=== PATIENT | female | born 1980 | race African-American/Black ===

== ENCOUNTER 2016-12-29 07:23 | Emergency (ER) | payer MEDICAID ==
[~2016-12-29] VITALS: Ht 170.2 cm; Wt 54.4 kg
[~2016-12-29 07:23] MED LIST: AMOXICILLIN500 MG ORAL; AUGMENTIN 875-1 EAC1 ORAL; CLINDAMYCIN HC300 MG ORAL; IBUPROFEN600 MG ORAL; NKM; ROBITUSSIN DM5 ML GT; VITAFOL-OB+DHA1 EACH PO; ZOFRAN ODT4 MG ORAL
[2016-12-29] MEDS ORDERED: CORTISPORIN EAR10 ML OTIC (07:51)
[2016-12-29] MEDS ORDERED: IBUPROFEN600 MG ORAL (07:51)
[2016-12-29] MEDS ORDERED: CIPROFLOXACIN500 M2 ORAL (07:51)
--- NOTE | 2016-12-29 08:26 | Emergency Room Report ---
History of Present Illness General Chief Complaint: Earache Source: Patient Present Illness HPI 36YO F with 2 days left ear pain, decreased hearing, drainage from ear. Denies fever/chills or frequent ear infections. Denies HTN, DM. Allergies: Coded Allergies: No Known Allergies (Unverified , 08/20/14) Patient History Past Medical History: none Past Surgical History: none Pertinent Family History: none Social History: Denies: alcohol use, drug use, smoking Last Menstrual Period: 11/2016 Now: No Immunizations: UTD Reviewed Nursing Documentation: PMH: Agreed, PSxH: Agreed Nursing Documentation-PMH Past Medical History: No Stated History Review of Systems All Other Systems: negative except mentioned in HPI Physical Exam Vital Signs Date Time Temp Pulse Resp B/P Pulse Ox O2 Delivery O2 Flow Rate FiO2 12/29/16 07:27 98.2 70 14 126/87 98 Room Air Sp02 EP Interpretation: reviewed, normal General Appearance: normal inspection, well appearing, no apparent distress, alert, GCS 15, non-toxic Head: normocephalic, atraumatic Eyes: bilateral eye EOMI, bilateral eye PERRL ENT: normal ENT inspection, hearing grossly normal, normal pharynx, no angioedema, normal voice, uvula midline, moist mucus membranes, other - Left outter ear swollen, purulent drainage. No pinna ttp. No ttp overlying mastoid. Neck: normal inspection, full range of motion, supple, no bony tend Respiratory: normal inspection, lungs clear, normal breath sounds, no respiratory distress, no retraction, no wheezing Cardiovascular #1: regular rate, rhythm, no edema Gastrointestinal: normal inspection, normal bowel sounds, non tender, soft, no guarding, no hernia Genitourinary: no CVA tenderness Musculoskeletal: normal inspection, back normal, normal range of motion, Gee' s Sign negative Neurologic: normal inspection, alert, oriented x3, responsive, printing roller polisher III-XII nml as tested, motor strength/tone normal, speech normal Psychiatric: normal inspection, judgement/insight normal, mood/affect normal Skin: normal inspection, normal color, no rash Lymphatic: normal inspection Medical Decision Making Diagnostic Impression: Primary Impression: Earache, left ER Course 36YOF with left earache. VSS. Afebrile. Concern for left otitis externa NOT malignant as no pinna or mastoid ttp and no DM comorbidity Ear wick placed in left ear and I placed initial otic drops Rx otic drops, PO Abx, Analgesia Advised return in 3 days to replace wick Last Vital Signs Date Time Temp Pulse Resp B/P Pulse Ox O2 Delivery O2 Flow Rate FiO2 12/29/16 07:27 98.2 70 14 126/87 98 Room Air Status: improved Disposition: HOME, SELF-CARE Condition: Improved Scripts Ibuprofen* (MOTRIN*) 600 Mg Tablet 600 MG ORAL THREE TIMES A DAY, #30 TAB 0 Refills Prov: TONIA RAMESH M.D. 12/29/16 Ciprofloxacin Hcl* (CIPROFLOXACIN HCL*) 500 Mg Tablet 500 MG ORAL Q12H for 7 Days, #14 TAB 0 Refills Prov: TONIA RAMESH M.D. 12/29/16 Neomycin/Polymyxin B Sulf/Hc* (CORTISPORIN EAR SOLUTION*) 10 Ml Solution 4 DROP OTIC TID for 10 Days, #1 EA Instill in affected ear as directed for 7 days Prov: TONIA RAMESH M.D. 12/29/16 Referrals: NON PHYSICIAN (PCP) Patient Instructions: Otitis Externa, [id number] Additional Instructions: - Use ear drops in left ear as prescribed - Take ALL the oral antibiotic as prescribed - Ibuprofen every 8 hours with food for pain - Return to ER in 1 week for wick removal - Follow up with primary care doctor TONIA RAMESH M.D. Dec 29, 2016 08:26
[2016-12-29 08:40] VITALS: BP 126/87
[2016-12-29 08:41] VITALS: BP 126/87
== END 2016-12-29 08:41 | disposition home or self-care (01) ==
LOC: EMR 07:44
DX: H92.02 Otalgia, left ear (principal)
CPT/HCPCS: 99284

== ENCOUNTER 2017-03-31 23:12 | Emergency (ER) | payer MEDICAID ==
[~2017-03-31] VITALS: Ht 167.6 cm; Wt 49.9 kg
[~2017-03-31 23:12] MED LIST changes: +CIPROFLOXACIN500 M2 ORAL; +CORTISPORIN EAR10 ML OTIC
[2017-03-31 23:25] VITALS: BP 110/70
[2017-03-31] MEDS ORDERED: TYLENOL EXTRA500 MG ORAL (23:39)
[2017-03-31] MEDS ORDERED: Acetaminophen 500mg (ES) tab ORAL ONE (23:45)
[2017-03-31 23:54] VITALS: BP 110/70
--- NOTE | 2017-04-01 01:10 | Emergency Room Report ---
History of Present Illness General Chief Complaint: Head Injury Source: Patient Present Illness HPI 36-year-old female presents ED complaining of headache x3 days. States that 3 days ago she had a slip and fall in the bathroom she hit her head against a towel rack. Denies LOC. Notes persistent pain to left side of her head since. Pain is sharp, 7/10, nonradiating. Denies any nausea or vomiting. Denies any photophobia or blurry vision. Denies any amnesia regarding the events. Patient does not take any blood thinners. No other aggravating or relieving factors. Denies any other associated symptoms Allergies: Coded Allergies: No Known Allergies (Unverified , 08/20/14) Patient History Past Medical History: none Past Surgical History: none Pertinent Family History: none Social History: Denies: alcohol use, drug use, smoking Now: No - 03/17/17 Immunizations: UTD Reviewed Nursing Documentation: PMH: Agreed, PSxH: Agreed Nursing Documentation-PMH Past Medical History: No Stated History Hx Cardiac Problems: No Hx Hypertension: No Hx Pacemaker: No Hx Asthma: No Hx COPD: No Hx Diabetes: No Hx Cancer: No Hx Gastrointestinal Problems: No Hx Dialysis: No History Of Psychiatric Problem: No Hx Neurological Problems: No Hx Cerebrovascular Accident: No Hx Seizures: No Review of Systems All Other Systems: negative except mentioned in HPI Physical Exam Vital Signs Date Time Temp Pulse Resp B/P Pulse Ox O2 Delivery O2 Flow Rate FiO2 03/31/17 23:18 98.4 78 16 110/70 98 Room Air Sp02 EP Interpretation: reviewed, normal General Appearance: no apparent distress, alert, GCS 15, non-toxic Head: normocephalic, other - TTP L parietal scalp Eyes: bilateral eye PERRL, bilateral eye normal inspection ENT: hearing grossly normal, normal pharynx, no angioedema, normal voice Neck: full range of motion, no bony tend, supple/symm/no masses Respiratory: normal inspection Cardiovascular #1: normal inspection Gastrointestinal: normal inspection Rectal: deferred Genitourinary: no CVA tenderness Musculoskeletal: normal inspection Neurologic: alert, oriented x3, responsive, motor strength/tone normal, sensory intact, speech normal Psychiatric: normal inspection Skin: normal inspection Lymphatic: normal inspection Medical Decision Making Diagnostic Impression: Primary Impression: Acute head injury Qualified Codes: S09.90XA - Unspecified injury of head, initial encounter ER Course Hospital Course 36-year-old female presents ED complaining of headache s/p hitting head on towel rack. x 3 days Differential diagnoses include: scalp laceration, scalp contusion, concussion, intracranial injry Clinical course Patient placed on stretcher. After initial history, my physical exam reveals a young female in no acute distress. Her is point tenderness to the left parietal scalp at the site of injury. However no laceration noted. Small nodular swelling noted at site No thomason sign. No hemotympanum. remainder of physical exam unremarkable. per gabonese head CT rules, she is at low risk for intracranial injury. CT not warranted at this time. Patient agrees. given tylenol in ED Diagnosis - acute head injury Stable and discharged to home with Rx Tylenol. Followup with PMD. Return to ED if symptoms recur or worsen Last Vital Signs Date Time Temp Pulse Resp B/P Pulse Ox O2 Delivery O2 Flow Rate FiO2 03/31/17 23:18 98.4 78 16 110/70 98 Room Air Status: improved Disposition: HOME, SELF-CARE Condition: Stable Scripts Acetaminophen* (TYLENOL EXTRA STRENGTH*) 500 Mg Tablet 500 MG ORAL Q8H Y for Prn Headache/Temp > 101, #30 TAB 0 Refills Prov: JESSE YEN M.D. 03/31/17 Referrals: [facility],REFERR[facility] (PCP) Patient Instructions: Post-Concussion Syndrome, [id number] JESSE YEN M.D. Apr 01, 2017 01:10
== END 2017-03-31 23:54 | disposition home or self-care (01) ==
LOC: EMR 23:34
DX: S09.90XA Unspecified injury of head, initial encounter (principal); W01.198A Fall on same level from slipping, tripping and stumbling with subsequent striking against other object, initial encounter; Y92.002 Bathroom of unspecified non-institutional (private) residence as the place of occurrence of the external cause
CPT/HCPCS: 99284

== ENCOUNTER 2017-04-13 06:39 | Emergency (ER) | payer MEDICAID ==
[~2017-04-13] VITALS: Ht 170.2 cm; Wt 59.0 kg
[~2017-04-13 06:39] MED LIST changes: +TYLENOL EXTRA500 MG ORAL
[2017-04-13 08:13] LABS: BASOPHILS % (AUTO) 1.2 % (0.0-2.0); LYMPHOCYTES % (AUTO) 51.7 % (20.0-45.0); MEAN CORPUSCULAR HEMOGLOBIN 29.9 PG (27.0-31.0); MEAN CORPUSCULAR HGB CONC 32.5 G/DL (32.0-36.0); MEAN CORPUSCULAR VOLUME 92 FL (80-99); MEAN PLATELET VOLUME 8.3 FL (6.5-10.1); MONOCYTES % (AUTO) 8.8 % (1.0-10.0); NEUTROPHILS % (AUTO) 35.3 % (45.0-75.0); PLATELET COUNT 163 K/UL (150-450); RED BLOOD COUNT 4.45 M/UL (4.20-5.40); RED CELL DISTRIBUTION WIDTH 12.1 % (11.6-14.8); WHITE BLOOD COUNT 3.7 K/UL (4.8-10.8)
[2017-04-13 08:22] VITALS: BP 135/67
[2017-04-13 08:32] LABS: ALANINE AMINOTRANSFERASE 10 U/L (3-33); ALBUMIN/GLOBULIN RATIO 1.6 (1.0-2.7); ANION GAP 10 (5-15); ASPARTATE AMINO TRANSFERASE 14 U/L (5-40); CALCIUM 10.2 mg/dL (8.6-10.2); CARBON DIOXIDE 26 mEQ/L (20-30); CHLORIDE 103 mEQ/L (98-107); CREATININE 0.7 mg/dL (0.5-0.9); GLOMERULAR FILTRATION RATE > 60 mL/min (>60); HEMOLYSIS 3; POTASSIUM 4.3 mEQ/L (3.4-4.9); SODIUM 139 mEQ/L (135-145); TOTAL PROTEIN 6.9 g/dL (6.6-8.7)
--- NOTE | 2017-04-13 08:37 | Emergency Room Report ---
History of Present Illness General Chief Complaint: Pain Source: Patient Present Illness HPI 36-year-old female presents to ED complaining of pain to her right thigh. States that she had an "infection" of her skin; was seen in urgent care approximately 2 weeks ago and was prescribed antibiotics. Patient states she's been compliant with the clindamycin but states the pain persists. Pain is a 8/ 10, throbbing, localized to the posterior proximal right thigh, nonradiating. Denies fevers or chills. Denies any discharge. Patient states able to walk without difficulty. Denies any discharge. No other aggravating or relieving factors. Denies any other associated symptoms Allergies: Coded Allergies: No Known Allergies (Unverified , 08/20/14) Patient History Past Medical History: none Past Surgical History: none Pertinent Family History: none Social History: Denies: alcohol use, drug use, smoking Last Menstrual Period: now Now: No Immunizations: UTD Reviewed Nursing Documentation: PMH: Agreed, PSxH: Agreed Nursing Documentation-PMH Past Medical History: No Stated History Hx Cardiac Problems: No Hx Hypertension: No Hx Pacemaker: No Hx Asthma: No Hx COPD: No Hx Diabetes: No Hx Cancer: No Hx Gastrointestinal Problems: No Hx Dialysis: No Hx Neurological Problems: No Hx Cerebrovascular Accident: No Hx Seizures: No Review of Systems All Other Systems: negative except mentioned in HPI Physical Exam Vital Signs Date Time Temp Pulse Resp B/P Pulse Ox O2 Delivery O2 Flow Rate FiO2 04/13/17 07:05 97.9 56 18 135/67 98 Room Air Sp02 EP Interpretation: reviewed, normal General Appearance: no apparent distress, alert, GCS 15, non-toxic Head: normocephalic Eyes: bilateral eye PERRL, bilateral eye normal inspection ENT: normal ENT inspection Neck: normal inspection Respiratory: normal inspection Cardiovascular #1: normal inspection Gastrointestinal: normal bowel sounds, non tender, soft, non-distended, no guarding, no rebound Rectal: deferred Genitourinary: no CVA tenderness Musculoskeletal: back normal, gait/station normal, normal range of motion, tender - TTP proximal R posterior thigh Neurologic: alert, oriented x3, responsive, motor strength/tone normal, sensory intact, speech normal Psychiatric: judgement/insight normal, memory normal, mood/affect normal, no suicidal/homicidal ideation Skin: normal inspection Lymphatic: normal inspection Procedures Additional Procedure Procedure Narrative Bedside ultrasound Patient placed in left lateral decubitus position. Ultrasound probe was applied using sterile technique. Evidence of cobblestoning noted underneath the subcutaneous tissue. No induration. No fluctuance. No signs of abscess. She tolerated procedure without difficulty Medical Decision Making Diagnostic Impression: Primary Impression: Cellulitis of right thigh ER Course 36-year-old female presents to ED complaining of pain to the right thigh. Was initially treated for cellulitis at an urgent care Differential-abscess, cellulitis, dermatitis She placed on stretcher after initial history physical exam reveals a female in no acute distress. There is some palpable tenderness to the right posterior thigh but there is no signs of induration or erythema. No fluctuance. Patient initially very upset, give limited information to the triage nurse. Explained to patient that we can check some blood work to insure no signs of systemic infection and consider noninvasive imaging of the leg Given the patient is young and there is no signs of systemic toxicity we both agree that CT imaging is not warranted at this time I performed bedside ultrasound on the affected leg I ordered the site of tenderness there is some evidence of cobblestoning consistent with cellulitis. There is no evidence of a deep abscess Labs were performed and were unremarkable. No leukocytosis, hemoglobin within normal limits, glucose okay Discussed findings with the patient. Patient is now more comfortable and amicable. Continue antibiotics for the patient, prescribe stronger pain medication. I did discuss the option for the patient to return to ED for CT imaging if symptoms do not improve. She states she is not happy with her PMD. I did provide her referral information for PMD here Diagnosed as cellulitis of right thigh Stable and discharged to home with prescription for Bactrim,, #3. Warm compresses. Followup with PMD. Return to ED if symptoms recur or worsen Labs Test 04/13/17 07:45 White Blood Count 3.7 K/UL (4.8-10.8) Red Blood Count 4.45 M/UL (4.20-5.40) Hemoglobin 13.3 G/DL (12.0-16.0) Hematocrit 41.0 % (37.0-47.0) Mean Corpuscular Volume 92 FL (80-99) Mean Corpuscular Hemoglobin 29.9 PG (27.0-31.0) Mean Corpuscular Hemoglobin Concent 32.5 G/DL (32.0-36.0) Red Cell Distribution Width 12.1 % (11.6-14.8) Platelet Count 163 K/UL (150-450) Mean Platelet Volume 8.3 FL (6.5-10.1) Neutrophils (%) (Auto) 35.3 % (45.0-75.0) Lymphocytes (%) (Auto) 51.7 % (20.0-45.0) Monocytes (%) (Auto) 8.8 % (1.0-10.0) Eosinophils (%) (Auto) 3.0 % (0.0-3.0) Basophils (%) (Auto) 1.2 % (0.0-2.0) Sodium Level 139 mEQ/L (135-145) Potassium Level 4.3 mEQ/L (3.4-4.9) Chloride Level 103 mEQ/L (98-107) Carbon Dioxide Level 26 mEQ/L (20-30) Anion Gap 10 (5-15) Blood Urea Nitrogen 14 mg/dL (7-23) Creatinine 0.7 mg/dL (0.5-0.9) Estimat Glomerular Filtration Rate > 60 mL/min (>60) Glucose Level 104 mg/dL (74-106) Calcium Level 10.2 mg/dL (8.6-10.2) Total Bilirubin 0.3 mg/dL (0.0-1.2) Aspartate Amino Transf (AST/SGOT) 14 U/L (5-40) Alanine Aminotransferase (ALT/SGPT) 10 U/L (3-33) Alkaline Phosphatase 55 U/L (35-104) Total Protein 6.9 g/dL (6.6-8.7) Albumin 4.3 g/dL (3.5-5.2) Globulin 2.6 g/dL Albumin/Globulin Ratio 1.6 (1.0-2.7) Last Vital Signs Date Time Temp Pulse Resp B/P Pulse Ox O2 Delivery O2 Flow Rate FiO2 04/13/17 08:22 97.9 18 135/67 98 Room Air 04/13/17 07:05 56 Status: improved Disposition: HOME, SELF-CARE Condition: Stable Scripts Trimethoprim/Sulfamethoxazole 160/800* (BACTRIM DS TABLET*) 1 Each Tablet 1 TAB ORAL Q12H, #14 TAB 0 Refills Prov: JESSE YEN M.D. 04/13/17 Acetaminophen With Codeine (T#3) (TYLENOL #3 TAB*) Y Tab 1 TAB ORAL Q8H Y for For Pain, #20 TAB Prov: JESSE YEN M.D. 04/13/17 Referrals: [facility]ERR[facility] (PCP) JESSE YEN M.D. Apr 13, 2017 08:37
[2017-04-13] MEDS ORDERED: BACTRIM DS TAB1 EAC1 ORAL (08:40)
[2017-04-13] MEDS ORDERED: ACETAMINOPHEN-1 EAC1 ORAL (08:40)
[2017-04-13 08:42] VITALS: BP 135/67
== END 2017-04-13 08:42 | disposition home or self-care (01) ==
LOC: EMR 07:23
DX: L03.115 Cellulitis of right lower limb (principal)
CPT/HCPCS: 36415; 80053; 85025; 99284

== ENCOUNTER 2017-06-01 15:11 | Emergency (ER) | payer MEDICAID ==
[~2017-06-01] VITALS: Ht 170.2 cm; Wt 58.1 kg
[~2017-06-01 15:11] MED LIST changes: +ACETAMINOPHEN-1 EAC1 ORAL; +BACTRIM DS TAB1 EAC1 ORAL
--- NOTE | 2017-06-01 15:35 | Emergency Room Report ---
History of Present Illness General Chief Complaint: Sore Throat Source: Patient Present Illness HPI 36 YO female presents to the ED c/o : sore throat x 2 days, no fevers, chills, nasal congestion, body aches, neck stiffness or GODINEZ. reports ill contact who is being treated for pharyngis, pt. states she shared smoking equipment with friend who is now sick. She denies rashes, abdominal pain, cough, she of immunocompromise, wheezing, history of asthma or COPD. Denies CP, Palpitations, LOC, AMS, dizziness, Changes in Vision, Sensation, paresthesias, or a sudden severe headache. Allergies: Coded Allergies: No Known Allergies (Unverified , 08/20/14) Patient History Past Medical History: see triage record Past Surgical History: none Pertinent Family History: none Last Menstrual Period: on period Now: No Immunizations: UTD Reviewed Nursing Documentation: PMH: Agreed, PSxH: Agreed Nursing Documentation-PMH Past Medical History: No Stated History Hx Cardiac Problems: No Hx Hypertension: No Hx Pacemaker: No Hx Asthma: No Hx COPD: No Hx Diabetes: No Hx Cancer: No Hx Gastrointestinal Problems: No Hx Dialysis: No History Of Psychiatric Problem: No Hx Neurological Problems: No Hx Cerebrovascular Accident: No Hx Seizures: No Review of Systems All Other Systems: negative except mentioned in HPI Physical Exam Vital Signs Date Time Temp Pulse Resp B/P (MAP) Pulse Ox O2 Delivery O2 Flow Rate FiO2 06/01/17 15:20 98.1 60 16 117/80 98 Room Air Sp02 EP Interpretation: reviewed, normal General Appearance: no apparent distress, alert, GCS 15, non-toxic Head: normocephalic, atraumatic Eyes: bilateral eye normal inspection, bilateral eye PERRL ENT: hearing grossly normal, normal pharynx, no angioedema, normal voice, TMs + canals normal, uvula midline, pharyngeal erythema - very mild erythema, no exudates, no tonsillar swelling, no LAD Neck: full range of motion, no meningismus, no bony tend, supple/symm/no masses Respiratory: chest non-tender, lungs clear, normal breath sounds, no respiratory distress, no wheezing, speaking full sentences Cardiovascular #1: regular rate, rhythm Gastrointestinal: normal bowel sounds, non tender, soft, no guarding, no rebound Rectal: deferred Genitourinary: normal inspection, no CVA tenderness Musculoskeletal: back normal, gait/station normal, normal range of motion, non- tender Neurologic: alert, oriented x3, responsive, motor strength/tone normal, sensory intact, speech normal Psychiatric: judgement/insight normal, memory normal, mood/affect normal Skin: normal color, no rash, warm/dry, well hydrated Lymphatic: no adenopathy Medical Decision Making PA Attestation Dr. conte is my supervising Physician whom patient management has been discussed with. Diagnostic Impression: Primary Impression: Pharyngitis, acute Qualified Codes: J02.9 - Acute pharyngitis, unspecified ER Course 36 YO female presents to the ED c/o : sore throat x 2 days, no fevers, chills, nasal congestion, body aches, neck stiffness or GODINEZ. reports ill contact who is being treated for pharyngis, pt. states she shared smoking equipment with friend who is now sick. She denies rashes, abdominal pain, cough, she of immunocompromise, wheezing, history of asthma or COPD. Denies CP, Palpitations, LOC, AMS, dizziness, Changes in Vision, Sensation, paresthesias, or a sudden severe headache. Ddx considered but are not limited to: pharyngitis, strep, COLLAR STARCHER, ludwigs angina, URI Vital signs: are WNL, pt. is afebrile H&PE are most consistent with: pharyngitis presumed irritant , viral less likely due to absence of additional symptoms. ORDERS: None required at this time as the diagnosis is clinical ED INTERVENTIONS: none required at this time. - pt given reassurance. - D/w pt. conservative treatment with PMD follow up . Pt given ED return precautions. DISCHARGE: At this time pt. is stable for d/c to home. Will provide printed patient care instructions, and any necessary prescriptions. Care plan and follow up instructions have been discussed with the patient prior to discharge. Last Vital Signs Date Time Temp Pulse Resp B/P (MAP) Pulse Ox O2 Delivery O2 Flow Rate FiO2 06/01/17 15:20 98.1 60 16 117/80 98 Room Air Disposition: HOME, SELF-CARE Condition: Stable Scripts Lidocaine HCl 2% Viscous (Lidocaine HCl 2% Viscous) 100 Ml Solution 15 ML ORAL QID, #160 ML Prov: Ligia Junior P.A. 9/16/17 Ibuprofen* (MOTRIN*) 600 Mg Tablet 600 MG ORAL THREE TIMES A DAY, #30 TAB 0 Refills Prov: Ligia Junior 06/01/17 Departure Forms: Return to Work Return to Work Date: Jun 04, 2017 Work Restrictions: None Return to Full Activity: Jun 04, 2017 Patient Instructions: Pharyngitis, Sore Throat Additional Instructions: Take medications as directed. Follow up with a Primary Care Provider in 3-5 days, even if your symptoms have resolved. --Please review list of primary care clinics, if you do not already have a primary care provider Return sooner to ED if new symptoms occur, or current symptoms become worse. - Please note that this Emergency Department Report was dictated using [employer] network engineer technology software, occasionally this can lead to erroneous entry secondary to interpretation by the dictation equipment. Ligia Junior Jun 01, 2017 15:35
[2017-06-01] MEDS ORDERED: IBUPROFEN600 MG ORAL (15:36)
[2017-06-01] MEDS ORDERED: LIDOCAINE VISC100 ML ORAL (15:36)
[2017-06-01 15:41] VITALS: BP 117/80
== END 2017-06-01 16:37 | disposition home or self-care (01) ==
LOC: EMR 16:01
DX: J02.9 Acute pharyngitis, unspecified (principal)
CPT/HCPCS: 99284

== ENCOUNTER 2017-07-30 21:19 | Emergency (ER) | payer MEDICAID ==
[~2017-07-30] VITALS: Ht 170.2 cm; Wt 56.7 kg
[~2017-07-30 21:19] MED LIST changes: +LIDOCAINE VISC100 ML ORAL
[2017-07-30 21:46] VITALS: BP 122/77
[2017-07-30 22:29] LABS: ANION GAP 6 mmol/L (5-15); BASOPHILS % (AUTO) 1.5 % (0.0-2.0); CALCIUM 9.9 MG/DL (8.5-10.1); CARBON DIOXIDE 29 MMOL/L (21-32); CHLORIDE 104 MMOL/L (98-107); CREATININE 0.8 MG/DL (0.55-1.30); EOSINOPHILS % (AUTO) 2.2 % (0.0-3.0); GLOMERULAR FILTRATION RATE > 60 mL/min (>60); LYMPHOCYTES % (AUTO) 49.4 % (20.0-45.0); MEAN CORPUSCULAR HEMOGLOBIN 28.9 PG (27.0-31.0); MEAN CORPUSCULAR HGB CONC 31.2 G/DL (32.0-36.0); MEAN CORPUSCULAR VOLUME 93 FL (80-99); MEAN PLATELET VOLUME 7.6 FL (6.5-10.1); MONOCYTES % (AUTO) 5.6 % (1.0-10.0); NEUTROPHILS % (AUTO) 41.4 % (45.0-75.0); PLATELET COUNT 169 K/UL (150-450); POTASSIUM 3.9 MMOL/L (3.5-5.1); RED BLOOD COUNT 4.45 M/UL (4.20-5.40); RED CELL DISTRIBUTION WIDTH 11.4 % (11.6-14.8); SODIUM 139 MMOL/L (136-145)
[2017-07-30 22:43] LABS: ALANINE AMINOTRANSFERASE 17 U/L (12-78); ALBUMIN/GLOBULIN RATIO 1.2 (1.0-2.7); ASPARTATE AMINO TRANSFERASE 14 U/L (15-37); MAGNESIUM 1.8 MG/DL (1.8-2.4); THYROID STIMULATING HORMONE 1.659 uiU/mL (0.360-3.740); TOTAL PROTEIN 7.6 G/DL (6.4-8.2)
[2017-07-30 23:35] LABS: ERYTHROCYTE SEDIMENTATION RATE 1 MM/HR (0-20)
[2017-07-30 23:55] VITALS: BP 122/77
--- NOTE | 2017-07-31 04:31 | Emergency Room Report ---
History of Present Illness General Chief Complaint: Neck Pain Source: Patient Present Illness HPI Patient is a 36-year-old female who presented after increased neck pain and right-sided arm numbness. Patient gradual onset of symptoms. She reports having discomfort to the entire right hand. She reports having this having some numbness sensation. The patient denies recent trauma. She reports no alcohol use. She states that intermittently her hands will changed colors to a purplish especially with cold. She denies any fever. She denied having any chest pain the patient reports having some pain to the right side of her neck. Allergies: Coded Allergies: No Known Allergies (Unverified , 08/20/14) Patient History Past Medical History: see triage record Last Menstrual Period: Jul Reviewed Nursing Documentation: PMH: Agreed, PSxH: Agreed Nursing Documentation-PMH Hx Cardiac Problems: No Hx Hypertension: No Hx Pacemaker: No Hx Asthma: No Hx COPD: No Hx Diabetes: No Hx Cancer: No Hx Gastrointestinal Problems: No Hx Dialysis: No Hx Neurological Problems: No Hx Cerebrovascular Accident: No Hx Seizures: No Review of Systems All Other Systems: negative except mentioned in HPI Physical Exam Vital Signs Date Time Temp Pulse Resp B/P (MAP) Pulse Ox O2 Delivery O2 Flow Rate FiO2 07/30/17 21:30 97.9 88 16 99 Room Air 07/30/17 21:46 122/77 Sp02 EP Interpretation: reviewed, normal General Appearance: normal inspection, well appearing, no apparent distress, alert, GCS 15, non-toxic Head: atraumatic ENT: normal ENT inspection, hearing grossly normal, normal voice Neck: normal inspection, full range of motion, supple, no bony tend Respiratory: normal inspection, lungs clear, normal breath sounds, no respiratory distress, no retraction, no wheezing Cardiovascular #1: regular rate, rhythm, no edema Gastrointestinal: normal inspection, normal bowel sounds, non tender, soft, no guarding, no hernia Genitourinary: no CVA tenderness Musculoskeletal: normal inspection, back normal, normal range of motion Neurologic: normal inspection, alert, oriented x3, responsive, county judge III-XII nml as tested, speech normal Psychiatric: normal inspection, judgement/insight normal, mood/affect normal Skin: normal inspection, normal color, no rash Medical Decision Making Diagnostic Impression: Primary Impression: Paresthesias ER Course Patient presented for upper extremity pain. Differential diagnosis included but was not limited to fracture, contusion, multiple sclerosis, aortic dissection vascular insufficiency, cellulitis. Because of complexity of patient's case laboratory testing and imaging studies were ordered. Laboratory testing was unremarkable. Patient was noted to have some evidence of hyperreflexia. TSH was normal patient's a sedimentation rate was also normal. Patient was advised that she should followup with her primary care physician for further evaluation and possible MRI. The patient is advised to follow up with primary care doctor in 1-2 days. Patient is advised to return if any worsening condition or if any changes in status that are concerning. Labs Test 07/30/17 22:00 07/30/17 22:15 White Blood Count 6.0 K/UL (4.8-10.8) Red Blood Count 4.45 M/UL (4.20-5.40) Hemoglobin 12.9 G/DL (12.0-16.0) Hematocrit 41.2 % (37.0-47.0) Mean Corpuscular Volume 93 FL (80-99) Mean Corpuscular Hemoglobin 28.9 PG (27.0-31.0) Mean Corpuscular Hemoglobin Concent 31.2 G/DL (32.0-36.0) Red Cell Distribution Width 11.4 % (11.6-14.8) Platelet Count 169 K/UL (150-450) Mean Platelet Volume 7.6 FL (6.5-10.1) Neutrophils (%) (Auto) 41.4 % (45.0-75.0) Lymphocytes (%) (Auto) 49.4 % (20.0-45.0) Monocytes (%) (Auto) 5.6 % (1.0-10.0) Eosinophils (%) (Auto) 2.2 % (0.0-3.0) Basophils (%) (Auto) 1.5 % (0.0-2.0) Erythrocyte Sedimentation Rate 1 MM/HR (0-20) Sodium Level 139 MMOL/L (136-145) Potassium Level 3.9 MMOL/L (3.5-5.1) Chloride Level 104 MMOL/L (98-107) Carbon Dioxide Level 29 MMOL/L (21-32) Anion Gap 6 mmol/L (5-15) Blood Urea Nitrogen 7 mg/dL (7-18) Creatinine 0.8 MG/DL (0.55-1.30) Estimat Glomerular Filtration Rate > 60 mL/min (>60) Glucose Level 88 MG/DL (74-106) Calcium Level 9.9 MG/DL (8.5-10.1) Magnesium Level 1.8 MG/DL (1.8-2.4) Total Bilirubin 0.8 MG/DL (0.2-1.0) Aspartate Amino Transf (AST/SGOT) 14 U/L (15-37) Alanine Aminotransferase (ALT/SGPT) 17 U/L (12-78) Alkaline Phosphatase 53 U/L (46-116) Total Protein 7.6 G/DL (6.4-8.2) Albumin 4.1 G/DL (3.4-5.0) Globulin 3.5 g/dL Albumin/Globulin Ratio 1.2 (1.0-2.7) Thyroid Stimulating Hormone (TSH) 1.659 uiU/mL (0.360-3.740) Urine HCG, Qualitative Negative Urine Opiates Screen Negative (NEGATIVE) Urine Barbiturates Screen Negative (NEGATIVE) Phencyclidine (PCP) Screen Negative (NEGATIVE) Urine Amphetamines Screen Negative (NEGATIVE) Urine Benzodiazepines Screen Negative (NEGATIVE) Urine Cocaine Screen Negative (NEGATIVE) Urine Marijuana (THC) Screen Positive (NEGATIVE) EKG Diagnostic Results Rate: normal Rhythm: NSR ST Segments: no acute changes Last Vital Signs Date Time Temp Pulse Resp B/P (MAP) Pulse Ox O2 Delivery O2 Flow Rate FiO2 07/30/17 23:55 97.9 78 17 122/77 100 Room Air Status: improved Disposition: HOME, SELF-CARE Condition: Stable Patient Instructions: Pardella, [id number] Alex Jeff Jul 31, 2017 04:31
--- NOTE | 2017-07-31 09:41 | Diagnostic Imaging Report ---
Indication: PAIN right-sided tingling and numbness Technique: Continuous helical CT scanning of the head was performed without intravenous contrast material. Axial and coronal 5 mm sections were generated. Radiation dose was minimized using automated exposure control Dose: Total Dose Length Product - DLP [address] Dose Index - CTDIvol(s) 70.38 mGy. Comparison: None Findings: The ventricular system is normal in size and configuration. There is no shift of midline structures. No abnormal extra-axial fluid collections are noted. There is no evidence of intracerebral bleeding. No other abnormal high or low density areas are noted within the brain. Intact calvarium. Visualized orbits and sinuses are unremarkable. Impression: Normal CT scan of the head without contrast material. This agrees with the preliminary interpretation provided overnight by [facility] teleradiology service. The CT scanner at [facility] is accredited by the [employer] and the scans are performed using protocols designed to limit radiation exposure to as low as reasonably achievable to attain images of sufficient resolution adequate for diagnostic evaluation.
--- NOTE | 2017-07-31 16:24 | Cardiology Report ---
APPROVED REPORT EKG Measurement Heart [id number] Sinus bradycardia with sinus arrhythmia Septal infarct, age undetermined Abnormal ECG
== END 2017-07-31 00:01 | disposition home or self-care (01) ==
LOC: EMR 22:00
DX: R20.2 Paresthesia of skin (principal); M54.2 Cervicalgia
CPT/HCPCS: 36415; 70450; 80053; 80307; 81025; 83735; 84443; 85025; 85651; 93005; 99284

== ENCOUNTER 2017-09-21 12:43 | Emergency (ER) | payer MEDICAID ==
[~2017-09-21] VITALS: Ht 170.2 cm; Wt 57.2 kg
[2017-09-21] MEDS ORDERED: Lidocaine 1% MPF 10mg/ml 5ml INJ ONE (13:45)
[2017-09-21] MEDS ORDERED: CEPHALEXIN500 MG ORAL (14:10)
[2017-09-21 14:20] VITALS: BP 107/60
--- NOTE | 2017-09-22 12:22 | Emergency Room Report ---
History of Present Illness General Chief Complaint: Pain Source: Patient Present Illness HPI The patient is a 36-year-old female presenting for possible skin infection. She was seen in this emergency department recently and diagnosed with right leg cellulitis. She was given prescription for antibiotics and states that she occasionally took them but not as prescribed. She states that symptoms began to improve but are now returning. She has a 5/10 dull ache to the right thigh and is worse with touch. Does not radiate. She denies any other symptoms including fever, chills, vaginal DC, dysuria Allergies: Coded Allergies: No Known Allergies (Unverified , 08/20/14) Patient History Past Medical History: see triage record Pertinent Family History: none Last Menstrual Period: 09/10/17. Now: No Reviewed Nursing Documentation: PMH: Agreed, PSxH: Agreed Nursing Documentation-PMH Hx Cardiac Problems: No Hx Hypertension: No Hx Pacemaker: No Hx Asthma: No Hx COPD: No Hx Diabetes: No Hx Cancer: No Hx Gastrointestinal Problems: No Hx Dialysis: No History Of Psychiatric Problem: No Hx Neurological Problems: No Hx Cerebrovascular Accident: No Hx Seizures: No Review of Systems All Other Systems: negative except mentioned in HPI Physical Exam Vital Signs Date Time Temp Pulse Resp B/P (MAP) Pulse Ox O2 Delivery O2 Flow Rate FiO2 09/21/17 13:11 97.5 71 17 109/72 98 Room Air Sp02 EP Interpretation: reviewed, normal General Appearance: no apparent distress, alert, GCS 15, non-toxic Head: normocephalic, atraumatic Eyes: bilateral eye normal inspection, bilateral eye PERRL Respiratory: chest non-tender, lungs clear, normal breath sounds, speaking full sentences Musculoskeletal: back normal, gait/station normal, normal range of motion, tender - TTP over the R posterior thigh Neurologic: alert, oriented x3, responsive, motor strength/tone normal, sensory intact, normal gait, speech normal Psychiatric: judgement/insight normal, memory normal, mood/affect normal, no suicidal/homicidal ideation Skin: warm/dry, other - mild erythema to R posterior thigh Medical Decision Making PA Attestation Dr. Harden is my supervising physician. Patient management was discussed with my supervising physician Diagnostic Impression: Primary Impression: Cellulitis of right thigh ER Course The patient is a 36-year-old female presenting for possible skin infection. Differential diagnoses considered but not limited to: abscess, cellulitis, dermatitis, among others PE: Afebrile. NAD Right posterior thigh has an approximately 5 cm erythematous lesion. Mild tenderness to palpation. Skin is warm and dry. No induration External vaginal exam unremarkable. No DC. The patient is given 1 dose of antibiotics in the emergency department and will be discharged with prescription. She was told that she needs to take these as directed in totality in order for the infection to resolve. She understands. ER precautions are given Last Vital Signs Date Time Temp Pulse Resp B/P (MAP) Pulse Ox O2 Delivery O2 Flow Rate FiO2 09/21/17 14:20 68 18 107/60 99 Room Air 09/21/17 14:20 97.5 Status: improved Disposition: HOME, SELF-CARE Condition: Improved Scripts Cephalexin* (KEFLEX*) 500 Mg Capsule 500 MG ORAL EVERY 12 HOURS, #14 CAP 0 Refills Prov: GONZALO RICHMOND 09/21/17 Referrals: [facility],REFERRING (PCP) Patient Instructions: Cellulitis Additional Instructions: I discussed my findings with the patient. All questions and concerns have been answered. Treatment and medication compliance have been addressed. I advised the patient that they need to follow up with PMD in 3-5 days. Return to ED if symptoms worsen, new symptoms arise, or if needed for any reason. Patient verbalized understanding of discharge instructions. GONZALO RICHMOND Sep 22, 2017 12:22
== END 2017-09-21 14:20 | disposition home or self-care (01) ==
LOC: EMR 14:20
DX: L03.115 Cellulitis of right lower limb (principal)
CPT/HCPCS: 96372; 99283; J0696

== ENCOUNTER 2017-12-23 07:13 | Emergency (ER) | payer MEDICAID ==
[~2017-12-23] VITALS: Ht 170.2 cm; Wt 59.0 kg
[~2017-12-23 07:13] MED LIST changes: +CEPHALEXIN500 MG ORAL
[2017-12-23 07:17] VITALS: BP 104/57
[2017-12-23] MEDS ORDERED: CLARITIN-D 121 EAC1 ORAL (07:40)
[2017-12-23] MEDS ORDERED: ADULT WAL-100 MG/5 M ORAL (07:40)
[2017-12-23 07:44] VITALS: BP 104/57
--- NOTE | 2017-12-23 08:52 | Emergency Room Report ---
History of Present Illness General Chief Complaint: Flu Like Symptoms Present Illness HPI Patient is a 37-year-old female presented after increased cough and nasal congestion. Patient gradual onset of symptoms. She reports having increased sore throat. She stated that she had some bilateral eye crusting in the morning. She denies any vomiting.She denies any neck stiffness. She states that she had been having symptoms for the past 3-4 days. She reports some sick contacts at work. Allergies: Coded Allergies: No Known Allergies (Unverified , 08/20/14) Patient History Past Medical History: see triage record Now: No Reviewed Nursing Documentation: PMH: Agreed; PSxH: Agreed Nursing Documentation-PMH Hx Cardiac Problems: No Hx Hypertension: No Hx Pacemaker: No Hx Asthma: No Hx COPD: No Hx Diabetes: No Hx Cancer: No Hx Gastrointestinal Problems: No Hx Dialysis: No Hx Neurological Problems: No Hx Cerebrovascular Accident: No Hx Seizures: No Review of Systems All Other Systems: negative except mentioned in HPI Physical Exam Vital Signs Date Time Temp Pulse Resp B/P (MAP) Pulse Ox O2 Delivery O2 Flow Rate FiO2 12/23/17 07:17 97.8 71 20 104/57 99 Room Air 97.9 General Appearance: well appearing, no apparent distress, alert, GCS 15 Head: normocephalic, atraumatic ENT: hearing grossly normal, normal voice Neck: full range of motion, supple Respiratory: lungs clear, no respiratory distress, speaking full sentences Cardiovascular #1: normal peripheral pulses, regular rate, rhythm, no edema Gastrointestinal: normal inspection, normal bowel sounds, non tender, soft Musculoskeletal: no calf tenderness Neurologic: normal inspection, alert, oriented x3, normal gait Psychiatric: mood/affect normal Skin: no rash Medical Decision Making Diagnostic Impression: Primary Impression: Upper respiratory infection ER Course Patient presented for cough. Differential diagnosis included but was not limited to bronchitis, pneumonia, pulmonary embolism, pericarditis, asthma, foreign body. Patient has a benign exam and does not appear to require any further imaging or laboratory testing at this time. The patient denies being . The patient appears to have an upper respiratory infection which appears to be viral. She does not appear to require antibiotics at this time. Patient was advised to be rechecked by her primary care physician in one to 2 days. Last Vital Signs Date Time Temp Pulse Resp B/P (MAP) Pulse Ox O2 Delivery O2 Flow Rate FiO2 12/23/17 07:44 97.8 20 104/57 99 Room Air 97.9 12/23/17 07:26 71 Status: improved Disposition: HOME, SELF-CARE Condition: Stable Scripts Guaifenesin* (ADULT WAL-TUSSIN*) 100 Mg/5 Ml Liquid 10 ML ORAL Q4H, #120 ML Prov: Alex Jeff 12/23/17 Loratadine/Pseudoephedrine (CLARITIN-D 12 HOUR TABLET) 1 Each Tab.er.12h 1 TAB ORAL EVERY 12 HOURS, #20 TAB Prov: Alex Jeff 12/23/17 Referrals: [facility]ERR[facility] (PCP) Departure Forms: Return to Work Return to Work in (Days): 3 Patient Instructions: Upper Respiratory Infection, Adult, [id number] Alex Jeff Dec 23, 2017 08:52
== END 2017-12-23 07:45 | disposition home or self-care (01) ==
LOC: EMR 07:43
DX: J06.9 Acute upper respiratory infection, unspecified (principal)
CPT/HCPCS: 99284

== ENCOUNTER 2018-03-02 02:47 | Emergency (ER) | payer MEDICAID ==
[~2018-03-02] VITALS: Ht 170.2 cm; Wt 59.9 kg
[~2018-03-02 02:47] MED LIST changes: +ADULT WAL-100 MG/5 M ORAL; +CLARITIN-D 121 EAC1 ORAL
[2018-03-02 03:04] VITALS: BP 101/50
[2018-03-02] MEDS ORDERED: CEPHALEXIN500 MG ORAL (03:11)
[2018-03-02] MEDS ORDERED: PREDNISONE20 MG ORAL (03:11)
[2018-03-02] MEDS ORDERED: DIPHENHYDRAMINE25 M1 ORAL (03:11)
[2018-03-02 03:22] VITALS: BP 101/50
--- NOTE | 2018-03-02 05:43 | Emergency Room Report ---
History of Present Illness General Chief Complaint: General Complaint Source: Patient Present Illness HPI 37-year-old female presents ED complaining of lower lip swelling. Started a few days ago. States that she ate shrimp shortly prior to onset of symptoms. Denies any known food or drug allergies. Denies any tongue swelling or throat swelling. Denies any rash. States pain is dull, 7 out of 10, nonradiating. No other aggravating relieving factors. Denies any other associated symptoms Allergies: Coded Allergies: No Known Allergies (Unverified , 08/20/14) Patient History Past Medical History: none Past Surgical History: none Pertinent Family History: none Social History: Denies: smoking, alcohol use, drug use Last Menstrual Period: 02/16/18 Now: No Immunizations: UTD Reviewed Nursing Documentation: PMH: Agreed; PSxH: Agreed Nursing Documentation-PMH Past Medical History: No Stated History Hx Cardiac Problems: No Hx Hypertension: No Hx Pacemaker: No Hx Asthma: No Hx COPD: No Hx Diabetes: No Hx Cancer: No Hx Gastrointestinal Problems: No Hx Dialysis: No Hx Neurological Problems: No Hx Cerebrovascular Accident: No Hx Seizures: No Review of Systems All Other Systems: negative except mentioned in HPI Physical Exam Vital Signs Date Time Temp Pulse Resp B/P (MAP) Pulse Ox O2 Delivery O2 Flow Rate FiO2 03/02/18 02:52 97.8 70 16 101/50 99 Room Air 97.9 Sp02 EP Interpretation: reviewed, normal General Appearance: no apparent distress, alert, GCS 15, non-toxic Head: normocephalic Eyes: bilateral eye normal inspection, bilateral eye PERRL ENT: hearing grossly normal, normal pharynx, no angioedema, normal voice, other - lower lip swelling Neck: full range of motion, supple/symm/no masses Respiratory: chest non-tender, lungs clear, normal breath sounds, speaking full sentences Cardiovascular #1: normal inspection Gastrointestinal: normal inspection Rectal: deferred Genitourinary: no CVA tenderness Musculoskeletal: normal inspection Neurologic: alert, oriented x3, responsive, motor strength/tone normal, sensory intact, speech normal Psychiatric: normal inspection Skin: no rash Lymphatic: normal inspection Medical Decision Making Diagnostic Impression: Primary Impression: Lip swelling ER Course Hospital Course 37-year-old female presents ED complaining of swelling to the lower lip Differential diagnoses include: Cellulitis, allergic reaction, insect bite, abscess Clinical course Patient placed on stretcher. After initial history, physical exam reveals a female in no acute distress. On exam there is noticeable swelling to the lower lip. No fluctuance or discharge. No erythema or induration. No evidence of urticaria. No stridor or tongue swelling. Etiology to be infectious versus allergic. We will treat both ways Discussed findings with patient. We'll prescribe prednisone, Benadryl, Keflex. Recommend close follow-up with PMD with possible allergy testing Diagnosis - lip swelling stable and discharged to home with prescription for prednisone, Benadryl, Keflex. Instructed to followup with PMD. Instructed return to ED if symptoms recur or worsen Last Vital Signs Date Time Temp Pulse Resp B/P (MAP) Pulse Ox O2 Delivery O2 Flow Rate FiO2 03/02/18 03:22 70 16 101/50 99 Room Air 03/02/18 03:04 97.9 97.9 Status: improved Disposition: HOME, SELF-CARE Condition: Stable Scripts Cephalexin* (KEFLEX*) 500 Mg Capsule 500 MG ORAL EVERY 6 HOURS, #28 CAP Prov: Jose Luis Hough MD 03/02/18 Prednisone* (PREDNISONE*) 20 Mg Tablet 40 MG ORAL DAILY, #10 TAB Prov: Jose Luis Hough MD 03/02/18 Diphenhydramine Hcl* (DIPHENHYDRAMINE HCL*) 25 Mg Capsule 25 MG ORAL Q6H PRN for Itching, #30 CAP 0 Refills Prov: Jose Luis Hough MD 03/02/18 Referrals: NON PHYSICIAN (PCP) Patient Instructions: Food Allergy, [id number] Jose Luis Hough MD Mar 02, 2018 05:43
== END 2018-03-02 03:22 | disposition home or self-care (01) ==
LOC: EMR 03:20
DX: R22.0 Localized swelling, mass and lump, head (principal)
CPT/HCPCS: 99284

== ENCOUNTER 2018-04-08 21:59 | Emergency (ER) | payer MEDICAID ==
[~2018-04-08] VITALS: Ht 170.2 cm; Wt 59.4 kg
[~2018-04-08 21:59] MED LIST changes: +DIPHENHYDRAMINE25 M1 ORAL; +HYDROCODON-ACE1 EA15 ORAL; +MUPIROCIN22 GM TOPIC; +PREDNISONE20 MG ORAL
[2018-04-08 22:18] VITALS: BP 97/62
[2018-04-08] MEDS ORDERED: Sodium Chloride 500ML 500 ML IV ONE (22:36)
[2018-04-08 23:12] LABS: HEMATOCRIT 43.6 % (37.0-47.0); HEMOGLOBIN 14.3 G/DL (12.0-16.0); MEAN CORPUSCULAR VOLUME 88 FL (80-99); PLATELET COUNT 177 K/UL (150-450); RED BLOOD COUNT 4.93 M/UL (4.20-5.40); RED CELL DISTRIBUTION WIDTH 11.3 % (11.6-14.8); WHITE BLOOD COUNT 4.3 K/UL (4.8-10.8)
[2018-04-08 23:13] LABS: APPEARANCE,URINE CLEAR; BILIRUBIN, URINE NEGATIVE (NEGATIVE); COLOR,URINE PALE YELLOW; GLUCOSE, URINE (UA) NEGATIVE (NEGATIVE); KETONES,URINE NEGATIVE (NEGATIVE); LEUKOCYTE ESTERASE ,URINE NEGATIVE (NEGATIVE); NITRITE,URINE NEGATIVE (NEGATIVE); PH,URINE 7 (4.5-8.0); PROTEIN,URINE NEGATIVE (NEGATIVE); UROBILINOGEN,URINE 1 MG/DL (0.0-1.0)
[2018-04-08 23:18] LABS: ANION GAP 6 mmol/L (5-15); BLOOD UREA NITROGEN 17 mg/dL (7-18); CALCIUM 9.7 MG/DL (8.5-10.1); CARBON DIOXIDE 29 MMOL/L (21-32); CHLORIDE 103 MMOL/L (98-107); CREATININE 1.1 MG/DL (0.55-1.30); POTASSIUM 4.4 MMOL/L (3.5-5.1); SODIUM 138 MMOL/L (136-145)
[2018-04-08 23:22] LABS: ALANINE AMINOTRANSFERASE 23 U/L (12-78); ALBUMIN 4.2 G/DL (3.4-5.0); ALKALINE PHOSPHATASE 68 U/L (46-116); ASPARTATE AMINO TRANSFERASE 17 U/L (15-37); BILIRUBIN,TOTAL 0.7 MG/DL (0.2-1.0)
[2018-04-08 23:51] VITALS: BP 0/0
--- NOTE | 2018-04-09 01:36 | Emergency Room Report ---
History of Present Illness General Chief Complaint: Nausea Source: Patient Present Illness HPI 37-year-old female presents ED for evaluation. States that on 04/05 she was here and had I and D of abscess behind her ear. Was discharged on Bactrim. States that she felt "not right" after taking the Bactrim and called ER. Prescription was changed to a different antibiotic. Patient states that she did not start the new antibiotic yet. States that she did stop the Bactrim but still does not feel well. Feels weak. Notes nausea, denies vomiting. Denies diarrhea. Denies any fevers or chills. No other aggravating or relieving factors. Denies any other associated symptoms Allergies: Coded Allergies: No Known Allergies (Unverified , 08/20/14) Patient History Past Medical History: none Past Surgical History: none Pertinent Family History: none Social History: Denies: smoking, alcohol use, drug use Last Menstrual Period: 04/02/18 Now: No Immunizations: UTD Reviewed Nursing Documentation: PMH: Agreed; PSxH: Agreed Nursing Documentation-PMH Past Medical History: No Stated History Hx Cardiac Problems: No Hx Hypertension: No Hx Pacemaker: No Hx Asthma: No Hx COPD: No Hx Diabetes: No Hx Cancer: No Hx Gastrointestinal Problems: No Hx Dialysis: No Hx Neurological Problems: No Hx Cerebrovascular Accident: No Hx Seizures: No Review of Systems All Other Systems: negative except mentioned in HPI Physical Exam Vital Signs Date Time Temp Pulse Resp B/P (MAP) Pulse Ox O2 Delivery O2 Flow Rate FiO2 04/08/18 22:07 98.2 61 18 97/62 96 Room Air 98.2 Sp02 EP Interpretation: reviewed, normal General Appearance: no apparent distress, alert, GCS 15, non-toxic Head: normocephalic, atraumatic Eyes: bilateral eye normal inspection, bilateral eye PERRL ENT: hearing grossly normal, normal pharynx, no angioedema, normal voice Neck: full range of motion, supple/symm/no masses Respiratory: chest non-tender, lungs clear, normal breath sounds, speaking full sentences Cardiovascular #1: regular rate, rhythm, no edema Cardiovascular #2: 2+ carotid (R), 2+ carotid (L), 2+ radial (R), 2+ radial (L) , 2+ dorsalis pedis (R), 2+ dorsalis pedis (L) Gastrointestinal: normal bowel sounds, non tender, soft, non-distended, no guarding, no rebound Rectal: deferred Genitourinary: normal inspection, no CVA tenderness Musculoskeletal: back normal, gait/station normal, normal range of motion, non- tender Neurologic: alert, oriented x3, responsive, motor strength/tone normal, sensory intact, speech normal Psychiatric: judgement/insight normal, memory normal, mood/affect normal, no suicidal/homicidal ideation Reflexes: 3+ bicep (R), 3+ bicep (L), 3+ tricep (R), 3+ tricep (L), 3+ knee (R) , 3+ knee (L) Skin: normal color, no rash, warm/dry, well hydrated Lymphatic: no adenopathy Medical Decision Making Diagnostic Impression: Primary Impression: Generalized weakness ER Course Hospital Course 37-year-old female presents ED complaining of weakness, nausea after taking Bactrim differential diagnosis: gastritis, gastroenteritis, dehdration, UTI Clinical course Patient placed on stretcher. On cardiac rn. After initial history and physical I ordered labs, IV fluids, Zofran Labs - no leukocytosis, electrolytes ok, UA unremarkable On reassessment patient states she feels better. Patient safe for discharge pending close outpatient follow-up. I encouraged patient to start the new abx Rx I feel this is a highly complex case requiring extensive working including EKG/ Rhythm strip, Xray/CT/US, Blood/urine lab work, repeat exams while in ED, and administration of strong opiates/narcotics for pain control, admission to hospital or close patient follow up. Diagnosis - generalized weakness Stable and discharged to home. Followup with PMD. Return to ED if symptoms recur or worsen Labs Test 04/08/18 22:45 04/08/18 22:50 Urine Color Pale yellow Urine Appearance Clear Urine pH 7 (4.5-8.0) Urine Specific [place] 1.015 (1.005-1.035) Urine Protein Negative (NEGATIVE) Urine Glucose (UA) Negative (NEGATIVE) Urine Ketones Negative (NEGATIVE) Urine Occult Blood Negative (NEGATIVE) Urine Nitrite Negative (NEGATIVE) Urine Bilirubin Negative (NEGATIVE) Urine Urobilinogen 1 MG/DL (0.0-1.0) Urine Leukocyte Esterase Negative (NEGATIVE) Urine HCG, Qualitative Negative (NEGATIVE) White Blood Count 4.3 K/UL (4.8-10.8) Red Blood Count 4.93 M/UL (4.20-5.40) Hemoglobin 14.3 G/DL (12.0-16.0) Hematocrit 43.6 % (37.0-47.0) Mean Corpuscular Volume 88 FL (80-99) Mean Corpuscular Hemoglobin 29.0 PG (27.0-31.0) Mean Corpuscular Hemoglobin Concent 32.9 G/DL (32.0-36.0) Red Cell Distribution Width 11.3 % (11.6-14.8) Platelet Count 177 K/UL (150-450) Mean Platelet Volume 9.5 FL (6.5-10.1) Neutrophils (%) (Auto) % (45.0-75.0) Lymphocytes (%) (Auto) % (20.0-45.0) Monocytes (%) (Auto) % (1.0-10.0) Eosinophils (%) (Auto) % (0.0-3.0) Basophils (%) (Auto) % (0.0-2.0) Sodium Level 138 MMOL/L (136-145) Potassium Level 4.4 MMOL/L (3.5-5.1) Chloride Level 103 MMOL/L (98-107) Carbon Dioxide Level 29 MMOL/L (21-32) Anion Gap 6 mmol/L (5-15) Blood Urea Nitrogen 17 mg/dL (7-18) Creatinine 1.1 MG/DL (0.55-1.30) Estimat Glomerular Filtration Rate > 60 mL/min (>60) Glucose Level 90 MG/DL (74-106) Calcium Level 9.7 MG/DL (8.5-10.1) Total Bilirubin 0.7 MG/DL (0.2-1.0) Aspartate Amino Transf (AST/SGOT) 17 U/L (15-37) Alanine Aminotransferase (ALT/SGPT) 23 U/L (12-78) Alkaline Phosphatase 68 U/L (46-116) Total Protein 8.3 G/DL (6.4-8.2) Albumin 4.2 G/DL (3.4-5.0) Globulin 4.1 g/dL Albumin/Globulin Ratio 1.0 (1.0-2.7) Last Vital Signs Date Time Temp Pulse Resp B/P (MAP) Pulse Ox O2 Delivery O2 Flow Rate FiO2 04/08/18 23:51 0/0 04/08/18 22:18 98.2 61 18 96 Room Air 98.2 Status: improved Disposition: HOME, SELF-CARE Condition: Stable Referrals: NON PHYSICIAN (PCP) Patient Instructions: Dehydration, Adult Additional Instructions: continue antibiotics as prescribed. f/u PMD Jose Luis Hough MD Apr 09, 2018 01:35
== END 2018-04-08 23:51 | disposition home or self-care (01) ==
LOC: EMR 22:23
DX: R53.1 Weakness (principal); R11.0 Nausea
CPT/HCPCS: 36415; 80053; 81003; 81025; 85025; 96361; 96374; 99283; J2405; J7040

== ENCOUNTER 2018-06-01 07:05 | Emergency (ER) | payer MEDICAID ==
[~2018-06-01] VITALS: Ht 170.2 cm; Wt 59.0 kg
[2018-06-01 07:17] VITALS: BP 108/64
--- NOTE | 2018-06-01 07:40 | Emergency Room Report ---
History of Present Illness General Chief Complaint: Skin Rash/Abscess Source: Patient Present Illness HPI Patient presents with complaints of tingling and pain sensation to the right inner thigh area, patient feels that there is some association with the Labora major on that side, however cannot feel any palpable masses Denies any fevers or chills denies any chest pain or shortness of breath Denies any abdominal pain denies any problems with rectal bleeding or rectal pain Denies any vaginal discharge denies any foul smell Allergies: Coded Allergies: No Known Allergies (Unverified , 08/20/14) Patient History Past Medical History: see triage record Pertinent Family History: none Last Menstrual Period: 05/23/2018 Reviewed Nursing Documentation: PMH: Agreed; PSxH: Agreed Nursing Documentation-PMH Past Medical History: No Stated History Hx Cardiac Problems: No Hx Hypertension: No Hx Pacemaker: No Hx Asthma: No Hx COPD: No Hx Diabetes: No Hx Cancer: No Hx Gastrointestinal Problems: No Hx Dialysis: No Hx Neurological Problems: No Hx Cerebrovascular Accident: No Hx Seizures: No Review of Systems All Other Systems: negative except mentioned in HPI Physical Exam Vital Signs Date Time Temp Pulse Resp B/P (MAP) Pulse Ox O2 Delivery O2 Flow Rate FiO2 06/01/18 07:07 97.9 69 17 108/64 97 Room Air 97.9 Sp02 EP Interpretation: reviewed, normal General Appearance: well appearing, no apparent distress Head: normocephalic, atraumatic Eyes: bilateral eye PERRL, bilateral eye EOMI ENT: hearing grossly normal, normal pharynx Neck: supple Respiratory: lungs clear Cardiovascular #1: regular rate, rhythm Gastrointestinal: non tender, soft Genitourinary: other - Exam with female nurse in the room, does not reveal any obvious palpable masses, patient subjectively feels some discomfort in the lower aspect of the labora major was some tingling sensation to that side of the thigh but no obvious erythema Musculoskeletal: normal inspection Neurologic: alert, oriented x3, responsive, tunnel heading supervisor III-XII nml as tested Psychiatric: mood/affect normal Skin: normal color Lymphatic: no adenopathy Medical Decision Making Diagnostic Impression: Primary Impression: Bartholin cyst ER Course Given the patient's history exam and presentation Questionable early ductal blockage (Bartholin cyst) is considered patient is somewhat tender on palpation No obvious fluctuance is palpated However given the patient's initial discomfort she will be placed on initial antibiotics Warm soaking And conservative initial outpatient trial and close outpatient follow-up Last Vital Signs Date Time Temp Pulse Resp B/P (MAP) Pulse Ox O2 Delivery O2 Flow Rate FiO2 06/01/18 07:17 97.9 17 108/64 97 Room Air 97.9 06/01/18 07:07 69 Status: unchanged Disposition: HOME, SELF-CARE Condition: Stable Scripts Ibuprofen* (MOTRIN*) 600 Mg Tablet 600 MG ORAL Q8H PRN for For Pain, #20 TAB 0 Refills Prov: Nathaniel Lee DO 06/01/18 Trimethoprim/Sulfamethoxazole 160/800* (BACTRIM DS TABLET*) 1 Each Tablet 1 TAB ORAL Q12H, #10 TAB 0 Refills Prov: Nathaniel Lee DO 06/01/18 Referrals: [facility],REFERRING (PCP) Additional Instructions: Patient is provided with the discharge instructions notified to follow up with primary doctor in the next 2-3 days otherwise return to the er with any worsening symptoms. Please note that this report is being documented using [employer] technology. This can lead to erroneous entry secondary to incorrect interpretation by the dictating instrument. Nathaniel Lee DO Jun 01, 2018 07:40
[2018-06-01] MEDS ORDERED: BACTRIM DS TAB1 EAC1 ORAL (07:42)
[2018-06-01] MEDS ORDERED: IBUPROFEN600 MG ORAL (07:45)
[2018-06-01 07:50] VITALS: BP 108/64
[2018-06-01] MEDS ORDERED: METRONIDAZOLE500 MG ORAL (09:58)
== END 2018-06-01 07:50 | disposition home or self-care (01) ==
LOC: EMR 07:21
DX: N75.0 Cyst of Bartholin's gland (principal)
CPT/HCPCS: 99283

== ENCOUNTER 2018-06-16 12:22 | Emergency (ER) | payer MEDICAID ==
[~2018-06-16] VITALS: Ht 170.2 cm; Wt 59.0 kg
[~2018-06-16 12:22] MED LIST changes: +METRONIDAZOLE500 MG ORAL
[2018-06-16] MEDS ORDERED: Metoclopramide 10mg/2ml Inj IVP ONE (13:15)
[2018-06-16] MEDS ORDERED: Acetaminophen 500mg (ES) tab ORAL ONE (13:15)
[2018-06-16] MEDS ORDERED: DiphenhydrAMINE 25mg/10ml Elixir ORAL ONE (13:15)
[2018-06-16 13:25] VITALS: BP 115/59
[2018-06-16 14:52] LABS: HEMATOCRIT 38.1 % (37.0-47.0); HEMOGLOBIN 12.9 G/DL (12.0-16.0); MEAN CORPUSCULAR VOLUME 88 FL (80-99); PLATELET COUNT 153 K/UL (150-450); RED BLOOD COUNT 4.35 M/UL (4.20-5.40); RED CELL DISTRIBUTION WIDTH 11.4 % (11.6-14.8); WHITE BLOOD COUNT 3.8 K/UL (4.8-10.8)
[2018-06-16 14:55] LABS: APPEARANCE,URINE CLEAR; BILIRUBIN, URINE NEGATIVE (NEGATIVE); COLOR,URINE PALE YELLOW; GLUCOSE, URINE (UA) NEGATIVE (NEGATIVE); KETONES,URINE NEGATIVE (NEGATIVE); LEUKOCYTE ESTERASE ,URINE 1+ (NEGATIVE); NITRITE,URINE NEGATIVE (NEGATIVE); PH,URINE 6 (4.5-8.0); PROTEIN,URINE NEGATIVE (NEGATIVE); UROBILINOGEN,URINE NORMAL MG/DL (0.0-1.0)
[2018-06-16 15:11] LABS: INR 1.1 (0.9-1.1)
[2018-06-16 15:23] LABS: ANION GAP 5 mmol/L (5-15); BLOOD UREA NITROGEN 11 mg/dL (7-18); CALCIUM 10.2 MG/DL (8.5-10.1); CARBON DIOXIDE 29 MMOL/L (21-32); CHLORIDE 105 MMOL/L (98-107); CREATININE 0.7 MG/DL (0.55-1.30); SODIUM 139 MMOL/L (136-145)
[2018-06-16 15:31] LABS: ALANINE AMINOTRANSFERASE 19 U/L (12-78); ALBUMIN 3.7 G/DL (3.4-5.0); ALBUMIN/GLOBULIN RATIO 1.1 (1.0-2.7); ALKALINE PHOSPHATASE 57 U/L (46-116); ASPARTATE AMINO TRANSFERASE 12 U/L (15-37); BILIRUBIN,TOTAL 0.7 MG/DL (0.2-1.0)
[2018-06-16] MEDS ORDERED: REGLAN10 MG ORAL ×2 (16:19→16:42)
[2018-06-16] MEDS ORDERED: EXCEDRIN MIGRA1 EACH PO ×2 (16:19→16:42)
--- NOTE | 2018-06-16 16:29 | Emergency Room Report ---
History of Present Illness General Chief Complaint: General Complaint Source: Patient (Pj Meadows) Present Illness HPI 37-year-old female patient since ER complaining of right-sided headache for the past few days. Reports a history of migraine in the past. Reports headache has been present for the past several months. Reports extremely stressed out due to family problems regarding sediment of her grandmother's affairs. reports new onset numbness on the right side of her face for the past few days. Reports tooth pain during this time. Reports she thinks she is "grinding" her teeth. Denies history of stroke or GA. Denies chest pain, shortness of breath , fever. Also complaining of right shoulder pain during this time. Reports had imaging done in the past of her head, states was negative at that time. denies recent injury or trauma. (Pj Meadows) HPI 37-year-old female presents emergency department with complaint of paresthesias and headache with right-sided symptoms. This patient was initially evaluated by wes PA. Please see his note for physical exam as well as more detailed history of present illness and ROS. (Ligia Junior) Allergies: Coded Allergies: SULFA (SULFONAMIDE ANTIBIOTICS) (Verified Allergy, Severe, 06/16/18) n/v Patient History Past Medical History: see triage record Last Menstrual Period: now Now: No Reviewed Nursing Documentation: PMH: Agreed; PSxH: Agreed (Pj Meadows) Past Medical History: see triage record Past Surgical History: none Pertinent Family History: none Reviewed Nursing Documentation: PMH: Agreed; PSxH: Agreed (Ligia Junior) Nursing Documentation-PM Past Medical History: No Stated History Hx Cardiac Problems: No Hx Hypertension: No Hx Pacemaker: No Hx Asthma: No Hx COPD: No Hx Diabetes: No Hx Cancer: No Hx Gastrointestinal Problems: No Hx Dialysis: No Hx Neurological Problems: No Hx Cerebrovascular Accident: No Hx Seizures: No (Pj Meadows) Review of Systems All Other Systems: negative except mentioned in HPI (Pj Meadows) All Other Systems: negative except mentioned in HPI (Ligia Junior) Physical Exam Vital Signs Date Time Temp Pulse Resp B/P (MAP) Pulse Ox O2 Delivery O2 Flow Rate FiO2 10/1/18 12:51 98.2 64 18 115/59 98 Room Air 98.2 Sp02 EP Interpretation: reviewed, normal General Appearance: well appearing, no apparent distress, alert, GCS 15, non- toxic Head: normocephalic, atraumatic, other - no maxillary or frontal sinus tenderness to palpation bilaterally, no tenderness to palpation over temporal region Eyes: bilateral eye normal inspection, bilateral eye PERRL ENT: hearing grossly normal, normal pharynx, no angioedema, normal voice, TMs + canals normal, uvula midline, moist mucus membranes, other - no erythema or edema of bilateral of gums Neck: full range of motion Respiratory: lungs clear, normal breath sounds, no rhonchi, no respiratory distress, no accessory muscle use, no wheezing, speaking full sentences Cardiovascular #1: regular rate, rhythm, no edema Gastrointestinal: non tender, soft, no mass, non-distended, no guarding, no rebound Genitourinary: no CVA tenderness Musculoskeletal: back normal, digits/nails normal, gait/station normal, normal range of motion, non-tender, other - NVI Neurologic: alert, oriented x3, responsive, scoop driver III-XII nml as tested, motor strength/tone normal, sensory intact, cerebellar normal, normal gait, speech normal Psychiatric: mood/affect normal Skin: no rash Lymphatic: no adenopathy (Pj Meadows P.AJenn) Medical Decision Making PA Attestation Dr. Powell is my supervising Physician whom patient management has been discussed with. (Pj Meadows.AJenn) PA Attestation Dr. Powell is my supervising Physician whom patient management has been discussed with. (Ligia Junoir) Diagnostic Impression: Primary Impression: Paresthesias Additional Impression: Headache Qualified Codes: R51 - Headache ER Course Pt. presents to the ED c/o headache, right-sided facial numbness and right shoulder numbness and pain. Ddx considered but are not limited to migraine headache, tension headache, cluster headache, tooth infection, temporal arteritis, trigeminal neuralgia, otitis media, cerebrovascular event, stress. CT hadn't rule out underlying pathology. Vital signs: are WNL, pt. is afebrile ER COURSE: ordered labs and head CT. physical exam benign, cranial nerves intact recess, no focal neuro deficits. patient initially stated she did not want have labs or workup done, stated patient would need to sign out AMA, patient states she will stay and wait to have labs and imaging done. Provided patient with medication for migraine, Reglan, Benadryl, Tylenol. patient reports feeling better following administration of migraine medication. patient labs and imaging pending. Patient signed out to Ligia Junior PAC. - Please note that this Emergency Department Report was dictated using [employer] wiper technology software, occasionally this can lead to erroneous entry secondary to interpretation by the dictation equipment. Labs Test 06/16/18 14:38 White Blood Count 3.8 K/UL (4.8-10.8) Red Blood Count 4.35 M/UL (4.20-5.40) Hemoglobin 12.9 G/DL (12.0-16.0) Hematocrit 38.1 % (37.0-47.0) Mean Corpuscular Volume 88 FL (80-99) Mean Corpuscular Hemoglobin 29.5 PG (27.0-31.0) Mean Corpuscular Hemoglobin Concent 33.8 G/DL (32.0-36.0) Red Cell Distribution Width 11.4 % (11.6-14.8) Platelet Count 153 K/UL (150-450) Mean Platelet Volume 8.7 FL (6.5-10.1) Neutrophils (%) (Auto) % (45.0-75.0) Lymphocytes (%) (Auto) % (20.0-45.0) Monocytes (%) (Auto) % (1.0-10.0) Eosinophils (%) (Auto) % (0.0-3.0) Basophils (%) (Auto) % (0.0-2.0) Differential Total Cells Counted 100 Neutrophils % (Manual) 25 % (45-75) Lymphocytes % (Manual) 65 % (20-45) Monocytes % (Manual) 4 % (1-10) Eosinophils % (Manual) 5 % (0-3) Basophils % (Manual) 1 % (0-2) Band Neutrophils 0 % (0-8) Platelet Estimate Decreased Platelet Morphology Normal Polychromasia 1+ Anisocytosis 1+ Erythrocyte Sedimentation Rate 2 MM/HR (0-20) Prothrombin Time 11.5 SEC (9.30-11.50) Prothromb Time International Ratio 1.1 (0.9-1.1) Activated Partial Thromboplast Time 30 SEC (23-33) Urine Color Pale yellow Urine Appearance Clear Urine pH 6 (4.5-8.0) Urine Specific [place] 1.020 (1.005-1.035) Urine Protein Negative (NEGATIVE) Urine Glucose (UA) Negative (NEGATIVE) Urine Ketones Negative (NEGATIVE) Urine Blood 5+ (NEGATIVE) Urine Nitrite Negative (NEGATIVE) Urine Bilirubin Negative (NEGATIVE) Urine Urobilinogen Normal MG/DL (0.0-1.0) Urine Leukocyte Esterase 1+ (NEGATIVE) Urine RBC 40-60 /HPF (0 - 2) Urine WBC 2-4 /HPF (0 - 2) Urine Squamous Epithelial Cells Occasional /LPF Urine Bacteria Few /HPF (NONE) Urine HCG, Qualitative Negative (NEGATIVE) Sodium Level 139 MMOL/L (136-145) Potassium Level 4.0 MMOL/L (3.5-5.1) Chloride Level 105 MMOL/L (98-107) Carbon Dioxide Level 29 MMOL/L (21-32) Anion Gap 5 mmol/L (5-15) Blood Urea Nitrogen 11 mg/dL (7-18) Creatinine 0.7 MG/DL (0.55-1.30) Estimat Glomerular Filtration Rate > 60 mL/min (>60) Glucose Level 89 MG/DL (74-106) Calcium Level 10.2 MG/DL (8.5-10.1) Total Bilirubin 0.7 MG/DL (0.2-1.0) Aspartate Amino Transf (AST/SGOT) 12 U/L (15-37) Alanine Aminotransferase (ALT/SGPT) 19 U/L (12-78) Alkaline Phosphatase 57 U/L (46-116) Total Protein 7.2 G/DL (6.4-8.2) Albumin 3.7 G/DL (3.4-5.0) Globulin 3.5 g/dL Albumin/Globulin Ratio 1.1 (1.0-2.7) (Pj Meadows P.A.) ER Course This patient was signed out to me pending lab results as well as CT imaging. - EKG: is Bradycardic with normal sinus rhythm. - I reviewed old EKG which was similar/ bradycardic as well. Basic lab work was unremarkable. CT head no contrast was unremarkable as well per official radiology report please see report for further details. -D/w this pt. Neurological as well as cardiology follow up. - -I do not identify an emergent condition at this time. With current presentation, pt. is stable for close outpatient follow up and conservative treatment. D/w pt. to return promptly to ED with worsening or new symptoms.- Pt. verbalizes understanding and agreement with proposed treatment plan.proposed treatment plan. Labs Test 06/16/18 14:38 White Blood Count 3.8 K/UL (4.8-10.8) Red Blood Count 4.35 M/UL (4.20-5.40) Hemoglobin 12.9 G/DL (12.0-16.0) Hematocrit 38.1 % (37.0-47.0) Mean Corpuscular Volume 88 FL (80-99) Mean Corpuscular Hemoglobin 29.5 PG (27.0-31.0) Mean Corpuscular Hemoglobin Concent 33.8 G/DL (32.0-36.0) Red Cell Distribution Width 11.4 % (11.6-14.8) Platelet Count 153 K/UL (150-450) Mean Platelet Volume 8.7 FL (6.5-10.1) Neutrophils (%) (Auto) % (45.0-75.0) Lymphocytes (%) (Auto) % (20.0-45.0) Monocytes (%) (Auto) % (1.0-10.0) Eosinophils (%) (Auto) % (0.0-3.0) Basophils (%) (Auto) % (0.0-2.0) Differential Total Cells Counted 100 Neutrophils % (Manual) 25 % (45-75) Lymphocytes % (Manual) 65 % (20-45) Monocytes % (Manual) 4 % (1-10) Eosinophils % (Manual) 5 % (0-3) Basophils % (Manual) 1 % (0-2) Band Neutrophils 0 % (0-8) Platelet Estimate Decreased Platelet Morphology Normal Polychromasia 1+ Anisocytosis 1+ Erythrocyte Sedimentation Rate 2 MM/HR (0-20) Prothrombin Time 11.5 SEC (9.30-11.50) Prothromb Time International Ratio 1.1 (0.9-1.1) Activated Partial Thromboplast Time 30 SEC (23-33) Urine Color Pale yellow Urine Appearance Clear Urine pH 6 (4.5-8.0) Urine Specific [place] 1.020 (1.005-1.035) Urine Protein Negative (NEGATIVE) Urine Glucose (UA) Negative (NEGATIVE) Urine Ketones Negative (NEGATIVE) Urine Blood 5+ (NEGATIVE) Urine Nitrite Negative (NEGATIVE) Urine Bilirubin Negative (NEGATIVE) Urine Urobilinogen Normal MG/DL (0.0-1.0) Urine Leukocyte Esterase 1+ (NEGATIVE) Urine RBC 40-60 /HPF (0 - 2) Urine WBC 2-4 /HPF (0 - 2) Urine Squamous Epithelial Cells Occasional /LPF Urine Bacteria Few /HPF (NONE) Urine HCG, Qualitative Negative (NEGATIVE) Sodium Level 139 MMOL/L (136-145) Potassium Level 4.0 MMOL/L (3.5-5.1) Chloride Level 105 MMOL/L (98-107) Carbon Dioxide Level 29 MMOL/L (21-32) Anion Gap 5 mmol/L (5-15) Blood Urea Nitrogen 11 mg/dL (7-18) Creatinine 0.7 MG/DL (0.55-1.30) Estimat Glomerular Filtration Rate > 60 mL/min (>60) Glucose Level 89 MG/DL (74-106) Calcium Level 10.2 MG/DL (8.5-10.1) Total Bilirubin 0.7 MG/DL (0.2-1.0) Aspartate Amino Transf (AST/SGOT) 12 U/L (15-37) Alanine Aminotransferase (ALT/SGPT) 19 U/L (12-78) Alkaline Phosphatase 57 U/L (46-116) Total Protein 7.2 G/DL (6.4-8.2) Albumin 3.7 G/DL (3.4-5.0) Globulin 3.5 g/dL Albumin/Globulin Ratio 1.1 (1.0-2.7) (Ligia Junior) EKG Diagnostic Results Rate: bradycardiac Rhythm: NSR ST Segments: no acute changes ASA given to the pt in ED: No PA Scribe Text Russell Meadows PA-C (Pj Meadows PJennAJenn) EP Interpretation: Dr. Powell Rate: bradycardiac - 83 bpm Rhythm: NSR ST Segments: no acute changes ASA given to the pt in ED: No PA Scribe Text This Interpretation was scribed by LORENE Junior. (Ligia Junior) Rhythm Strip Diag. Results EP Interpretation: yes Rate: 53 Rhythm: NSR, no PVC's, no ectopy LORENE Scribe Text Russell Meadows PA-C (Pj Meadows) CT/MRI/US Diagnostic Results CT/MRI/US Diagnostic Results : Imaging Test Ordered: CT Head No-Contrast Impression "No evidence of acute fracture, hemorrhage, or intracranial process." Per official radiology report- Please see report for specific details. (Ligia Junior) Last Vital Signs Date Time Temp Pulse Resp B/P (MAP) Pulse Ox O2 Delivery O2 Flow Rate FiO2 06/16/18 15:04 98.2 06/16/18 13:25 18 115/59 98 Room Air 06/16/18 12:51 64 (Pj Meadows) Status: improved (Ligia Junior) Disposition: HOME, SELF-CARE Condition: Stable Scripts Aspirin/Acetaminophen/Caffeine (EXCEDRIN MIGRAINE GELTAB) 1 Each Tablet 1 EACH PO Q6HR, #20 TAB Prov: Ligia Junior 06/16/18 Metoclopramide Hcl* (REGLAN*) 10 Mg Tablet 10 MG ORAL THREE TIMES A DAY, #15 TAB Prov: Ligia Junior 06/16/18 Referrals: NOT CHOSEN IPA/MD,REFERRING (PCP) Patient Instructions: Bradycardia, Migraine Headache, [id number], Paresthesia , [id number] Additional Instructions: Take medications as directed. Follow up with a Primary Care Provider in 3-5 days For a referral to have NEUROLOGIST Evaluation, even if your symptoms have resolved. Also Recommend CARDIOLOGY. --Please review list of primary care clinics, if you do not already have a primary care provider Return sooner to ED if new symptoms occur, or current symptoms become worse. - Please note that this Emergency Department Report was dictated using [employer] w[employer] technology software, occasionally this can lead to erroneous entry secondary to interpretation by the dictation equipment. Pj Meadows Jun 16, 2018 16:29 Ligia Junior Jun 16, 2018 21:51
--- NOTE | 2018-06-16 16:40 | Diagnostic Imaging Report ---
Indication: Headache for a few days Technique: Continuous helical CT scanning of the head was performed without intravenous contrast material. Axial and coronal 5 mm sections were generated. Radiation dose was minimized using automated exposure control Dose: Total Dose Length Product - DLP 1404.[address] Dose Index - CTDIvol(s) 70.38 mGy. Comparison: 07/30/2017 Findings: The ventricular system is normal in size and configuration. There is no shift of midline structures. No abnormal extra-axial fluid collections are noted. There is no evidence of intracerebral bleeding. No other abnormal high or low density areas are noted within the brain. Normal tinoco-white differentiation. Impression: Normal CT scan of the head without contrast material. The CT scanner at [facility] is accredited by the [employer] and the scans are performed using protocols designed to limit radiation exposure to as low as reasonably achievable to attain images of sufficient resolution adequate for diagnostic evaluation.
[2018-06-16 17:45] VITALS: BP 115/59
--- NOTE | 2018-06-17 19:03 | Cardiology Report ---
APPROVED REPORT EKG Measurement Heart [id number] Sinus bradycardia Otherwise normal ECG
== END 2018-06-16 17:00 | disposition home or self-care (01) ==
LOC: EMR 13:50
DX: R20.2 Paresthesia of skin (principal); R51 Headache; M25.511 Pain in right shoulder; Z88.2 Allergy status to sulfonamides
CPT/HCPCS: 36415; 70450; 80053; 81003; 81025; 85007; 85025; 85610; 85651; 85730; 93005; 99284; J2765

== ENCOUNTER 2018-07-30 21:48 | Emergency (ER) | payer MEDICAID ==
[~2018-07-30] VITALS: Ht 170.2 cm; Wt 61.2 kg
[~2018-07-30 21:48] MED LIST changes: +EXCEDRIN MIGRA1 EACH PO; +REGLAN10 MG ORAL
[2018-07-30 21:50] VITALS: BP 111/60
[2018-07-30 22:40] VITALS: BP 110/58
[2018-07-30] MEDS ORDERED: IBUPROFEN600 MG ORAL (22:51)
--- NOTE | 2018-07-30 22:52 | Emergency Room Report ---
History of Present Illness General Chief Complaint: Chest Pain Source: Patient Present Illness HPI This a 37-year-old female with no past mental history. She presents with chief complaint of chest pain. Onset was almost 24 hours now. She was laying down when she stood up real quickly and she felt pain in her right chest area. Sharp in nature. No radiation. Worse with movement. Worse with palpation. No diaphoresis. No shortness of breath. Pain is 7 out of 10. Allergies: Coded Allergies: SULFA (SULFONAMIDE ANTIBIOTICS) (Verified Allergy, Severe, 06/16/18) n/v Patient History Past Medical History: see triage record, old chart reviewed Past Surgical History: none Pertinent Family History: none Social History: Denies: smoking Last Menstrual Period: 07/26/18 Now: No : 1 Para: 1 Immunizations: other Reviewed Nursing Documentation: PMH: Agreed; PSxH: Agreed Nursing Documentation-PMH Past Medical History: No Stated History Hx Cardiac Problems: No Hx Hypertension: No Hx Pacemaker: No Hx Asthma: No Hx COPD: No Hx Diabetes: No Hx Cancer: No Hx Gastrointestinal Problems: No Hx Dialysis: No Hx Neurological Problems: No Hx Cerebrovascular Accident: No Hx Seizures: No Review of Systems Eye: Denies: eye pain, blurred vision ENT: Denies: ear pain, nose congestion, throat swelling Respiratory: Denies: cough, shortness of breath Cardiovascular: Reports: chest pain; Denies: palpitations Gastrointestinal: Denies: abdominal pain, diarrhea, nausea, vomiting Musculoskeletal: Denies: back pain, joint pain Skin: Denies: rash Neurological: Denies: headache, numbness Endocrine: Denies: increased thirst, increased urine Hematologic/Lymphatic: Denies: easy bruising All Other Systems: negative except mentioned in HPI Physical Exam Vital Signs Date Time Temp Pulse Resp B/P (MAP) Pulse Ox O2 Delivery O2 Flow Rate FiO2 07/30/18 21:51 97.5 63 16 110/58 96 Room Air vitals normal Sp02 EP Interpretation: reviewed, normal General Appearance: well appearing, no apparent distress, alert Head: normocephalic, atraumatic Eyes: bilateral eye PERRL, bilateral eye EOMI ENT: hearing grossly normal, normal pharynx Neck: full range of motion, supple, no meningismus Respiratory: lungs clear, normal breath sounds, other - Reproducible chest pain with palpation Cardiovascular #1: regular rate, rhythm, no murmur Gastrointestinal: normal bowel sounds, non tender, no mass, no organomegaly, no bruit, non-distended Musculoskeletal: back normal, gait/station normal, normal range of motion Psychiatric: mood/affect normal Skin: warm/dry Medical Decision Making Diagnostic Impression: Primary Impression: Strain of chest wall Qualified Codes: S29.011A - Strain of muscle and tendon of front wall of thorax, initial encounter ER Course Patient with muscle strain. No evidence of any ACS, PE, dissection to name a few. EKG normal. We'll discharge home. EKG Diagnostic Results Rate: normal Rhythm: NSR ST Segments: no acute changes Rhythm Strip Diag. Results Rhythm Strip Time: 22:51 EP Interpretation: yes Rate: 66 Rhythm: NSR, no PVC's, no ectopy Last Vital Signs Date Time Temp Pulse Resp B/P (MAP) Pulse Ox O2 Delivery O2 Flow Rate FiO2 07/30/18 21:51 97.5 63 16 110/58 96 Room Air Status: improved Disposition: HOME, SELF-CARE Condition: Stable Scripts Ibuprofen* (MOTRIN*) 600 Mg Tablet 600 MG ORAL THREE TIMES A DAY, #30 TAB 0 Refills Prov: Derek Morgan MD 07/30/18 Additional Instructions: Follow-up with your doctor in 7 days. Return if worse. Derek Morgan MD Jul 30, 2018 22:52
[2018-07-30 22:58] VITALS: BP 111/73
== END 2018-07-30 22:58 | disposition home or self-care (01) ==
LOC: EMR 22:09
DX: S29.011A Strain of muscle and tendon of front wall of thorax, initial encounter (principal); X58.XXXA Exposure to other specified factors, initial encounter; Y92.9 Unspecified place or not applicable
CPT/HCPCS: 99283

== ENCOUNTER 2018-11-26 04:30 | Emergency (ER) | payer MEDICAID ==
[~2018-11-26] VITALS: Ht 170.2 cm; Wt 59.0 kg
[2018-11-26] MEDS ORDERED: NKM (04:38)
[2018-11-26 04:44] VITALS: BP 106/57
--- NOTE | 2018-11-26 04:44 | NUR ---
ED Nurse Note: "Pounding" headache since yesterday. Right thigh pain for one week. pt stating 7/10 pain. ermd on bedside.
[2018-11-26] MEDS ORDERED: IBUPROFEN600 MG ORAL (04:49)
[2018-11-26] MEDS ORDERED: CLARITIN10 M2 ORAL (04:49)
[2018-11-26] MEDS: Dexamethasone 4mg/ml vial IM ONE ×2 (05:15→05:25)
[2018-11-26] MEDS: Ketorolac 60mg Inj IM ONE ×2 (05:16→05:26)
[2018-11-26 05:20] VITALS: BP 106/57
--- NOTE | 2018-11-26 05:20 | NUR ---
ER DISCHARGE NOTE: Patient is cleared to be discharged per ERMD, pt is aox4, on room air, with stable vital signs. pt was given dc and prescription instructions, pt was able to verbalize understanding, pt id band removed without complications. pt is able to ambulate with steady gait. pt took all belongings.
--- NOTE | 2018-11-26 06:29 | Emergency Room Report ---
History of Present Illness General Chief Complaint: Headache Source: Patient Present Illness HPI Patient is a 38-year-old female presented after increased headache as well as nausea. Patient reports having similar headaches in the past. She had associated Nausea. She reports having increased nasal congestion as well as increased nasal bleeding. Allergies: Coded Allergies: SULFA (SULFONAMIDE ANTIBIOTICS) (Verified Allergy, Severe, 06/16/18) n/v Patient History Last Menstrual Period: 11/05/18 Now: No Reviewed Nursing Documentation: PMH: Agreed; PSxH: Agreed Nursing Documentation-PMH Past Medical History: No Stated History Hx Cardiac Problems: No Hx Hypertension: No Hx Pacemaker: No Hx Asthma: No Hx COPD: No Hx Diabetes: No Hx Cancer: No Hx Gastrointestinal Problems: No Hx Dialysis: No Hx Neurological Problems: No Hx Cerebrovascular Accident: No Hx Seizures: No Review of Systems All Other Systems: negative except mentioned in HPI Physical Exam Vital Signs Date Time Temp Pulse Resp B/P (MAP) Pulse Ox O2 Delivery O2 Flow Rate FiO2 11/26/18 04:34 97.9 69 16 106/57 97 Room Air General Appearance: well appearing, no apparent distress, alert, GCS 15 Head: normocephalic, atraumatic ENT: hearing grossly normal, normal pharynx, no angioedema, normal voice, nasal congestion Neck: full range of motion, supple Respiratory: no respiratory distress, speaking full sentences Cardiovascular #1: normal inspection, no edema Gastrointestinal: normal inspection, soft Musculoskeletal: normal inspection, no calf tenderness Neurologic: normal inspection, alert, oriented x3, responsive, normal gait Psychiatric: mood/affect normal Skin: no rash Medical Decision Making Diagnostic Impression: Primary Impression: Upper respiratory infection Labs Test 11/26/18 04:50 Urine HCG, Qualitative Negative (NEGATIVE) Last Vital Signs Date Time Temp Pulse Resp B/P (MAP) Pulse Ox O2 Delivery O2 Flow Rate FiO2 11/26/18 05:20 97.9 69 16 106/57 97 Room Air Status: improved Disposition: HOME, SELF-CARE Condition: Stable Scripts Ibuprofen* (MOTRIN*) 600 Mg Tablet 600 MG ORAL Q8H PRN for For Pain, #30 TAB 0 Refills Prov: Alex Jeff MD 11/26/18 Loratadine (CLARITIN) 10 Mg Capsule 10 MG ORAL DAILY, #20 CAP Prov: Alex Jeff MD 11/26/18 Referrals: NOT CHOSEN IPA/,REFERRING Patient Instructions: Sinus Headache Alex Jeff MD Nov 26, 2018 06:29
== END 2018-11-26 05:20 | disposition home or self-care (01) ==
LOC: EMR 05:01
DX: J06.9 Acute upper respiratory infection, unspecified (principal); R51 Headache
CPT/HCPCS: 81025; 99282

== ENCOUNTER 2018-12-11 01:45 | Emergency (ER) | payer MEDICAID ==
[~2018-12-11] VITALS: Ht 170.2 cm; Wt 59.0 kg
[~2018-12-11 01:45] MED LIST changes: +CLARITIN10 M2 ORAL
--- NOTE | 2018-12-11 02:12 | NUR ---
ED Nurse Note: Patient presents complaints of recurrent migraine. 06/25 pain
[2018-12-11 02:13] VITALS: BP 100/60
--- NOTE | 2018-12-11 02:16 | Emergency Room Report ---
History of Present Illness General Chief Complaint: Headache Source: Patient Present Illness HPI Is a 38-year-old female with history of migraine. She says she been getting more frequently since her new job started. She presents with chief complaint of headache. She wants something stronger than Motrin. Pain is usually throbbing in nature. Diffuse in nature. 8 out of 10. Worse with lights. No fever chills. No nausea no vomiting. Gradual onset. Denies any other complaint. Allergies: Coded Allergies: SULFA (SULFONAMIDE ANTIBIOTICS) (Verified Allergy, Severe, 06/16/18) n/v Patient History Past Medical History: see triage record, old chart reviewed Past Surgical History: other Pertinent Family History: none Social History: Denies: smoking Last Menstrual Period: n/a Now: No Immunizations: other Reviewed Nursing Documentation: PMH: Agreed; PSxH: Agreed Nursing Documentation-PMH Past Medical History: No History, Except For Hx Cardiac Problems: No Hx Hypertension: No Hx Pacemaker: No Hx Asthma: No Hx COPD: No Hx Diabetes: No Hx Cancer: No Hx Gastrointestinal Problems: No Hx Dialysis: No Hx Neurological Problems: No Hx Cerebrovascular Accident: No Hx Seizures: No Review of Systems Eye: Denies: eye pain, blurred vision ENT: Denies: ear pain, nose congestion, throat swelling Respiratory: Denies: cough, shortness of breath Cardiovascular: Denies: chest pain, palpitations Gastrointestinal: Denies: abdominal pain, diarrhea, nausea, vomiting Musculoskeletal: Denies: back pain, joint pain Skin: Denies: rash Neurological: Reports: headache; Denies: numbness Endocrine: Denies: increased thirst, increased urine Hematologic/Lymphatic: Denies: easy bruising All Other Systems: negative except mentioned in HPI Physical Exam Vital Signs Date Time Temp Pulse Resp B/P (MAP) Pulse Ox O2 Delivery O2 Flow Rate FiO2 12/11/18 01:47 97.5 80 18 100/60 96 Room Air vitals normal Sp02 EP Interpretation: reviewed, normal General Appearance: well appearing, no apparent distress, alert Head: normocephalic, atraumatic Eyes: bilateral eye PERRL, bilateral eye EOMI ENT: hearing grossly normal, normal pharynx Neck: full range of motion, supple, no meningismus Respiratory: chest non-tender, lungs clear, normal breath sounds Cardiovascular #1: regular rate, rhythm, no murmur Gastrointestinal: normal bowel sounds, non tender, no mass, no organomegaly, no bruit, non-distended Musculoskeletal: back normal, gait/station normal, normal range of motion Psychiatric: mood/affect normal Skin: warm/dry Medical Decision Making Diagnostic Impression: Primary Impression: Headache Qualified Codes: R51 - Headache ER Course Patient presents with a headache. Could be migrainous in nature. She is walking around without any difficulty. No evidence of TIA, CVA, bleed, meningitis or neoplastic process. We'll discharge home. Last Vital Signs Date Time Temp Pulse Resp B/P (MAP) Pulse Ox O2 Delivery O2 Flow Rate FiO2 12/11/18 01:47 97.5 80 18 100/60 96 Room Air Status: improved Disposition: HOME, SELF-CARE Condition: Stable Scripts Amitriptyline HCl (ELAVIL*) 25 Mg Tablet 25 MG ORAL BEDTIME, #30 TAB Prov: Derek Morgan MD 12/11/18 Sumatriptan Succinate* (IMITREX*) 50 Mg Tablet 50 MG ORAL DAILY PRN MIGRAINE, #20 TAB Prov: Derek Morgan MD 12/11/18 Referrals: NOT CHOSEN [facility]/,REFERRING (PCP) Patient Instructions: Migraine Headache Additional Instructions: Follow-up with your doctor in 7 days. Return if symptom worsen. Derek Morgan MD Dec 11, 2018 02:16
[2018-12-11] MEDS ORDERED: IMITREX50 MG ORAL (02:21)
[2018-12-11] MEDS ORDERED: AMITRIPTYLINE25 MG ORAL (02:21)
[2018-12-11 02:28] VITALS: BP 126/76
--- NOTE | 2018-12-11 02:28 | NUR ---
ED Nurse Note: Patient medication and cleared for discharge, patient A&Ox4, ambulatory with steady gait, verebalized understanding of discharge instructions, departed with all belongings.
== END 2018-12-11 02:28 | disposition home or self-care (01) ==
LOC: EMR 02:10
DX: R51 Headache (principal); Z88.2 Allergy status to sulfonamides
CPT/HCPCS: 99282

== ENCOUNTER 2018-12-17 17:28 | Emergency (ER) | payer MEDICAID ==
[~2018-12-17] VITALS: Ht 170.2 cm; Wt 59.0 kg
[~2018-12-17 17:28] MED LIST changes: +AMITRIPTYLINE25 MG ORAL; +IMITREX50 MG ORAL
--- NOTE | 2018-12-17 17:52 | NUR ---
ED Nurse Note: PT WALKED IN TO ER TODAY FROM HOME. AOX4. PT C/O PAIN, 9/10 UNDER RIGHT BUTTOCK X 4 DAYS AGO. PT STATES SHE HAS HX OF CELLULITIS OF RIGHT LEG AND HAS HAD ANTIBIOTIC TREATMENT FOR IT IN THE PAST. SKIN CLEAN, DRY, AND INTACT. FULL ROM OF EXTREMITY AND GAIT STABLE.
[2018-12-17 17:53] VITALS: BP 114/62
[2018-12-17] MEDS ORDERED: Lidocaine 1% MPF 10mg/ml 5ml INJ ONE (18:15)
--- NOTE | 2018-12-17 18:26 | Emergency Room Report ---
History of Present Illness General Chief Complaint: Pain Source: Patient Present Illness HPI 38-year-old female presents to the emergency department complaining of 6 out of 10 in severity localized pain, warmth, erythema and tenderness to the posterior right thigh 3 days. Patient denies open wounds or rashes she denies fevers or chills she reports she has had symptoms in the past and was prescribed antibiotics which resolved her problem however she states she is unable to take oral antibiotics and prefers IM antibiotics. Significant past medical history denies any aggravating or relieving factors. Allergies: Coded Allergies: SULFA (SULFONAMIDE ANTIBIOTICS) (Verified Allergy, Severe, 06/16/18) n/v Patient History Past Medical History: see triage record Past Surgical History: none Pertinent Family History: none Last Menstrual Period: 2018 Reviewed Nursing Documentation: PMH: Agreed; PSxH: Agreed Nursing Documentation-PMH Hx Cardiac Problems: No Hx Hypertension: No Hx Pacemaker: No Hx Asthma: No Hx COPD: No Hx Diabetes: No Hx Cancer: No Hx Gastrointestinal Problems: No Hx Dialysis: No Hx Neurological Problems: No Hx Cerebrovascular Accident: No Hx Seizures: No Review of Systems All Other Systems: negative except mentioned in HPI Physical Exam Vital Signs Date Time Temp Pulse Resp B/P (MAP) Pulse Ox O2 Delivery O2 Flow Rate FiO2 12/17/18 17:41 98.2 65 19 116/66 100 Room Air Sp02 EP Interpretation: reviewed, normal General Appearance: no apparent distress, alert, GCS 15, non-toxic Head: normocephalic, atraumatic Eyes: bilateral eye normal inspection, bilateral eye PERRL ENT: hearing grossly normal, normal voice Neck: full range of motion Respiratory: chest non-tender, lungs clear, normal breath sounds, speaking full sentences Cardiovascular #1: regular rate, rhythm Musculoskeletal: back normal, gait/station normal, normal range of motion, non- tender Neurologic: alert, oriented x3, responsive, motor strength/tone normal, sensory intact, normal gait, speech normal, grossly normal Psychiatric: judgement/insight normal Skin: no rash, warm/dry, well hydrated, other - area of erythema, warmth, and edema of the skin on the right posterior thigh. Medical Decision Making PA Attestation Dr. conte is my supervising Physician whom patient management has been discussed with. Diagnostic Impression: Primary Impression: Cellulitis of right thigh ER Course 38-year-old female presents to the emergency department complaining of 6 out of 10 in severity localized pain, warmth, erythema and tenderness to the posterior right thigh 3 days. Patient denies open wounds or rashes she denies fevers or chills she reports she has had symptoms in the past and was prescribed antibiotics which resolved her problem however she states she is unable to take oral antibiotics and prefers IM antibiotics. Significant past medical history denies any aggravating or relieving factors. Ddx considered but are not limited to cellulitis, Abscess, Fungal infection, dermatitis, fracture, d/L, gout Vital signs: are WNL, pt. is afebrile H&PE are most consistent with posterior thigh Cellulitis - Right side ORDERS: none required at this time, the diagnosis is clinical ED INTERVENTIONS: Rocephin IM DISCHARGE: At this time pt. is stable for d/c to home. Will provide printed patient care instructions, and any necessary prescriptions. Care plan and follow up instructions have been discussed with the patient prior to discharge. Last Vital Signs Date Time Temp Pulse Resp B/P (MAP) Pulse Ox O2 Delivery O2 Flow Rate FiO2 12/17/18 17:53 98.4 62 17 114/62 99 Room Air Disposition: HOME, SELF-CARE Condition: Stable Scripts Ibuprofen* (MOTRIN*) 600 Mg Tablet 600 MG ORAL THREE TIMES A DAY, #30 TAB 0 Refills Prov: Ligia Junior 12/17/18 Patient Instructions: Cellulitis, [id number] Additional Instructions: Take medications as directed. Follow up with a Primary Care Provider in 3-5 days, even if your symptoms have resolved. --Please review list of primary care clinics, if you do not already have a primary care provider Return sooner to ED if new symptoms occur, or current symptoms become worse. - Please note that this Emergency Department Report was dictated using [employer] packer and shader technology software, occasionally this can lead to erroneous entry secondary to interpretation by the dictation equipment. Ligia Junior Dec 17, 2018 18:26
[2018-12-17] MEDS ORDERED: IBUPROFEN600 MG ORAL (18:27)
[2018-12-17 18:36] VITALS: BP 116/68
--- NOTE | 2018-12-17 18:37 | NUR ---
ED Nurse Note: PT SITTING PEACEFULLY IN BED IN NAD. AOX4. PRESCRIPTIONS AND DISCHARGE PAPERWORK EXPLAINED TO PT. PT VERBALIZES UNDERSTANDING AND ALL QUESTIONS ANSWERED. PRESCRIPTIONS AND DISCHARGE PAPERWORK GIVEN TO PT AND ID WRISTBAND REMOVED. PT WALKED OUT OF ER WITH STEADY GAIT AND ALL BELONGINGS.
[2018-12-18] MEDS ORDERED: NKM (22:03)
[2018-12-18] MEDS ORDERED: CEPHALEXIN500 MG ORAL (22:45)
== END 2018-12-17 18:37 | disposition home or self-care (01) ==
LOC: EMR 18:18
DX: L03.115 Cellulitis of right lower limb (principal); Z88.2 Allergy status to sulfonamides
CPT/HCPCS: 96372; 96374; 99284; J0696

== ENCOUNTER 2018-12-18 21:34 | Emergency (ER) | payer MEDICAID ==
[~2018-12-18] VITALS: Ht 170.2 cm; Wt 59.0 kg
[2018-12-18] MEDS ORDERED: NKM (22:03)
--- NOTE | 2018-12-18 22:06 | NUR ---
ED Nurse Note: Patient presents with complaints of recurrent right hip pain with previous diagnosis of cellulitis.
[2018-12-18 22:16] VITALS: BP 94/48
[2018-12-18] MEDS ORDERED: CEPHALEXIN500 MG ORAL (22:45)
[2018-12-18 22:54] VITALS: BP 94/48
--- NOTE | 2018-12-18 22:54 | NUR ---
ED Nurse Note: Patient discharged in stable condition by ERMD, patient ambulatory with steady gait, A&Ox4, no s/s/ of acute distress, ID band removed, verbalized understanding of discharge instructions.
--- NOTE | 2018-12-18 23:52 | Emergency Room Report ---
History of Present Illness General Chief Complaint: Pain Source: Patient Present Illness HPI Patient presents with reports that she was having ongoing discomfort to the left upper back leg area She reports that she was here recently had injection of antibiotics However has not been placed on any other antibiotics Denies any fevers or chills denies any rash denies any discharge Denies any chest pain or shortness of breath Allergies: Coded Allergies: SULFA (SULFONAMIDE ANTIBIOTICS) (Verified Allergy, Severe, 06/16/18) n/v Patient History Past Medical History: see triage record Pertinent Family History: none Last Menstrual Period: 11/21/2018 Now: No Reviewed Nursing Documentation: PMH: Agreed; PSxH: Agreed Nursing Documentation-PMH Past Medical History: No History, Except For Hx Cardiac Problems: No Hx Hypertension: No Hx Pacemaker: No Hx Asthma: No Hx COPD: No Hx Diabetes: No Hx Cancer: No Hx Gastrointestinal Problems: No Hx Dialysis: No Hx Neurological Problems: No Hx Cerebrovascular Accident: No Hx Seizures: No Review of Systems All Other Systems: negative except mentioned in HPI Physical Exam Vital Signs Date Time Temp Pulse Resp B/P (MAP) Pulse Ox O2 Delivery O2 Flow Rate FiO2 12/18/18 21:59 97.5 69 16 94/48 97 Room Air Sp02 EP Interpretation: reviewed, normal General Appearance: well appearing, no apparent distress Head: normocephalic, atraumatic Eyes: bilateral eye PERRL, bilateral eye EOMI ENT: hearing grossly normal, normal pharynx Neck: supple Respiratory: lungs clear Cardiovascular #1: regular rate, rhythm Gastrointestinal: non tender, soft Musculoskeletal: normal inspection Neurologic: alert, oriented x3 Skin: other - There is a very small folliculitis type appearance left upper thigh, no obvious dermatomal rash or spread no obvious petechiae no other fluctuance or mass palpable Lymphatic: no adenopathy Medical Decision Making Diagnostic Impression: Primary Impression: cellulitis ER Course Patient appears to have fairly simple appearing cellulitis No obvious spread Patient placed on oral antibiotics as well she was provided with IM injection yesterday Requesting pills today and will have close outpatient follow-up Last Vital Signs Date Time Temp Pulse Resp B/P (MAP) Pulse Ox O2 Delivery O2 Flow Rate FiO2 12/18/18 22:54 97.5 79 16 94/48 97 Room Air Status: unchanged Disposition: HOME, SELF-CARE Condition: Stable Scripts Cephalexin* (KEFLEX*) 500 Mg Capsule 500 MG ORAL EVERY 6 HOURS for 7 Days, CAP Prov: Nathaniel Lee DO 12/18/18 Referrals: Laura Castillo [facility] Patient Instructions: Cellulitis, [id number] Additional Instructions: Patient is provided with the discharge instructions notified to follow up with primary doctor in the next 2-3 days otherwise return to the er with any worsening symptoms. Please note that this report is being documented using [employer] technology. This can lead to erroneous entry secondary to incorrect interpretation by the dictating instrument. Nathaniel Lee DO Dec 18, 2018 23:52
== END 2018-12-18 22:54 | disposition home or self-care (01) ==
LOC: EMR 22:30
DX: L03.116 Cellulitis of left lower limb (principal); Z88.2 Allergy status to sulfonamides
CPT/HCPCS: 99282

== ENCOUNTER 2019-04-04 22:28 | Emergency (ER) | payer MEDICAID ==
[~2019-04-04] VITALS: Ht 170.2 cm; Wt 60.8 kg
--- NOTE | 2019-04-04 22:47 | NUR ---
ED Nurse Note: Patient presents with complaints hot flashes, and nigh sweats.
[2019-04-04 22:48] VITALS: BP 11/54
[2019-04-04] MEDS ORDERED: D5 1/2NS w/KCl 20mEq 1,000 ML IV SCH (23:30)
--- NOTE | 2019-04-05 00:05 | NUR ---
ED Nurse Note: Got this patient from [facility] due to hot flushes. AAO x4, VSS at this time skin is warm to touch.
[2019-04-05 00:21] LABS: HEMATOCRIT 41.5 % (37.0-47.0); HEMOGLOBIN 13.6 G/DL (12.0-16.0); MEAN CORPUSCULAR VOLUME 90 FL (80-99); PLATELET COUNT 162 K/UL (150-450); RED BLOOD COUNT 4.63 M/UL (4.20-5.40); RED CELL DISTRIBUTION WIDTH 11.3 % (11.6-14.8); WHITE BLOOD COUNT 4.9 K/UL (4.8-10.8)
[2019-04-05 00:33] LABS: ANION GAP 6 mmol/L (5-15); BLOOD UREA NITROGEN 17 mg/dL (7-18); CALCIUM 10.1 MG/DL (8.5-10.1); CARBON DIOXIDE 29 MMOL/L (21-32); CHLORIDE 106 MMOL/L (98-107); POTASSIUM 3.9 MMOL/L (3.5-5.1); SODIUM 141 MMOL/L (136-145)
[2019-04-05 00:39] LABS: ALANINE AMINOTRANSFERASE 16 U/L (12-78); ALBUMIN 3.7 G/DL (3.4-5.0); ALBUMIN/GLOBULIN RATIO 1.1 (1.0-2.7); ALKALINE PHOSPHATASE 76 U/L (46-116); ASPARTATE AMINO TRANSFERASE 16 U/L (15-37); BILIRUBIN,TOTAL 0.5 MG/DL (0.2-1.0)
[2019-04-05 01:19] VITALS: BP 112/65
[2019-04-05] MEDS ORDERED: OMEPRAZOLE20 M2 ORAL (01:32)
[2019-04-05 01:36] VITALS: BP 112/65
--- NOTE | 2019-04-05 01:37 | NUR ---
ER DISCHARGE NOTE: Patient is cleared to be discharged per ERMD, pt is aox4, on room air, with stable vital signs. pt was given dc and prescription instructions, pt was able to verbalize understanding, pt id band and iv site removed without complications. pt is able to ambulate with steady gait. pt took all belongings.
[2019-04-06] MEDS ORDERED: NKM (16:46)
[2019-04-06] MEDS ORDERED: RANITIDINE HCL150 MG ORAL (18:27)
[2019-04-06] MEDS ORDERED: ONDANSETRON ODT4 MG BC (18:27)
--- NOTE | 2019-04-06 22:03 | Emergency Room Report ---
History of Present Illness General Chief Complaint: General Complaint Source: Patient Present Illness HPI 38-year-old female presented after increased hot flashes. Patient states he has been having increased feelings of hot and cold sensation. She reports having normal menses. She denies any vomiting or diarrhea. She has intermittent episodes of right upper abdominal pain. She states this sometimes radiates to her back. She denies any dysuria or vomiting. She is unsure if she may be . She reports having some prior history of intermittent alcohol use. She denies any weight loss. Allergies: Coded Allergies: SULFA (SULFONAMIDE ANTIBIOTICS) (Verified Allergy, Severe, 06/16/18) n/v Patient History Past Medical History: see triage record Last Menstrual Period: 03/25/19 Now: No : 1 Para: 1 Reviewed Nursing Documentation: PMH: Agreed; PSxH: Agreed Nursing Documentation-PMH Past Medical History: No Stated History Hx Cardiac Problems: No Hx Hypertension: No Hx Pacemaker: No Hx Asthma: No Hx COPD: No Hx Diabetes: No Hx Cancer: No Hx Gastrointestinal Problems: No Hx Dialysis: No Hx Neurological Problems: No Hx Cerebrovascular Accident: No Hx Seizures: No Review of Systems All Other Systems: negative except mentioned in HPI Physical Exam Vital Signs Date Time Temp Pulse Resp B/P (MAP) Pulse Ox O2 Delivery O2 Flow Rate FiO2 04/04/19 22:39 97.7 69 16 11/54 (40) 96 Room Air Sp02 EP Interpretation: reviewed, normal General Appearance: normal inspection, well appearing, no apparent distress, alert, GCS 15 Head: atraumatic ENT: normal ENT inspection, hearing grossly normal, normal voice Neck: normal inspection, full range of motion, supple, no bony tend Respiratory: normal inspection, lungs clear, normal breath sounds, no respiratory distress, no retraction, no wheezing Cardiovascular #1: regular rate, rhythm, no edema Gastrointestinal: normal inspection, normal bowel sounds, non tender, soft, no guarding, no hernia Genitourinary: no CVA tenderness Musculoskeletal: normal inspection, back normal, normal range of motion Neurologic: normal inspection, alert, oriented x3, responsive, food stylist III-XII nml as tested, speech normal Psychiatric: normal inspection, judgement/insight normal, mood/affect normal Skin: normal inspection Medical Decision Making Diagnostic Impression: Primary Impression: Acute pancreatitis ER Course Patient presented for intermittent hot flashes. Differential diagnosis include was not limited to ,alcohol withdrawal, menopause, anxiety, hyperthyroidism among others. Because of complexity of patient's case laboratory testing and imaging studies were ordered. Patient was noted to have unremarkable laboratory testing other than elevated lipase. Patient's denies any recent alcohol use however states that several days ago she began having increased discomfort in the right upper abdomen radiating to her back. Patient' s lipase was noted to be greater than 400. Patient requested IV fluids and was given maintenance IV while in the emergency department. ESR and white blood count were normal. She does not appear to be significantly dehydrated. She was given prescription for acid blockersPatient was advised to follow-up with her primary care physician for GI referral. She is advised to return if she was worse. Labs Test 04/04/19 23:40 White Blood Count 4.9 K/UL (4.8-10.8) Red Blood Count 4.63 M/UL (4.20-5.40) Hemoglobin 13.6 G/DL (12.0-16.0) Hematocrit 41.5 % (37.0-47.0) Mean Corpuscular Volume 90 FL (80-99) Mean Corpuscular Hemoglobin 29.3 PG (27.0-31.0) Mean Corpuscular Hemoglobin Concent 32.7 G/DL (32.0-36.0) Red Cell Distribution Width 11.3 % (11.6-14.8) Platelet Count 162 K/UL (150-450) Mean Platelet Volume 8.3 FL (6.5-10.1) Neutrophils (%) (Auto) % (45.0-75.0) Lymphocytes (%) (Auto) % (20.0-45.0) Monocytes (%) (Auto) % (1.0-10.0) Eosinophils (%) (Auto) % (0.0-3.0) Basophils (%) (Auto) % (0.0-2.0) Differential Total Cells Counted 100 Neutrophils % (Manual) 25 % (45-75) Lymphocytes % (Manual) 67 % (20-45) Monocytes % (Manual) 5 % (1-10) Eosinophils % (Manual) 3 % (0-3) Basophils % (Manual) 0 % (0-2) Band Neutrophils 0 % (0-8) Platelet Estimate Adequate Platelet Morphology Normal Erythrocyte Sedimentation Rate 3 MM/HR (0-20) Urine HCG, Qualitative Negative (NEGATIVE) Sodium Level 141 MMOL/L (136-145) Potassium Level 3.9 MMOL/L (3.5-5.1) Chloride Level 106 MMOL/L (98-107) Carbon Dioxide Level 29 MMOL/L (21-32) Anion Gap 6 mmol/L (5-15) Blood Urea Nitrogen 17 mg/dL (7-18) Creatinine 1.0 MG/DL (0.55-1.30) Estimat Glomerular Filtration Rate > 60 mL/min (>60) Glucose Level 104 MG/DL (74-106) Calcium Level 10.1 MG/DL (8.5-10.1) Total Bilirubin 0.5 MG/DL (0.2-1.0) Aspartate Amino Transf (AST/SGOT) 16 U/L (15-37) Alanine Aminotransferase (ALT/SGPT) 16 U/L (12-78) Alkaline Phosphatase 76 U/L (46-116) Total Protein 7.2 G/DL (6.4-8.2) Albumin 3.7 G/DL (3.4-5.0) Globulin 3.5 g/dL Albumin/Globulin Ratio 1.1 (1.0-2.7) Lipase 412 U/L (73-393) Last Vital Signs Date Time Temp Pulse Resp B/P (MAP) Pulse Ox O2 Delivery O2 Flow Rate FiO2 04/05/19 01:36 97.7 52 16 112/65 96 Room Air Status: improved Disposition: HOME, SELF-CARE Condition: Stable Scripts Omeprazole (OMEPRAZOLE) 20 Mg Capsule. 20 MG ORAL DAILY, #30 CAP Prov: Alex Jeff MD 04/05/19 Patient Instructions: Acute Pancreatitis Additional Instructions: Follow up with your doctor for GI referral. Do not drink alcohol. Return if worse. Alex Jeff MD Apr 06, 2019 22:03
== END 2019-04-05 01:37 | disposition home or self-care (01) ==
LOC: EMR 23:04
DX: K85.90 Acute pancreatitis without necrosis or infection, unspecified (principal); Z88.2 Allergy status to sulfonamides
CPT/HCPCS: 36415; 80053; 81025; 83690; 85007; 85025; 85651; 96365; 99284

== ENCOUNTER 2019-04-06 16:34 | Emergency (ER) | payer MEDICAID ==
[~2019-04-06] VITALS: Ht 170.2 cm; Wt 58.5 kg
[~2019-04-06 16:34] MED LIST changes: +OMEPRAZOLE20 M2 ORAL
[2019-04-06] MEDS ORDERED: NKM (16:46)
[2019-04-06 16:48] VITALS: BP 103/60
--- NOTE | 2019-04-06 16:49 | NUR ---
ED Nurse Note: pt walked in to ER c/o general weakness, abdominal pain 7/10, nausea. pt aao x4 and ambulatory. skin clean and intact. calm and cooperative.
[2019-04-06 17:39] LABS: APPEARANCE,URINE CLEAR; BILIRUBIN, URINE NEGATIVE (NEGATIVE); COLOR,URINE PALE YELLOW; GLUCOSE, URINE (UA) NEGATIVE (NEGATIVE); HEMATOCRIT 42.3 % (37.0-47.0); HEMOGLOBIN 13.7 G/DL (12.0-16.0); KETONES,URINE NEGATIVE (NEGATIVE); LEUKOCYTE ESTERASE ,URINE NEGATIVE (NEGATIVE); MEAN CORPUSCULAR VOLUME 89 FL (80-99); NITRITE,URINE NEGATIVE (NEGATIVE); PH,URINE 6.5 (4.5-8.0); PLATELET COUNT 172 K/UL (150-450); PROTEIN,URINE NEGATIVE (NEGATIVE); RED BLOOD COUNT 4.77 M/UL (4.20-5.40); RED CELL DISTRIBUTION WIDTH 10.8 % (11.6-14.8); UROBILINOGEN,URINE NORMAL MG/DL (0.0-1.0); WHITE BLOOD COUNT 4.5 K/UL (4.8-10.8)
[2019-04-06 17:43] LABS: ANION GAP 5 mmol/L (5-15); BLOOD UREA NITROGEN 17 mg/dL (7-18); CALCIUM 10.3 MG/DL (8.5-10.1); CARBON DIOXIDE 28 MMOL/L (21-32); CHLORIDE 101 MMOL/L (98-107); CREATININE 0.8 MG/DL (0.55-1.30); POTASSIUM 4.1 MMOL/L (3.5-5.1); SODIUM 134 MMOL/L (136-145)
[2019-04-06 17:48] LABS: ALANINE AMINOTRANSFERASE 16 U/L (12-78); ALBUMIN/GLOBULIN RATIO 1.1 (1.0-2.7); ALKALINE PHOSPHATASE 58 U/L (46-116); ASPARTATE AMINO TRANSFERASE 15 U/L (15-37)
[2019-04-06] MEDS ORDERED: RANITIDINE HCL150 MG ORAL (18:27)
[2019-04-06] MEDS ORDERED: ONDANSETRON ODT4 MG BC (18:27)
[2019-04-06 18:36] VITALS: BP 111/82
--- NOTE | 2019-04-06 19:03 | Emergency Room Report ---
History of Present Illness General Chief Complaint: Generalized Weakness Source: Patient Present Illness HPI . 38-year-old female presents ED for evaluation. Complaining of generalized weakness and nausea. Was here 2 days ago for the same thing. Was told that she had pancreatitis and discharged. States that she doesn't feel better. Denies any abdominal pain. Notes nausea, denies vomiting. Denies fevers or chills. No other aggravating relieving factors. Denies any other associated symptoms Allergies: Coded Allergies: SULFA (SULFONAMIDE ANTIBIOTICS) (Verified Allergy, Severe, 06/16/18) n/v Patient History Past Medical History: none Past Surgical History: none Pertinent Family History: none Social History: Denies: smoking, alcohol use, drug use Last Menstrual Period: 03/20/19 Now: No Immunizations: UTD Reviewed Nursing Documentation: PMH: Agreed; PSxH: Agreed Nursing Documentation-PMH Past Medical History: No Stated History Hx Cardiac Problems: No Hx Hypertension: No Hx Pacemaker: No Hx Asthma: No Hx COPD: No Hx Diabetes: No Hx Cancer: No Hx Gastrointestinal Problems: No Hx Dialysis: No Hx Neurological Problems: No Hx Cerebrovascular Accident: No Hx Seizures: No Review of Systems All Other Systems: negative except mentioned in HPI Physical Exam Vital Signs Date Time Temp Pulse Resp B/P (MAP) Pulse Ox O2 Delivery O2 Flow Rate FiO2 04/06/19 16:42 97.9 62 17 103/60 (74) 97 Room Air Sp02 EP Interpretation: reviewed, normal General Appearance: no apparent distress, alert, GCS 15, non-toxic Head: normocephalic, atraumatic Eyes: bilateral eye normal inspection, bilateral eye PERRL ENT: hearing grossly normal, normal pharynx, no angioedema, normal voice Neck: full range of motion, supple/symm/no masses Respiratory: chest non-tender, lungs clear, normal breath sounds, speaking full sentences Cardiovascular #1: regular rate, rhythm, no edema Cardiovascular #2: 2+ carotid (R), 2+ carotid (L), 2+ radial (R), 2+ radial (L) , 2+ dorsalis pedis (R), 2+ dorsalis pedis (L) Gastrointestinal: normal bowel sounds, non tender, soft, non-distended, no guarding, no rebound Rectal: deferred Genitourinary: normal inspection, no CVA tenderness Musculoskeletal: back normal, gait/station normal, normal range of motion, non- tender Neurologic: alert, oriented x3, responsive, motor strength/tone normal, sensory intact, speech normal Psychiatric: judgement/insight normal, memory normal, mood/affect normal, no suicidal/homicidal ideation Reflexes: 3+ bicep (R), 3+ bicep (L), 3+ tricep (R), 3+ tricep (L), 3+ knee (R) , 3+ knee (L) Lymphatic: no adenopathy Medical Decision Making Diagnostic Impression: Primary Impression: Gastritis Qualified Codes: K29.00 - Acute gastritis without bleeding ER Course Hospital Course 38 yo F presents c/o nausea, weakness differential diagnosis: gastritis, SBO, cholecystits Clinical course Patient placed on stretcher. On advertising operations coordinator. After initial history and physical I ordered labs, IV fluids Labs - no leukocytosis, no electrolyte abnormalities, LFTs normal, lipase ok, UA unremarkable reviewed EMR on last visit lipase was 412. Today was in the 200s. Discussed findings with patient unlikely acute pancreatitis more likely gastritis. Patient feels better. Safe for discharge with close outpatient follow-up. Will provide referrals I feel this is a highly complex case requiring extensive working including EKG/ Rhythm strip, Xray/CT/US, Blood/urine lab work, repeat exams while in ED, and administration of strong opiates/narcotics for pain control, admission to hospital or close patient follow up. Diagnosis - gastritis Stable and discharged to home with prescriptions for Zantac, zofran. Followup with PMD. Return to ED if symptoms recur or worsen Last Vital Signs Date Time Temp Pulse Resp B/P (MAP) Pulse Ox O2 Delivery O2 Flow Rate FiO2 04/06/19 18:36 98.2 71 17 111/82 98 Room Air Status: improved Disposition: HOME, SELF-CARE Condition: Stable Scripts Ranitidine Hcl* (ZANTAC*) 150 Mg Tablet 150 MG ORAL TWICE A DAY, #30 TAB Prov: Jose Luis Hough MD 04/06/19 Ondansetron Odt* (ZOFRAN ODT*) 4 Mg Tab.rapdis 4 MG BC EVERY 6 HOURS PRN for Nausea & Vomiting, #20 TAB 0 Refills Prov: Jose Luis Hough MD 04/06/19 Patient Instructions: Gastritis, Adult, [id number] Jose Luis Hough MD Apr 06, 2019 19:03
== END 2019-04-06 18:45 | disposition home or self-care (01) ==
LOC: EMR 18:41
DX: K29.00 Acute gastritis without bleeding (principal); Z88.2 Allergy status to sulfonamides
CPT/HCPCS: 36415; 80053; 81003; 81025; 83690; 85007; 85025; 96361; 96374; 96375; 99284; J2405; S0028

== ENCOUNTER 2019-06-28 08:45 | Emergency (ER) | payer MEDICAID ==
[~2019-06-28] VITALS: Ht 167.6 cm; Wt 63.5 kg
[~2019-06-28 08:45] MED LIST changes: +ONDANSETRON ODT4 MG BC; +RANITIDINE HCL150 MG ORAL
[2019-06-28 09:02] VITALS: BP 104/57
--- NOTE | 2019-06-28 09:03 | NUR ---
ED Nurse Note:pt. came with rigjht lower back pain for 1 week, ambulating with steady gait no injury reported
--- NOTE | 2019-06-28 09:05 | NUR ---
ED Nurse Note:urine sent to labs
[2019-06-28 09:12] LABS: APPEARANCE,URINE SLIGHTLY CLOUDY; BILIRUBIN, URINE NEGATIVE (NEGATIVE); COLOR,URINE PALE YELLOW; GLUCOSE, URINE (UA) NEGATIVE (NEGATIVE); KETONES,URINE NEGATIVE (NEGATIVE); LEUKOCYTE ESTERASE ,URINE NEGATIVE (NEGATIVE); NITRITE,URINE NEGATIVE (NEGATIVE); PH,URINE 8 (4.5-8.0); PROTEIN,URINE NEGATIVE (NEGATIVE); UROBILINOGEN,URINE NORMAL MG/DL (0.0-1.0)
--- NOTE | 2019-06-28 09:12 | Emergency Room Report ---
History of Present Illness General Chief Complaint: Back Pain-No Injury Source: Patient Present Illness HPI Disclaimer: Please note that this report is being documented using DRAGON technology. This can lead to erroneous entry secondary to incorrect interpretation by the dictating instrument. HPI: 38-year-old female with no reported medical history presents for evaluation of right-sided back pain. Symptoms have been present a proximally 1 week. Notes an aching in the right side of the mid lower back that exacerbated by bending and twisting motion. Does not radiate down the leg. Passing urine without difficulty. Denies bowel incontinence, lower extremity weakness, changes in ambulation or gait, saddle anesthesia, fever, chills, vomiting, diarrhea or any other symptoms. States is happened to her before and quickly resolved. She thinks she might of slept wrong on it a week ago but symptoms have not gone away despite NSAID and heating pad use. PMH: Denies PSH: Denies Allergies: Denies Social Hx: Occasional THC use Allergies: Coded Allergies: SULFA (SULFONAMIDE ANTIBIOTICS) (Verified Allergy, Severe, 06/16/18) n/v Patient History Last Menstrual Period: 06/04 Now: No Nursing Documentation-PMH Past Medical History: No Stated History Hx Cardiac Problems: No Hx Hypertension: No Hx Pacemaker: No Hx Asthma: No Hx COPD: No Hx Diabetes: No Hx Cancer: No Hx Gastrointestinal Problems: No Hx Dialysis: No Hx Neurological Problems: No Hx Cerebrovascular Accident: No Hx Seizures: No Review of Systems All Other Systems: negative except mentioned in HPI Physical Exam Vital Signs Date Time Temp Pulse Resp B/P (MAP) Pulse Ox O2 Delivery O2 Flow Rate FiO2 06/28/19 08:51 98.1 70 15 104/57 (73) 99 Room Air General: Awake and alert, no acute distress HEENT: NC/AT. EOMI. Resp: Normal work of breathing Skin: Intact. No abrasions, laceration or rash over the exposed skin MSK: Normal tone and bulk. Moving all extremities. No obvious deformity. Neuro: Awake and alert. Mentating appropriately Back/spine: Mild TTP over the right paraspinal region in the lower thoracic and upper lumbar region. No masses. No midline tenderness, deformity or stepoffs Medical Decision Making Diagnostic Impression: Primary Impression: Back pain ER Course 38-year-old female presents for 1 week of right-sided paraspinal back pain without neuro deficits or signs of infection. Overall, she is well-appearing in no acute distress. Believe this is likely a muscular skeletal injury, likely a muscle spasm, which we will treat with ibuprofen, Robaxin, lidocaine patches and persistent stretching and heat therapy. The patient's urinalysis does not show signs of infection and is negative. She will be discharged to follow-up with her PMD and we discussed reasons to return to the emergency department. She understands and agrees with this treatment plan. Last Vital Signs Date Time Temp Pulse Resp B/P (MAP) Pulse Ox O2 Delivery O2 Flow Rate FiO2 06/28/19 09:02 98.1 79 15 104/57 99 Room Air Disposition: HOME, SELF-CARE Condition: Stable Scripts Lidocaine Patch* (Lidoderm Patch*) 1 Each Adh..patch 1 PATCH TOPIC DAILY, #7 PATCH 0 Refills Patch(es) may remain in place for up to 12 hours in any 24-hour period. Prov: Donnell Pascual MD 06/28/19 Cyclobenzaprine Hcl* (FLEXERIL*) 10 Mg Tablet 10 MG ORAL THREE TIMES A DAY for 5 Days, #15 TAB Prov: Donnell Pascual MD 06/28/19 Ibuprofen* (MOTRIN*) 600 Mg Tablet 600 MG ORAL THREE TIMES A DAY, #30 TAB 0 Refills Prov: Donnell Pascual MD 06/28/19 Donnell Pascual MD Jun 28, 2019 09:12
[2019-06-28] MEDS ORDERED: CYCLOBENZAPRINE10 MG ORAL (09:25)
[2019-06-28] MEDS ORDERED: IBUPROFEN600 MG ORAL (09:25)
[2019-06-28] MEDS ORDERED: LIDODERM700 M1 TOPIC (09:25)
--- NOTE | 2019-06-28 09:30 | NUR ---
ER DISCHARGE NOTE: Patient is cleared to be discharged per ERMD, pt is aox4, on room air, with stable vital signs. pt was given dc and prescription instructions, pt was able to verbalize understanding, pt is able to ambulate with steady gait. pt took all belongings.
[2019-06-28 09:35] VITALS: BP 104/57
== END 2019-06-28 09:40 | disposition home or self-care (01) ==
LOC: EMR 09:15
DX: M54.9 Dorsalgia, unspecified (principal); Z88.2 Allergy status to sulfonamides
CPT/HCPCS: 81003; 81025; Z7502; 99282

== ENCOUNTER 2019-07-07 20:41 | Emergency (ER) | payer MEDICAID ==
[~2019-07-07] VITALS: Ht 170.2 cm; Wt 59.0 kg
[~2019-07-07 20:41] MED LIST changes: +CYCLOBENZAPRINE10 MG ORAL; +LIDODERM700 M1 TOPIC
[2019-07-07 21:01] VITALS: BP 106/54
--- NOTE | 2019-07-07 21:01 | NUR ---
ED Nurse Note: PATIENT AMBULATED TO ED DUE TO RIGHT FLANK PAIN X 2 WEEKS. PT SEEN 3 DAYS AGO [place] [facility] [place] [facility] [place] REASON. ALERT, VERBALLY RESPONSIVE. NO SOB. AFEBRILE. VSS.
--- NOTE | 2019-07-07 21:27 | Emergency Room Report ---
History of Present Illness General Chief Complaint: Back Injury Source: Patient Present Illness HPI Patient 38-year-old female presents after increased right upper abdominal pain and back pain. This is been present for approximately 2 weeks. She had previous ER visit approximately 4 days ago. She had recent testing done. She reports having increased postprandial pain. She denies any vomiting. Allergies: Coded Allergies: SULFA (SULFONAMIDE ANTIBIOTICS) (Verified Allergy, Severe, 06/16/18) n/v Patient History Last Menstrual Period: 06/30/19 Now: No Reviewed Nursing Documentation: PMH: Agreed; PSxH: Agreed Nursing Documentation-PMH Past Medical History: No History, Except For Hx Cardiac Problems: No Hx Hypertension: No Hx Pacemaker: No Hx Asthma: No Hx COPD: No Hx Diabetes: No Hx Cancer: No Hx Gastrointestinal Problems: No Hx Dialysis: No Hx Neurological Problems: No Hx Cerebrovascular Accident: No Hx Seizures: No Review of Systems All Other Systems: negative except mentioned in HPI Physical Exam Vital Signs Date Time Temp Pulse Resp B/P (MAP) Pulse Ox O2 Delivery O2 Flow Rate FiO2 07/07/19 20:58 98.2 60 14 106/54 (71) 98 Room Air Sp02 EP Interpretation: reviewed, normal General Appearance: normal inspection, well appearing, no apparent distress, alert, GCS 15 Head: atraumatic ENT: normal ENT inspection, hearing grossly normal, normal voice Neck: normal inspection, full range of motion, supple, no bony tend Respiratory: normal inspection, lungs clear, normal breath sounds, no respiratory distress, no retraction, no wheezing Cardiovascular #1: regular rate, rhythm, no edema Gastrointestinal: normal inspection, normal bowel sounds, non tender, soft, no guarding, no hernia Genitourinary: no CVA tenderness Musculoskeletal: normal inspection, back normal, normal range of motion Neurologic: normal inspection, alert, responsive, speech normal Psychiatric: normal inspection, judgement/insight normal, mood/affect normal Medical Decision Making Diagnostic Impression: Primary Impression: Nonspecific abdominal pain ER Course Patient presented for abdominal pain. Differential diagnoses included ischemic bowel, appendicitis, perforated viscus, abdominal aortic aneurysm, inferior myocardial infarction, viral gastroenteritis among others. Patient has a benign exam and does not appear to require any imaging or laboratory testing at this time. Patient had recent laboratory studies performed and had a negative test. She does not have any current pain but has had multiple prior episodes of similar symptoms in the past. GI cocktail was ordered. Patient declines. Patient will follow-up with primary care physician for outpatient ultrasound for further evaluation. She had previous similar symptoms and does not appear to have any evidence of acute emergency. Patient appears to be stable for outpatient follow-up. Patient advised to return if she had any worsening condition or other concerns. Last Vital Signs Date Time Temp Pulse Resp B/P (MAP) Pulse Ox O2 Delivery O2 Flow Rate FiO2 07/07/19 21:01 98.2 78 14 106/54 98 Room Air Status: improved Disposition: HOME, SELF-CARE Condition: Stable Scripts Dicyclomine Hcl* (DICYCLOMINE HCL*) 10 Mg Capsule 10 MG ORAL QID, #20 CAP Prov: Alex Jeff MD 07/07/19 Alex Jeff MD Jul 07, 2019 21:27
[2019-07-07] MEDS ORDERED: Dicyclomine HCl 10mg/5ml oral soln ORAL ONE (21:45)
[2019-07-07] MEDS ORDERED: Lidocaine 2% Visc 15ml soln ORAL ONE (21:45)
--- NOTE | 2019-07-07 21:52 | NUR ---
ED Nurse Note: PT REFUSED ALL ORDERED MEDICATIONS. EXPLAINED RISK AND BENEFITS. MD NOTIFIED.
[2019-07-07] MEDS ORDERED: DICYCLOMINE HCL10 MG ORAL (21:53)
[2019-07-07 21:58] VITALS: BP 106/54
--- NOTE | 2019-07-07 21:58 | NUR ---
ED Nurse Note: Pt cleared by ERMD for discharge. DC instructions was explained but patient refused to sign. All medical devices such as ID band removed. Pt is AAO x4, ambulatory and left with all personal belongings.
== END 2019-07-07 21:58 | disposition home or self-care (01) ==
LOC: EMR 21:39
DX: R10.11 Right upper quadrant pain (principal); Z88.2 Allergy status to sulfonamides
CPT/HCPCS: 99282

== ENCOUNTER 2019-09-03 00:14 | Emergency (ER) | payer MEDICAID ==
[~2019-09-03] VITALS: Ht 170.2 cm; Wt 61.2 kg
[~2019-09-03 00:14] MED LIST changes: +DICYCLOMINE HCL10 MG ORAL
[2019-09-03 00:40] VITALS: BP 95/51
--- NOTE | 2019-09-03 00:40 | NUR ---
ED Nurse Note: Patient walked in from home d/t dizziness started this past saturday (3 days ago). Patient headache 04/25. Patient aao x 4 and ambulatory. Patient placed on [employer] science [employer] and gown. No acute distress at this time.
--- NOTE | 2019-09-03 00:53 | Emergency Room Report ---
History of Present Illness General Chief Complaint: Dizziness Source: Patient Present Illness HPI 38-year-old female who presents to emergency room for 3 days of acute onset "dehydration". She states that she has not been able to keep liquids down because she has been very weak and tired. She states she feels dizzy and her mouth is very dry. She notes history of similar symptoms in the past where her " veins are collapsed" as they are today. Patient has not tried any medications for the symptoms. Social history significant daily smoking Past medical history none Past surgical history none Allergies: Coded Allergies: SULFA (SULFONAMIDE ANTIBIOTICS) (Verified Allergy, Severe, 06/16/18) n/v Patient History Last Menstrual Period: 08/20/19 Now: No : 1 Para: 1 Nursing Documentation-[facility] Past Medical History: No Stated History Hx Cardiac Problems: No Hx Hypertension: No Hx Pacemaker: No Hx Asthma: No Hx COPD: No Hx Diabetes: No Hx Cancer: No Hx Gastrointestinal Problems: No Hx Dialysis: No Hx Neurological Problems: No Hx Cerebrovascular Accident: No Hx Seizures: No Review of Systems Constitutional: Denies: chills, fever Respiratory: Denies: cough, shortness of breath Cardiovascular: Denies: chest pain, palpitations Gastrointestinal: Denies: diarrhea, vomiting Genitourinary: Denies: hematuria, pain Musculoskeletal: Denies: joint swelling Skin: Denies: rash, lesions Neurological: Reports: headache; Denies: dizziness Physical Exam Vital Signs Date Time Temp Pulse Resp B/P (MAP) Pulse Ox O2 Delivery O2 Flow Rate FiO2 09/03/19 00:19 98.2 76 19 93/59 (70) 99 09/03/19 00:40 Room Air Sp02 EP Interpretation: reviewed General Appearance: well appearing, no apparent distress, non-toxic Head: normocephalic, atraumatic Eyes: bilateral eye normal inspection ENT: hearing grossly normal, EOM grossly intact, moist mucus membranes Neck: supple Respiratory: lungs clear, normal breath sounds, no respiratory distress, speaking full sentences Cardiovascular #1: regular rate, rhythm, normal capillary refill Cardiovascular #2: 2+ radial (R), 2+ radial (L) Gastrointestinal: soft, non-distended Rectal: deferred Musculoskeletal: moves extm spontaneously, no lower extremity edema Neurologic: grossly normal Psychiatric: mood/affect normal Skin: warm/dry, normal turgor Medical Decision Making Diagnostic Impression: Primary Impression: Dizziness Additional Impression: Generalized weakness ER Course 38-year-old female who presents with "dehydration" for 3 days duration Found to have no physical findings on exam Differential includes weakness, acute kidney injury, viral illness, psychiatric illness, malingering, secondary gain We will evaluate patient for signs of dehydration such as kidney function. Will give IV fluids and reassess. Lab Results Impression CBC within normal limits, CMP within normal limits normal GFR normal BUN and creatinine, urine within normal limits negative for ketones Last Vital Signs Date Time Temp Pulse Resp B/P (MAP) Pulse Ox O2 Delivery O2 Flow Rate FiO2 09/03/19 00:40 59 21 Room Air 09/03/19 00:40 98.0 95/51 100 Reevaluation Impression Patient reported feeling much better after IV fluid hydration. Patient's lab testing reviewed noted to be within normal limits. Patient is stable for outpatient follow-up and discharge. Patient recommended to take Pedialyte or Gatorade to increase oral hydration. Disposition: HOME, SELF-CARE Condition: Stable Referrals: NON PHYSICIAN (PCP) [facility] Patient Instructions: Dizziness Additional Instructions: Follow-up with your primary care doctor in 2 to 3 days for reevaluation Cricket Bush M.D. Sep 03, 2019 00:53
[2019-09-03 01:30] LABS: EOSINOPHILS % (AUTO) 1.9 % (0.0-3.0); HEMATOCRIT 38.9 % (37.0-47.0); HEMOGLOBIN 12.9 G/DL (12.0-16.0); LYMPHOCYTES % (AUTO) 48.8 % (20.0-45.0); MEAN CORPUSCULAR VOLUME 87 FL (80-99); MONOCYTES % (AUTO) 7.9 % (1.0-10.0); NEUTROPHILS % (AUTO) 40.4 % (45.0-75.0); PLATELET COUNT 167 K/UL (150-450); RED BLOOD COUNT 4.45 M/UL (4.20-5.40); RED CELL DISTRIBUTION WIDTH 11.4 % (11.6-14.8); WHITE BLOOD COUNT 6.1 K/UL (4.8-10.8)
[2019-09-03 01:43] LABS: ANION GAP 7 mmol/L (5-15); BLOOD UREA NITROGEN 13 mg/dL (7-18); CALCIUM 9.7 MG/DL (8.5-10.1); CARBON DIOXIDE 28 MMOL/L (21-32); CHLORIDE 104 MMOL/L (98-107); CREATININE 0.8 MG/DL (0.55-1.30); POTASSIUM 3.7 MMOL/L (3.5-5.1); SODIUM 139 MMOL/L (136-145)
[2019-09-03 01:50] LABS: ALANINE AMINOTRANSFERASE 33 U/L (12-78); ALBUMIN 3.5 G/DL (3.4-5.0); ALKALINE PHOSPHATASE 54 U/L (46-116); ASPARTATE AMINO TRANSFERASE 22 U/L (15-37); BILIRUBIN,TOTAL 0.5 MG/DL (0.2-1.0)
[2019-09-03 01:56] VITALS: BP 101/61
[2019-09-03 02:27] VITALS: BP 105/65
[2019-09-03 02:27] LABS: APPEARANCE,URINE CLEAR; BILIRUBIN, URINE NEGATIVE (NEGATIVE); COLOR,URINE PALE YELLOW; GLUCOSE, URINE (UA) NEGATIVE (NEGATIVE); KETONES,URINE NEGATIVE (NEGATIVE); LEUKOCYTE ESTERASE ,URINE NEGATIVE (NEGATIVE); NITRITE,URINE NEGATIVE (NEGATIVE); PH,URINE 6 (4.5-8.0); PROTEIN,URINE NEGATIVE (NEGATIVE); UROBILINOGEN,URINE NORMAL MG/DL (0.0-1.0)
--- NOTE | 2019-09-03 02:27 | NUR ---
ER DISCHARGE NOTE: Patient is cleared to be discharged per ERMD, pt is aox4, on room air, with stable vital signs. pt was given dc paperowkr, verbalized understanding. pt id band and iv site removed intact without complications. pt is able to ambulate with steady gait. pt took all belongings. pt stable upon discharge.
== END 2019-09-03 02:27 | disposition home or self-care (01) ==
LOC: EMR 00:45
DX: R42 Dizziness and giddiness (principal); R53.1 Weakness; Z88.2 Allergy status to sulfonamides
CPT/HCPCS: 36415; 80053; 81003; 81025; 85025; 96360; J7030; Z7502; 99284

== ENCOUNTER 2019-09-10 08:17 | Emergency (ER) | payer MEDICAID ==
[~2019-09-10] VITALS: Ht 170.2 cm; Wt 60.8 kg
--- NOTE | 2019-09-10 08:22 | NUR ---
ED Nurse Note: Pt ambulated to ED with the c/o right low back pain radiating to thigh. Pt is AOx4, placed on bed, sitting.
--- NOTE | 2019-09-10 08:23 | NUR ---
ED Nurse Note: Pt on bed, talking on phone; no signs of acute distress. Initiate complex assessment but pt verbalized "I am on the phone right now".
[2019-09-10 08:25] VITALS: BP 110/60
[2019-09-10] MEDS ORDERED: NKM (08:25)
--- NOTE | 2019-09-10 08:25 | NUR ---
ED Nurse Note: ERMD on bedside. Obtained urine specimen; sent to labs.
--- NOTE | 2019-09-10 08:38 | Emergency Room Report ---
History of Present Illness General Chief Complaint: Back Pain-No Injury Source: Patient Present Illness HPI Disclaimer: Please note that this report is being documented using DRAGON technology. This can lead to erroneous entry secondary to incorrect interpretation by the dictating instrument. HPI: 38-year-old female presents for evaluation of right-sided back pain. No trauma reported. Denies dysuria, hematuria. Pain is worse with bending and twisting motions. She believes she has an infection. Denies any fever, chills , abdominal pain, vomiting. Noted diarrhea several days ago. She was seen here in the emergency department for "dehydration." Received IV fluids and labs were unremarkable at that time. Denies any pain radiating from the back down to the leg. Denies urinary retention, numbness, tingling, weakness in the lower extremities or fecal incontinence. Does not inject any medications. Patient is requesting some sort of injection that she states she had in the past. She states she does not take oral antibiotics but believes she has infection at this time. Patient is very combative. She became frustrated and angry during our history taking portion and refused physical exam. Would not allow me to examine her. She is consenting to a urinalysis. PMH: Denies PSH: Denies Allergies: Sulfa medications listed Social Hx: Denies IV drug injection Allergies: Coded Allergies: SULFA (SULFONAMIDE ANTIBIOTICS) (Verified Allergy, Severe, 06/16/18) n/v Patient History Last Menstrual Period: CURRENTLY ON HER PERIOD Now: No Nursing Documentation-PMH Past Medical History: No Stated History Hx Cardiac Problems: No Hx Hypertension: No Hx Pacemaker: No Hx Asthma: No Hx COPD: No Hx Diabetes: No Hx Cancer: No Hx Gastrointestinal Problems: No Hx Dialysis: No Hx Neurological Problems: No Hx Cerebrovascular Accident: No Hx Seizures: No Review of Systems All Other Systems: negative except mentioned in HPI Physical Exam Vital Signs Date Time Temp Pulse Resp B/P (MAP) Pulse Ox O2 Delivery O2 Flow Rate FiO2 09/10/19 08:20 97.5 63 18 107/54 (71) 98 Room Air General: Awake and alert, no acute distress HEENT: NC/AT. EOMI. Resp: Normal work of breathing Skin: Intact. No abrasions, laceration or rash over the exposed skin MSK: Normal tone and bulk. Moving all extremities. No obvious deformity. Neuro: Awake and alert. Mentating appropriately Spine: There is no tenderness, step-off or deformity in the thoracic or lumbosacral spine. Moderate paraspinal tenderness on the right side and tenderness over the superior gluteus and piriformis. No obvious trigger point Medical Decision Making Diagnostic Impression: Primary Impression: Back pain ER Course 38-year-old female presents for evaluation of 3 days right-sided nonradiating back pain without trauma. Differential includes was not limited to UTI, pyelonephritis, muscular strain, myositis. She is well-appearing with stable vital signs and is ambulatory under her own power with a steady gait. Patient refusing physical exam. She appears frustrated and angry during history taking. Lab work including renal function was within normal limits on 09/03. No other complaints at this time. Will obtain a urinalysis to evaluate for possible UTI/pyelonephritis though again I cannot assess for flank pain CVA tenderness as the patient is refusing physical exam. Laboratory Tests Test 09/10/19 08:21 Urine Color Pale yellow Urine Appearance Slightly cloudy Urine pH 8 (4.5-8.0) Urine Specific [place] 1.010 (1.005-1.035) Urine Protein Negative (NEGATIVE) Urine Glucose (UA) Negative (NEGATIVE) Urine Ketones Negative (NEGATIVE) Urine Blood 3+ (NEGATIVE) H Urine Nitrite Negative (NEGATIVE) Urine Bilirubin Negative (NEGATIVE) Urine Urobilinogen Normal MG/DL (0.0-1.0) Urine Leukocyte Esterase Negative (NEGATIVE) Urine RBC 2-4 /HPF (0 - 2) H Urine WBC 0-2 /HPF (0 - 2) Urine Squamous Epithelial Cells Many /LPF (NONE/OCC) H Urine Amorphous Sediment Moderate /LPF (NONE) H Urine Bacteria Few /HPF (NONE) Urine HCG, Qualitative Negative (NEGATIVE) Reevaluation Time: 09:09 Last Vital Signs Date Time Temp Pulse Resp B/P (MAP) Pulse Ox O2 Delivery O2 Flow Rate FiO2 09/10/19 08:20 97.5 63 18 107/54 (71) 98 Room Air Reevaluation Impression No evidence of UTI on urinalysis. hCG is negative. The patient is now calm and cooperative. There is no midline tenderness though there is some paraspinal tenderness on the right side and over the superior gluteal consistent with a muscle spasm or strain. Patient was offered oral pain medication and muscle relaxer however she states that she has a hard time with pills and would rather use topical lidocaine patch for 1 week and monitor for improvement. She is well-appearing otherwise with no other complaints. We discussed reasons to return to the emergency department as well as need for follow-up. She understands and agrees with treatment plan was discharged home. Disposition: HOME, SELF-CARE Condition: Stable Scripts Lidocaine Patch* (Lidoderm Patch*) 1 Each Adh..patch 1 PATCH TOPIC DAILY, #7 PATCH 0 Refills Patch(es) may remain in place for up to 12 hours in any 24-hour period. Prov: Donnell Pascual MD 09/10/19 Donnell Pascual MD Sep 10, 2019 08:38
[2019-09-10 08:50] LABS: APPEARANCE,URINE SLIGHTLY CLOUDY; BILIRUBIN, URINE NEGATIVE (NEGATIVE); COLOR,URINE PALE YELLOW; GLUCOSE, URINE (UA) NEGATIVE (NEGATIVE); KETONES,URINE NEGATIVE (NEGATIVE); LEUKOCYTE ESTERASE ,URINE NEGATIVE (NEGATIVE); NITRITE,URINE NEGATIVE (NEGATIVE); PH,URINE 8 (4.5-8.0); PROTEIN,URINE NEGATIVE (NEGATIVE); UROBILINOGEN,URINE NORMAL MG/DL (0.0-1.0)
--- NOTE | 2019-09-10 09:06 | NUR ---
ED Nurse Note: ERMD on bedside. Physical exam on the affected area done.
[2019-09-10] MEDS ORDERED: LIDODERM700 M1 TOPIC (09:08)
[2019-09-10 09:10] VITALS: BP 115/64
--- NOTE | 2019-09-10 09:10 | NUR ---
ER DISCHARGE NOTE: Pt is cleared to be discharged per ERMD, pt is aox4, on RA, VSS. pt was given dc and prescription instructions, pt was able to verbalize understanding, pt id band. pt is able to ambulate with steady gait. pt took all belongings. Pt left ER with daughter.
--- NOTE | 2019-09-10 09:10 | NUR ---
Note erikajaye in EDM - 09/10/19 at 0914 by SABINA ER DISCHARGE NOTE: Pt is cleared to be discharged per ERMD, pt is aox4, on RA, VSS. pt was given dc and prescription instructions, pt was able to verbalize understanding, pt id band and iv site removed without complications. pt is able to ambulate with steady gait. pt took all belongings. Pt left ER with daughter
--- NOTE | 2019-09-10 09:11 | NUR ---
ER DISCHARGE NOTE: *ID BAND REMOVED.
== END 2019-09-10 09:10 | disposition home or self-care (01) ==
LOC: EMR 08:35
DX: M54.9 Dorsalgia, unspecified (principal); Z88.2 Allergy status to sulfonamides
CPT/HCPCS: 81003; 81025; Z7502; 99283

== ENCOUNTER 2019-09-22 16:54 | Emergency (ER) | payer MEDICAID ==
[~2019-09-22] VITALS: Ht 170.2 cm; Wt 61.2 kg
[~2019-09-22 16:54] MED LIST changes: +IBU800 MG PO
--- NOTE | 2019-09-22 18:25 | Emergency Room Report ---
History of Present Illness General Chief Complaint: Skin Rash/Abscess Source: Patient Present Illness HPI 38-year-old female presents to the emergency department complaining of 8 out of 10 severity pain localized to the right lower extremity which has been progressing from 2 insect bites since yesterday. Patient reports she woke up and her entire lower leg was swollen and extremely itchy and painful. Patient denies fevers or chills. She denies posterior calf pain. Denies appreciative trauma or fall. Pt. denies swollen tender lymph nodes. Denies lesions/rashes elsewhere on the body. Denies new medications or body washes or creams. Denies swelling of the lips, tongue , throat or airway. Denies wheezing, or shortness of breath. Denies recent travel, recent illness or ill contacts. denies blisters, oral lesions, or sloughing of the skin Allergies: Coded Allergies: SULFA (SULFONAMIDE ANTIBIOTICS) (Verified Allergy, Severe, 06/16/18) n/v Patient History Past Medical History: see triage record Past Surgical History: none Pertinent Family History: none Last Menstrual Period: 2 weeks Now: No Immunizations: UTD Reviewed Nursing Documentation: PMH: Agreed; PSxH: Agreed Nursing Documentation-PMH Past Medical History: No Stated History Hx Cardiac Problems: No Hx Hypertension: No Hx Pacemaker: No Hx Asthma: No Hx COPD: No Hx Diabetes: No Hx Cancer: No Hx Gastrointestinal Problems: No Hx Dialysis: No Hx Neurological Problems: No Hx Cerebrovascular Accident: No Hx Seizures: No Review of Systems All Other Systems: negative except mentioned in HPI Physical Exam Vital Signs Date Time Temp Pulse Resp B/P (MAP) Pulse Ox O2 Delivery O2 Flow Rate FiO2 09/22/19 17:12 97.9 94 20 117/67 (84) 97 Room Air Sp02 EP Interpretation: reviewed, normal General Appearance: no apparent distress, alert, GCS 15, non-toxic Head: normocephalic, atraumatic Eyes: bilateral eye normal inspection, bilateral eye PERRL ENT: hearing grossly normal, normal voice Neck: full range of motion Respiratory: lungs clear, normal breath sounds, no wheezing, speaking full sentences Cardiovascular #1: regular rate, rhythm Cardiovascular #2: 2+ dorsalis pedis (R) Musculoskeletal: normal range of motion, no calf tenderness, gait/station normal, tender - medial right ankle, swelling - medial right ankle. , other - erythema of medial right ankle Neurologic: alert, motor strength/tone normal, oriented x3, sensory intact, responsive, speech normal Psychiatric: judgement/insight normal Skin: other - two discrete insect bites with surrounding warmth and erythema of medial right ankle. no blisters or vessicles. Lymphatic: no adenopathy Medical Decision Making PA Attestation Dr. Bush is my supervising Physician whom patient management has been discussed with. Diagnostic Impression: Primary Impression: Infected insect bite Qualified Codes: W57.XXXA - Bitten or stung by nonvenomous insect and other nonvenomous arthropods, initial encounter ER Course 38-year-old female presents to the emergency department complaining of 8 out of 10 severity pain localized to the right lower extremity which has been progressing from 2 insect bites since yesterday. Patient reports she woke up and her entire lower leg was swollen and extremely itchy and painful. Patient denies fevers or chills. She denies posterior calf pain. Denies appreciative trauma or fall. Pt. denies swollen tender lymph nodes. Denies lesions/rashes elsewhere on the body. Denies new medications or body washes or creams. Denies swelling of the lips, tongue , throat or airway. Denies wheezing, or shortness of breath. Denies recent travel, recent illness or ill contacts. denies blisters, oral lesions, or sloughing of the skin Ddx considered but are not limited to cellulitis, Necrotizing fasciitis, allergic reaction, burn, dermatitis, fracture, d/L, gout, paronichia, eponichia, ingrown toe nail, Vital signs: are WNL, pt. is afebrile H&PE are most consistent with insect bites with secondary cellulitic infection. ORDERS: none required at this time, the diagnosis is clinical ED INTERVENTIONS: None required at this time. DISCHARGE: At this time pt. is stable for d/c to home. Will provide printed patient care instructions, and any necessary prescriptions. Care plan and follow up instructions have been discussed with the patient prior to discharge. Last Vital Signs Date Time Temp Pulse Resp B/P (MAP) Pulse Ox O2 Delivery O2 Flow Rate FiO2 09/22/19 17:12 97.9 94 20 117/67 (84) 97 Room Air Disposition: HOME, SELF-CARE Condition: Stable Scripts Hydrocortisone 2% Cream (ANTI-ITCH 2% CREAM) Y Cr 1 APPLIC TP Q6HR, #28 GM Prov: Ligia Junior 09/22/19 Ibuprofen* (MOTRIN*) 600 Mg Tablet 600 MG ORAL THREE TIMES A DAY, #30 TAB 0 Refills Prov: Ligia Junior 09/22/19 Cephalexin* (KEFLEX*) 500 Mg Capsule 500 MG ORAL EVERY 12 HOURS for 7 Days, #14 CAP 0 Refills Prov: Ligia Junior 09/22/19 Patient Instructions: Cellulitis, [id number] Additional Instructions: Take medications as directed. Follow up with a Primary Care Provider in 3-5 days, even if your symptoms have resolved. Return sooner to ED if new symptoms occur, or current symptoms become worse. - Please note that this Emergency Department Report was dictated using Algentishoning machine operator technology software, occasionally this can lead to erroneous entry secondary to interpretation by the dictation equipment. Ligia Junior Sep 22, 2019 18:25
[2019-09-22 18:27] VITALS: BP 117/67
[2019-09-22] MEDS ORDERED: IBUPROFEN600 MG ORAL (18:27)
[2019-09-22] MEDS ORDERED: CEPHALEXIN500 MG ORAL (18:27)
[2019-09-22] MEDS ORDERED: ANTI-ITCH28 G1 TP (18:27)
[2019-09-22 18:33] VITALS: BP 118/94
[2019-09-24] MEDS ORDERED: BENADRYL25 MG ORAL (21:35)
[2019-09-24] MEDS ORDERED: NORCO 5-325 TA1 EACH ORAL ×2 (21:35→21:36)
== END 2019-09-22 18:33 | disposition home or self-care (01) ==
LOC: EMR 18:32
DX: S90.561A Insect bite (nonvenomous), right ankle, initial encounter (principal); W57.XXXA Bitten or stung by nonvenomous insect and other nonvenomous arthropods, initial encounter; Z88.2 Allergy status to sulfonamides
CPT/HCPCS: 99282

== ENCOUNTER 2019-10-17 12:36 | Emergency (ER) | payer MEDICAID, OTHER ==
[~2019-10-17] VITALS: Ht 170.2 cm; Wt 59.0 kg
[~2019-10-17 12:36] MED LIST changes: +ANTI-ITCH28 G1 TP; +BENADRYL25 MG ORAL; +NORCO 5-325 TA1 EACH ORAL
--- NOTE | 2019-10-17 12:51 | NUR ---
ED Nurse Note: PT WALKED IN C/O RIGHT FLANK PAIN WITH MOVEMENT X3DAYS AFTER LIFTING HEAVY OBJECTS. PT STATES PAIN 8/.
--- NOTE | 2019-10-17 13:20 | NUR ---
ED Nurse Note: urine collected and sent
[2019-10-17 13:30] VITALS: BP 111/74
[2019-10-17 13:52] LABS: APPEARANCE,URINE CLEAR; BILIRUBIN, URINE NEGATIVE (NEGATIVE); COLOR,URINE PALE YELLOW; GLUCOSE, URINE (UA) NEGATIVE (NEGATIVE); KETONES,URINE NEGATIVE (NEGATIVE); LEUKOCYTE ESTERASE ,URINE NEGATIVE (NEGATIVE); NITRITE,URINE NEGATIVE (NEGATIVE); PH,URINE 6.5 (4.5-8.0); PROTEIN,URINE NEGATIVE (NEGATIVE); UROBILINOGEN,URINE NORMAL MG/DL (0.0-1.0)
--- NOTE | 2019-10-17 14:07 | Emergency Room Report ---
History of Present Illness General Chief Complaint: Lower Back Pain or Injury Source: Patient Present Illness HPI 38-year-old female with no significant past medical history here complaining of 2 days of right-sided flank pain after lifting heavy objects. Rated pain 10. Denies any tingling numbness. Denies saddle paresthesia, urinary and bowel incontinence. Denies pain radiation to the suprapubic area. Denies nausea vomiting, fever and chills. Denies urinary frequency and urgency. Has not taken medication other than [place] for symptom relief. Sitting comfortably with stable vital signs. Allergies: Coded Allergies: SULFA (SULFONAMIDE ANTIBIOTICS) (Verified Allergy, Severe, 06/16/18) n/v Patient History Past Medical History: see triage record Past Surgical History: unable to obtain Pertinent Family History: none Last Menstrual Period: 09/27/2018 Now: No : 1 Para: 1 Immunizations: UTD Reviewed Nursing Documentation: PMH: Agreed; PSxH: Agreed Nursing Documentation-PMH Past Medical History: No Stated History Hx Cardiac Problems: No Hx Hypertension: No Hx Pacemaker: No Hx Asthma: No Hx COPD: No Hx Diabetes: No Hx Cancer: No Hx Gastrointestinal Problems: No Hx Dialysis: No Hx Neurological Problems: No Hx Cerebrovascular Accident: No Hx Seizures: No Review of Systems All Other Systems: negative except mentioned in HPI Physical Exam Vital Signs Date Time Temp Pulse Resp B/P (MAP) Pulse Ox O2 Delivery O2 Flow Rate FiO2 10/17/19 12:49 98.2 97 18 105/74 (84) 100 Room Air Sp02 EP Interpretation: reviewed, normal General Appearance: no apparent distress, alert, GCS 15, non-toxic Head: normocephalic, atraumatic Eyes: bilateral eye normal inspection, bilateral eye PERRL ENT: hearing grossly normal, normal pharynx, no angioedema, normal voice Neck: full range of motion, supple/symm/no masses Respiratory: chest non-tender, lungs clear, normal breath sounds, no rhonchi, no retraction, no wheezing, speaking full sentences Cardiovascular #1: regular rate, rhythm, no edema, no murmur Gastrointestinal: non tender, soft Genitourinary: no CVA tenderness Musculoskeletal: back normal, digits/nails normal, no calf tenderness, pelvis stable, non-tender Neurologic: alert, motor strength/tone normal, oriented x3, sensory intact, responsive, speech normal Psychiatric: judgement/insight normal, memory normal, mood/affect normal, no suicidal/homicidal ideation Skin: no rash Lymphatic: no adenopathy Medical Decision Making PA Attestation All my diagnosis and treatment plans were reviewed ad discussed with my supervising physician Dr. Jeff Diagnostic Impression: Primary Impression: Low back strain ER Course 38-year-old female with no significant past medical history here complaining of 2 days of right-sided flank pain after lifting heavy objects. Rated pain 10. Denies any tingling numbness. Denies saddle paresthesia, urinary and bowel incontinence. Denies pain radiation to the suprapubic area. Denies nausea vomiting, fever and chills. Denies urinary frequency and urgency. Has not taken medication other than [place] for symptom relief. Sitting comfortably with stable vital signs. Ddx considered but are not limited to: Lumbar spine sprain, strain, fracture, contusion, neuropathy Vital signs: are WNL, pt. is afebrile H&PE are most consistent with: lumbar strain ORDERS: UA, urine , Motrin, lidocaine patch, Robaxin ER intervention: None DISCHARGE: At this time pt. is stable for d/c to home. Will provide printed patient care instructions, and any necessary prescriptions. Care plan and follow up instructions have been discussed with the patient prior to discharge. At this time no imaging needed as patient did not fall or injure herself. Patient take medication as directed, alternating icing and heating the affected area, avoid strenuous physical activity, follow-up with primary care provider, if worsening symptoms return to the emergency room. At this time I do not suspect any CVA tenderness or renal issues. Last Vital Signs Date Time Temp Pulse Resp B/P (MAP) Pulse Ox O2 Delivery O2 Flow Rate FiO2 10/17/19 13:30 98.2 71 18 111/74 100 Room Air Disposition: HOME, SELF-CARE Condition: Stable Scripts Lidocaine Patch* (Lidoderm Patch*) 1 Each Adh..patch 1 PATCH TOPIC DAILY, #7 PATCH 0 Refills Patch(es) may remain in place for up to 12 hours in any 24-hour period. Prov: Eulalio Craig 10/17/19 Methocarbamol* (ROBAXIN-500*) 500 Mg Tablet 500 MG ORAL TID PRN for For Pain, #15 TAB 0 Refills Prov: Eulalio Craig 10/17/19 Ibuprofen* (MOTRIN*) 600 Mg Tablet 600 MG ORAL Q8H PRN for For Pain, #30 TAB 0 Refills Prov: Eulalio Craig 10/17/19 Patient Instructions: Low Back Sprain With Rehab-SportsMed Additional Instructions: Take medication as directed, follow-up with your primary care provider, alternate between icing and heating the affected area, if worsening symptoms return to the emergency room Eulalio Craig Oct 17, 2019 14:07
[2019-10-17] MEDS ORDERED: ROBAXIN-500MG ORAL (14:09)
[2019-10-17] MEDS ORDERED: IBUPROFEN600 MG ORAL (14:09)
[2019-10-17] MEDS ORDERED: LIDODERM700 M1 TOPIC (14:09)
[2019-10-17 14:10] VITALS: BP 118/71
== END 2019-10-17 14:10 | disposition home or self-care (01) ==
LOC: EMR 13:26
DX: S39.012A Strain of muscle, fascia and tendon of lower back, initial encounter (principal); X50.0XXA Overexertion from strenuous movement or load, initial encounter; Y92.9 Unspecified place or not applicable; Z88.2 Allergy status to sulfonamides
CPT/HCPCS: 81003; 81025; Z7502; 99283

== ENCOUNTER 2019-10-28 19:30 | Emergency (ER) | payer MEDICAID ==
[~2019-10-28] VITALS: Ht 170.2 cm; Wt 59.0 kg
[~2019-10-28 19:30] MED LIST changes: +ROBAXIN-500MG ORAL
--- NOTE | 2019-10-28 19:38 | NUR ---
ED Nurse Note: PT WALKED IN FROM HOME C/O R FLANK PAIN [id number]. PT WAS SEEN HERE LAST WEEK FOR SAME SYMPTOMS AND WAS DX MUSCLE SPASM. PT STATES TAKING MOTRIN AND LIDOCAINE PATCH WITH NO RELIEF. PT STATES HAVING BLACK BM TODAY. VSS, NAD, ERMD AT BEDSIDE. WILL CONTINUE TO MONITOR PATIENT.
[2019-10-28 19:57] VITALS: BP 105/57
[2019-10-28 20:23] LABS: APPEARANCE,URINE CLEAR; BILIRUBIN, URINE NEGATIVE (NEGATIVE); COLOR,URINE PALE YELLOW; GLUCOSE, URINE (UA) NEGATIVE (NEGATIVE); KETONES,URINE NEGATIVE (NEGATIVE); LEUKOCYTE ESTERASE ,URINE NEGATIVE (NEGATIVE); NITRITE,URINE NEGATIVE (NEGATIVE); PH,URINE 6 (4.5-8.0); PROTEIN,URINE NEGATIVE (NEGATIVE); UROBILINOGEN,URINE NORMAL MG/DL (0.0-1.0)
--- NOTE | 2019-10-28 20:45 | NUR ---
ED Nurse Note: pt is refusing toradol injection. ermd notified.
[2019-10-28 20:50] VITALS: BP 105/57
[2019-10-28] MEDS ORDERED: ACETAMINOPHEN-1 EAC1 ORAL (20:54)
[2019-10-28] MEDS ORDERED: Ketorolac 30mg Inj IM ONE (21:00)
--- NOTE | 2019-10-30 07:03 | Emergency Room Report ---
History of Present Illness General Chief Complaint: Pain Source: Patient Present Illness HPI 38-year-old female presents ED for evaluation. Complaining of back pain. Was seen here on 10/17 for the same pain. Was prescribed medications but states the pain has not resolved. States pain started after lifting heavy boxes. Pain is right-sided, throbbing, nonradiating, 8 out of 10. Denies flank pain. Denies nausea or vomiting. Denies fevers or chills. States that she had a dark- colored stool today and was concerned that it may be blood. Denies any abdominal pain. Denies taking blood thinners. Does not take NSAIDs. No other aggravating relieving factors. Denies any other associated symptoms Allergies: Coded Allergies: SULFA (SULFONAMIDE ANTIBIOTICS) (Verified Allergy, Severe, 06/16/18) n/v Patient History Past Medical History: none Past Surgical History: none Pertinent Family History: none Social History: Denies: smoking, alcohol use, drug use Last Menstrual Period: 10/21/2019 Now: No : 1 Para: 1 Immunizations: UTD Reviewed Nursing Documentation: PMH: Agreed; PSxH: Agreed Nursing Documentation-PMH Hx Cardiac Problems: No Hx Hypertension: No Hx Pacemaker: No Hx Asthma: No Hx COPD: No Hx Diabetes: No Hx Cancer: No Hx Gastrointestinal Problems: No Hx Dialysis: No Hx Neurological Problems: No Hx Cerebrovascular Accident: No Hx Seizures: No Review of Systems All Other Systems: negative except mentioned in HPI Physical Exam Vital Signs Date Time Temp Pulse Resp B/P (MAP) Pulse Ox O2 Delivery O2 Flow Rate FiO2 10/28/19 19:33 98.2 73 18 125/79 (94) 97 Room Air Sp02 EP Interpretation: reviewed, normal General Appearance: no apparent distress, alert, GCS 15, non-toxic Head: normocephalic, atraumatic Eyes: bilateral eye normal inspection, bilateral eye PERRL ENT: hearing grossly normal, normal pharynx, no angioedema, normal voice Neck: full range of motion, supple/symm/no masses Respiratory: chest non-tender, lungs clear, normal breath sounds, speaking full sentences Cardiovascular #1: regular rate, rhythm, no edema Cardiovascular #2: 2+ carotid (R), 2+ carotid (L), 2+ radial (R), 2+ radial (L) , 2+ dorsalis pedis (R), 2+ dorsalis pedis (L) Gastrointestinal: normal bowel sounds, non tender, soft, non-distended, no guarding, no rebound Rectal: other - Straightener present. No gross blood Genitourinary: normal inspection, no CVA tenderness Musculoskeletal: normal range of motion, gait/station normal, tender - Paraspinal right-sided lumbar tenderness Neurologic: alert, motor strength/tone normal, oriented x3, sensory intact, responsive, speech normal Psychiatric: judgement/insight normal, memory normal, mood/affect normal, no suicidal/homicidal ideation Reflexes: 3+ bicep (R), 3+ bicep (L), 3+ tricep (R), 3+ tricep (L), 3+ knee (R) , 3+ knee (L) Skin: no rash Lymphatic: no adenopathy Medical Decision Making Diagnostic Impression: Primary Impression: Back pain Qualified Codes: M54.5 - Low back pain ER Course Hospital Course 38-year-old female presents with back pain. Not relieved with pain meds. Also black tarry stool Differential diagnoses include: pyelonephritis, kidney stone, muscle strain, Lspine fracture Clinical course Patient placed on stretcher. After initial history my physical exam reveals female in no acute distress. There is paraspinal tenderness on the right side. No flank pain. No bruising or swelling. No abdominal pain. Straightener present. Rectal exam reveals no gross blood. Guaiac negative. UA negative. I discussed findings with patient. I am not concerned for blood in stool. Based on my assessment I believe the pain is muscular and I agree with prior evaluation. I offered Toradol but patient declined. Will discharge with Tylenol 3. Safe for discharge for close outpatient follow-up. I will provide Ortho referrals Diagnosis - back pain Stable and discharged to home with prescription for Tylenol 3. Followup with PMD. Return to ED if symptoms recur or worsen Labs Test 10/28/19 19:55 Urine Color Pale yellow Urine Appearance Clear Urine pH 6 (4.5-8.0) Urine Specific [place] 1.020 (1.005-1.035) Urine Protein Negative (NEGATIVE) Urine Glucose (UA) Negative (NEGATIVE) Urine Ketones Negative (NEGATIVE) Urine Blood 1+ (NEGATIVE) Urine Nitrite Negative (NEGATIVE) Urine Bilirubin Negative (NEGATIVE) Urine Urobilinogen Normal MG/DL (0.0-1.0) Urine Leukocyte Esterase Negative (NEGATIVE) Urine RBC 0-2 /HPF (0 - 2) Urine WBC 0-2 /HPF (0 - 2) Urine Squamous Epithelial Cells Moderate /LPF (NONE/OCC) Urine Bacteria Few /HPF (NONE) Urine HCG, Qualitative Negative (NEGATIVE) Last Vital Signs Date Time Temp Pulse Resp B/P (MAP) Pulse Ox O2 Delivery O2 Flow Rate FiO2 10/28/19 20:50 98.2 57 18 105/57 97 Room Air Status: improved Disposition: HOME, SELF-CARE Condition: Stable Scripts Acetaminophen With Codeine (T#3) (TYLENOL #3 TAB*) Y Tab 1 TAB ORAL Q8H PRN for For Pain, #12 TAB Prov: Jose Luis Hough MD 10/28/19 Referrals: NON PHYSICIAN (PCP) [facility] Open 24 hour /7 days a week by Appointment Only [address] [facility] [address] Patient Instructions: Back Pain, Adult, [id number] Jose Luis Hough MD Oct 30, 2019 07:03
== END 2019-10-28 20:50 | disposition home or self-care (01) ==
LOC: EMR 20:29
DX: M54.5 Low back pain (principal); Z88.2 Allergy status to sulfonamides
CPT/HCPCS: 81003; 81025; Z7502; 99282

== ENCOUNTER 2019-12-03 19:50 | Emergency (ER) | payer MEDICAID ==
[~2019-12-03] VITALS: Ht 170.2 cm; Wt 59.0 kg
[2019-12-03 20:09] VITALS: BP 100/63
--- NOTE | 2019-12-03 20:10 | Emergency Room Report ---
History of Present Illness General Chief Complaint: Female Urogenital Problems Source: Patient Present Illness [facility] Disclaimer: Please note that this report is being documented using DRAGON technology. This can lead to erroneous entry secondary to incorrect interpretation by the dictating instrument. HPI: 39-year-old female presents for evaluation of vaginal bleeding. Symptoms began last night. LMP was 3/5 and has been having normal periods up to this point. She was experiencing lower pelvic cramping last night without dysuria, frequency or urgency. She used an all natural vaginal insert, "Soledad detox pearls" and remove them this morning. She noted some bright red blood on the tissue while wiping. Noted some suprapubic cramping though this is improving and now almost entirely resolved. She denies any back pain, sweats, chills, fever, dysuria, hematuria, urgency, frequency, vaginal discharge, itching or vaginal pain. No history of fibroids PMH: Denies PSH: Denies Allergies: Sulfa medications Social Hx: Denies drug or alcohol abuse COVID-19 risk:Contact w/high r: No COVID-19 risk:Travel to affect: No Has patient experienced cabello: No Allergies: Coded Allergies: SULFA (SULFONAMIDE ANTIBIOTICS) (Verified Allergy, Severe, 06/16/18) n/v Patient History Last Menstrual Period: 11/19/19 Now: No Nursing Documentation-PMH Past Medical History: No Stated History Hx Cardiac Problems: No Hx Hypertension: No Hx Pacemaker: No Hx Asthma: No Hx COPD: No Hx Diabetes: No Hx Cancer: No Hx Gastrointestinal Problems: No Hx Dialysis: No Hx Neurological Problems: No Hx Cerebrovascular Accident: No Hx Seizures: No Review of Systems All Other Systems: negative except mentioned in HPI Physical Exam Vital Signs Date Time Temp Pulse Resp B/P (MAP) Pulse Ox O2 Delivery O2 Flow Rate FiO2 12/03/19 19:54 97.3 62 19 100/63 (75) 98 Room Air General: Awake and alert, no acute distress HEENT: NC/AT. EOMI. Resp: Normal work of breathing Abdomen: Soft, nontender, nondistended. No masses appreciated. No rebound. Skin: Intact. No abrasions, laceration or rash over the exposed skin MSK: Normal tone and bulk. Moving all extremities. No obvious deformity. Neuro: Awake and alert. Mentating appropriately Medical Decision Making Diagnostic Impression: Primary Impression: UTI (urinary tract infection) Additional Impression: Hematuria ER Course 39-year-old female presents for 1 day of lower pelvic cramping and vaginal spotting. Differential includes but limited to UTI, pyelonephritis, mittelschmerz, foreign body, toxic shock syndrome, ovarian cyst, ovarian torsion. Her belly is soft, no distention, no masses appreciable. Grossly, her urine is clear. She had microscopic hematuria and signs of possible early urinary tract infection. Will treat with Macrobid, first dose given in the ED. She is otherwise asymptomatic and no evidence of sepsis or significant disease. She can follow-up on an outpatient basis with her PMD and MERCHANDISE DIRECTOR. I discussed that she needs repeat urinalysis to reevaluate for hematuria after clearance of infection. She understands reasons to return to the emergency department and agrees with this treatment plan. Last Vital Signs Date Time Temp Pulse Resp B/P (MAP) Pulse Ox O2 Delivery O2 Flow Rate FiO2 12/03/19 19:54 97.3 62 19 100/63 (75) 98 Room Air Disposition: HOME, SELF-CARE Condition: Stable Scripts Nitrofurantoin Monohyd/M-Cryst* (MACROBID 100 MG*) 100 Mg Capsule 100 MG ORAL EVERY 12 HOURS for 5 Days, #10 CAP Prov: Donnell Pascual MD 12/03/19 Donnell Pascual MD Dec 03, 2019 20:10
[2019-12-03 20:19] LABS: APPEARANCE,URINE SLIGHTLY CLOUDY; BILIRUBIN, URINE NEGATIVE (NEGATIVE); COLOR,URINE PALE YELLOW; GLUCOSE, URINE (UA) NEGATIVE (NEGATIVE); KETONES,URINE NEGATIVE (NEGATIVE); LEUKOCYTE ESTERASE ,URINE 1+ (NEGATIVE); NITRITE,URINE NEGATIVE (NEGATIVE); PH,URINE 5 (4.5-8.0); PROTEIN,URINE NEGATIVE (NEGATIVE); UROBILINOGEN,URINE NORMAL MG/DL (0.0-1.0)
[2019-12-03] MEDS ORDERED: NITROFURANTOIN100 M2 ORAL (20:25)
[2019-12-03 20:31] VITALS: BP 100/63
== END 2019-12-03 20:30 | disposition home or self-care (01) ==
LOC: EMR 20:07
DX: N39.0 Urinary tract infection, site not specified (principal); R31.9 Hematuria, unspecified; Z88.2 Allergy status to sulfonamides
CPT/HCPCS: 81003; 81025; Z7502; 99283

== ENCOUNTER 2020-01-31 19:51 | Emergency (ER) | payer MEDICAID ==
[~2020-01-31] VITALS: Ht 170.2 cm; Wt 61.2 kg
[~2020-01-31 19:51] MED LIST changes: +NITROFURANTOIN100 M2 ORAL
[2020-01-31 20:05] VITALS: BP 106/61
--- NOTE | 2020-01-31 20:05 | NUR ---
ED Nurse Note: Pt walked into ED from home for c/o bilat flank pain onset one week ago. Pt also c/o possible bug bites around both ankles. Pt denies any urinary symptoms or trauma to back area. Pt is aaox4, breathing is normal and unlabored and no cardiac distress noted.
--- NOTE | 2020-01-31 20:24 | Emergency Room Report ---
History of Present Illness General Chief Complaint: Lower Back Pain or Injury Present Illness HPI 39-year-old female with no symptom past medical history here complaining of bilateral flank pain that started 1 week ago however denies any urinary frequency and urgency. Patient also reports that she gets muscle spasms a lot. Also complains of painful insect bite bilateral lower ankles. She has been a picture that was more raised and inflamed and wants antibiotics though the ankles appear to be healing. Denies any fever chills, chest pain, shortness of breath, abdominal pain, headache and dizziness. Has not taken medication for symptom relief. 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 COVID-19 Testing Source: no tested Patient History Past Medical History: see triage record Past Surgical History: none Pertinent Family History: none Last Menstrual Period: december Now: No Immunizations: UTD Reviewed Nursing Documentation: PMH: Agreed; PSxH: Agreed Nursing Documentation-PMH Hx Cardiac Problems: No Hx Hypertension: No Hx Pacemaker: No Hx Asthma: No Hx COPD: No Hx Diabetes: No Hx Cancer: No Hx Gastrointestinal Problems: No Hx Dialysis: No Hx Neurological Problems: No Hx Cerebrovascular Accident: No Hx Seizures: No Review of Systems All Other Systems: negative except mentioned in HPI Physical Exam Vital Signs Date Time Temp Pulse Resp B/P (MAP) Pulse Ox O2 Delivery O2 Flow Rate FiO2 01/31/20 19:54 98.1 70 18 106/61 (76) 96 Room Air Sp02 EP Interpretation: reviewed, normal General Appearance: no apparent distress, alert, GCS 15, non-toxic Head: normocephalic, atraumatic Eyes: bilateral eye normal inspection, bilateral eye PERRL ENT: hearing grossly normal, normal pharynx, no angioedema, normal voice Neck: full range of motion, supple/symm/no masses Respiratory: chest non-tender, lungs clear, normal breath sounds, no rhonchi, speaking full sentences Cardiovascular #1: regular rate, rhythm, no edema, no murmur Gastrointestinal: non tender, soft Genitourinary: no CVA tenderness Musculoskeletal: back normal Neurologic: alert, motor strength/tone normal, oriented x3, sensory intact, responsive, speech normal Psychiatric: judgement/insight normal, memory normal, mood/affect normal, no suicidal/homicidal ideation Skin: other - Noninfected insect bites bilateral lower ankles Lymphatic: no adenopathy Medical Decision Making PA Attestation All diagnoses and treatment plans were reviewed and discussed with my supervising physician Dr. Arora Diagnostic Impression: Primary Impression: Lumbar strain Additional Impression: Insect bite ER Course 39-year-old female with no symptom past medical history here complaining of bilateral flank pain that started 1 week ago however denies any urinary frequency and urgency. Patient also reports that she gets muscle spasms a lot. Also complains of painful insect bite bilateral lower ankles. She has been a picture that was more raised and inflamed and wants antibiotics though the ankles appear to be healing. Denies any fever chills, chest pain, shortness of breath, abdominal pain, headache and dizziness. Has not taken medication for symptom relief. Ddx considered but are not limited to: Lumbar spine sprain, strain, fracture, contusion, neuropathy Vital signs: are WNL, pt. is afebrile H&PE are most consistent with: Lumbar strain, insect bite ORDERS: UA, urine , Augmentin, ibuprofen, Robaxin ER intervention: none DISCHARGE: At this time pt. is stable for d/c to home. Will provide printed patient care instructions, and any necessary prescriptions. Care plan and follow up instructions have been discussed with the patient prior to discharge. Take medication as directed, follow primary doctor, avoid strenuous physical activity, if worsening symptoms return to the emergency room Last Vital Signs Date Time Temp Pulse Resp B/P (MAP) Pulse Ox O2 Delivery O2 Flow Rate FiO2 01/31/20 20:05 98.1 70 18 106/61 96 Room Air Disposition: HOME, SELF-CARE Condition: Stable Patient Instructions: Insect Bite, [id number], Low Back Sprain With Rehab- [facility] Additional Instructions: Take medication as directed, follow-up primary doctor, avoid strenuous physical activity, if worsening symptoms return to the emergency room Eulalio Craig January 31, 2020 20:24
[2020-01-31 20:37] LABS: APPEARANCE,URINE CLEAR; BILIRUBIN, URINE NEGATIVE (NEGATIVE); COLOR,URINE PALE YELLOW; GLUCOSE, URINE (UA) NEGATIVE (NEGATIVE); KETONES,URINE NEGATIVE (NEGATIVE); NITRITE,URINE NEGATIVE (NEGATIVE); PROTEIN,URINE NEGATIVE (NEGATIVE); UROBILINOGEN,URINE NORMAL MG/DL (0.0-1.0)
[2020-01-31 20:38] LABS: LEUKOCYTE ESTERASE ,URINE NEGATIVE (NEGATIVE)
[2020-01-31] MEDS ORDERED: ROBAXIN-500MG ORAL (20:45)
[2020-01-31] MEDS ORDERED: AUGMENTIN 875-1 EAC1 ORAL (20:45)
[2020-01-31] MEDS ORDERED: IBUPROFEN600 M1 ORAL (20:45)
[2020-01-31] MEDS ORDERED: ANTI-ITCH28 G1 TP (20:49)
[2020-01-31 20:55] VITALS: BP 110/62
--- NOTE | 2020-01-31 20:55 | NUR ---
ER DISCHARGE NOTE: Patient is cleared to be discharged per ERMD, pt is aox4, on room air, with stable vital signs. pt was given dc and prescription instructions, pt was able to verbalize understanding, pt id band removed. pt is able to ambulate with steady gait. pt took all belongings.
== END 2020-01-31 20:55 | disposition home or self-care (01) ==
LOC: EMR 20:10
DX: S39.012A Strain of muscle, fascia and tendon of lower back, initial encounter (principal); S90.562A Insect bite (nonvenomous), left ankle, initial encounter; S90.561A Insect bite (nonvenomous), right ankle, initial encounter; W57.XXXA Bitten or stung by nonvenomous insect and other nonvenomous arthropods, initial encounter; Y92.9 Unspecified place or not applicable; Z88.2 Allergy status to sulfonamides
CPT/HCPCS: 81003; 81025; Z7502; 99282

== ENCOUNTER 2020-06-09 02:59 | Emergency (ER) | payer MEDICAID ==
[~2020-06-09] VITALS: Ht 170.2 cm; Wt 61.2 kg
[~2020-06-09 02:59] MED LIST changes: +HYDROCORTISONE28 G2 TP; +IBUPROFEN600 M1 ORAL
[2020-06-09 03:09] VITALS: BP 109/71
[2020-06-09] MEDS ORDERED: Acetaminophen 500mg (ES) tab ORAL ONE (03:45)
--- NOTE | 2020-06-09 03:57 | Emergency Room Report ---
History of Present Illness General Chief Complaint: Skin Rash/Abscess Source: Patient Present Illness HPI 39-year-old -[place] female presents with itchy insect bites to the left posterior thigh x2 days. She states "I am going on a flight tomorrow and I need this to be taken care of". "I need a shot of something" She has had previous ER visits for the same thing. Denies fever, chills, nausea, vomiting, diarrhea, melena, hematochezia, hematuria, wheezing, shortness of breath, chest pain or other symptoms. Denies recent travel or sick contacts. The patient's symptoms were gradual onset, severity was moderate, duration since 2 days. Quality: Itchy Past medical history: Denies Past surgical history: Denies Smoking: Denies Alcohol use: Denies Drug use: Denies Review of systems: CONST: No fevers or chills, No night sweats PULMONARY: No productive cough, No shortness of breath CARDIAC: No chest pain, No palpitations GI: No vomiting, No diarrhea , No melena_or_BRBPR : No dysuria, No hematuria, No discharge NEURO: No new_focal_weakness_or_numbness, No confusion, No vision changes 14 point Review of Systems is otherwise negative except per HPI Physical Exam: GENERAL: Awake_alert_ nontoxic, no acute distress Spo2 99% on RA -normal EYES: Extraocular muscles are intact. Conjunctivae clear. Lids without swelling ENT: External nose and ear normal_in_appearance. Oropharynx clear. Head_atraumatic, Moist_oral_mucosa NECK: No JVD. No meningismus. No thyromegaly. Supple. Trachea midline RESP: Normal respiratory effort. Symmetric rise. No stridor. Clear_to_auscultation_No_rales_No_wheezes CARDIAC: Regular rate and regular rhytm. No_significant pedal edema. ABDOMEN: Soft. Nondistended. Nontender_No_rebound_or_guarding. MSK: Normal muscle tone, without rigidity. Extremities without asymmetric deformity or swelling. SKIN: Warm and dry. No visible cyanosis or pallor Small pinpoint lesion to the mid left posterior thigh with overlying erythema. No palpable crepitus. No lymphangitic streaking. No pain out of proportion. No abscess NEUROLOGIC: Alert, oriented x3. Motor_and_sensation_grossly_intact. No truncal ataxia. Gait_normal Psych: Normal mood and affect, normal judgment and insight - COORDINATION OF CARE Case was discussed with: Patient Medical Decision Making/Plan: Medical Decision Making/Plan: DDx: abrasion vs laceration vs folliculitis vs bug bug bite vs abscess Patient is well appearing with stable vital signs. Skin examination is consistent with uncomplicated bite. There is overlying erythema without crepitus or lymphangitic streaking. No complaint of nausea, vomiting, wheezing or SOB to suggest anaphylaxis. Airway is intact. On examination of LLE, distally the patient has capillary refill <2 seconds and strong pulses. There are slight superficial abrasions from where patient has been scratching. There is no pallor or pain out of proportion to exam. The associated extremity has full range of motion without any significant pain or restriction in mobility. There is no crepitus or pain out of proportion to exam and the patient is afebrile and nontoxic. There is no significant redness, induration, tenderness, pus, or evidence of drainable fluid collection. No evidence of septic arthritis, necrotizing fasciitis. Suspect symptoms 2/2 unspecified insect bite with superficial abrasions from scratching. This is recurrent therefore I have counseled patient to wash her clothes in hot water, change her bedsheets, and exterminate for bugs around her house. There is no evidence of scabies. Pt was educated to stop scratching to avoid superimposed bacterial infection. Will give RX for keflex. She received clindamycin in ED. Rx hydrocortisone prn itching. Recommend wound check in 24-48 hrs w PMD Strict return ER precautions given. 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 Patient History Now: No : 1 Para: 1 Nursing Documentation-PMH Hx Cardiac Problems: No Hx Hypertension: No Hx Pacemaker: No Hx Asthma: No Hx COPD: No Hx Diabetes: No Hx Cancer: No Hx Gastrointestinal Problems: No Hx Dialysis: No Hx Neurological Problems: No Hx Cerebrovascular Accident: No Hx Seizures: No Physical Exam Vital Signs Date Time Temp Pulse Resp B/P (MAP) Pulse Ox O2 Delivery O2 Flow Rate FiO2 06/09/20 03:00 97.5 63 107/66 (80) 99 Room Air 06/09/20 03:09 20 Sp02 EP Interpretation: reviewed, normal Medical Decision Making Diagnostic Impression: Primary Impression: Rash and other nonspecific skin eruption Last Vital Signs Date Time Temp Pulse Resp B/P (MAP) Pulse Ox O2 Delivery O2 Flow Rate FiO2 06/09/20 03:09 97.3 63 20 109/71 99 Room Air Disposition: HOME, SELF-CARE Condition: Stable Referrals: [facility] Psych ER - Peds ER - Patient Instructions: Rash Additional Instructions: Instructions for patient/insole rounder: Follow up with your physician in 1-2 days for wound check. Do not scratch. Follow-up with your doctor sooner if your condition requires a more timely clinical reevaluation. Return to the emergency department immediately if you feel that your condition is worsening or if you have any new or concerning symptoms. Review your discharge instructions and take any prescriptions given as instructed. [facility] PROVIDES FREE OR LOW-COST HEALTH SERVICES TO PEOPLE WHO CAN SHOW PROOF THAT THEY LIVE IN [facility]. TO FIND MORE CLINICS PARTNERED WITH [facility] TO PROVIDE SERVICE, PLEASE CALL . Janelle Harris D.O. Jun 09, 2020 03:57
[2020-06-09 04:15] VITALS: BP 110/70
== END 2020-06-09 04:15 | disposition home or self-care (01) ==
LOC: EMR 03:30
DX: R21 Rash and other nonspecific skin eruption (principal); S70.362A Insect bite (nonvenomous), left thigh, initial encounter; W57.XXXA Bitten or stung by nonvenomous insect and other nonvenomous arthropods, initial encounter; Y92.9 Unspecified place or not applicable; S70.312A Abrasion, left thigh, initial encounter; Z88.2 Allergy status to sulfonamides
CPT/HCPCS: 96365; Z7502; 99284; S0077

== ENCOUNTER 2020-07-13 09:38 | Emergency (ER) | payer MEDICAID ==
[~2020-07-13] VITALS: Ht 170.2 cm; Wt 59.0 kg
[2020-07-13 09:48] VITALS: BP 109/73
[2020-07-13] MEDS ORDERED: CEPHALEXIN500 MG ORAL (10:15)
[2020-07-13 10:18] VITALS: BP 109/73
--- NOTE | 2020-07-13 13:48 | Emergency Room Report ---
History of Present Illness General Chief Complaint: Skin Rash/Abscess Source: Patient Present Illness HPI 39-year-old female presents complaining of pain and swelling. Notes to her inner thigh on the right. Has been there for 1 week. Notes a bump with swelling and pain. Dull, 8 out of 10, nonradiating. Denies fevers or chills. Denies any discharge. No other aggravating relieving factors. Denies any other associated symptoms Allergies: Coded Allergies: SULFA (SULFONAMIDE ANTIBIOTICS) (Verified Allergy, Severe, 06/16/18) n/v COVID-19 Screening Contact w/high risk pt: No Recent Travel to affected area: No Experienced COVID-19 symptoms?: No COVID-19 Testing performed PIT SUPERVISOR: No - 2 months ago COVID-19 Screening: Negative COVID-19 COVID-19 Testing Source: clinic Patient History Past Medical History: none Past Surgical History: none Pertinent Family History: none Social History: Denies: smoking, alcohol use, drug use Last Menstrual Period: 06/18/20 Now: No Immunizations: UTD Reviewed Nursing Documentation: PMH: Agreed; PSxH: Agreed Nursing Documentation-PMH Past Medical History: No Stated History Hx Cardiac Problems: No Hx Hypertension: No Hx Pacemaker: No Hx Asthma: No Hx COPD: No Hx Diabetes: No Hx Cancer: No Hx Gastrointestinal Problems: No Hx Dialysis: No Hx Neurological Problems: No Hx Cerebrovascular Accident: No Hx Seizures: No Review of Systems All Other Systems: negative except mentioned in HPI Physical Exam Vital Signs Date Time Temp Pulse Resp B/P (MAP) Pulse Ox O2 Delivery O2 Flow Rate FiO2 07/13/20 09:43 98.2 81 19 109/73 (85) 98 07/13/20 09:48 Room Air Sp02 EP Interpretation: reviewed, normal General Appearance: no apparent distress, alert, GCS 15, non-toxic Head: normocephalic, atraumatic Eyes: bilateral eye normal inspection, bilateral eye PERRL ENT: hearing grossly normal, normal pharynx, no angioedema, normal voice Neck: full range of motion, supple/symm/no masses Respiratory: chest non-tender, lungs clear, normal breath sounds, speaking full sentences Cardiovascular #1: regular rate, rhythm, no edema Cardiovascular #2: 2+ carotid (R), 2+ carotid (L), 2+ radial (R), 2+ radial (L), 2+ dorsalis pedis (R), 2+ dorsalis pedis (L) Gastrointestinal: normal bowel sounds, non tender, soft, non-distended, no gua rding, no rebound Rectal: deferred Genitourinary: normal inspection, no CVA tenderness Musculoskeletal: back normal, normal range of motion, gait/station normal, non- tender Neurologic: alert, motor strength/tone normal, oriented x3, sensory intact, responsive, speech normal Psychiatric: judgement/insight normal, memory normal, mood/affect normal, no suicidal/homicidal ideation Reflexes: 3+ bicep (R), 3+ bicep (L), 3+ tricep (R), 3+ tricep (L), 3+ knee (R), 3+ knee (L) Skin: other - Erythema, bump to inner thigh on the right. Applications Engineer [employer] present. No fluctuance or discharge. Lymphatic: no adenopathy Medical Decision Making Diagnostic Impression: Primary Impression: Cellulitis Qualified Codes: L03.90 - Cellulitis, unspecified ER Course Hospital Course 33-year-old female presents to ED with redness, swelling to right knee Differential diagnoses include: Cellulitis, dermatitis, insect bite, abscess Clinical course Patient placed on stretcher. After initial history, physical exam reveals a young female in no acute distress. Applications Engineer [employer] present. On exam there is erythema and a bump in the right inner thigh region. No fluctuance or discharge. I discussed findings with patient. Will discharge home with antibiotics. Afebrile, nontoxic-appearing. Safe for discharge close outpatient follow-up. Diagnosis -cellulitis stable and discharged to home with prescription for Keflex. Instructed to followup with PMD. Instructed return to ED if symptoms recur or worsen Last Vital Signs Date Time Temp Pulse Resp B/P (MAP) Pulse Ox O2 Delivery O2 Flow Rate FiO2 07/13/20 10:18 98.2 78 19 109/73 98 Room Air Status: improved Disposition: HOME, SELF-CARE Condition: Stable Scripts Cephalexin* (KEFLEX*) 500 Mg Capsule 500 MG ORAL EVERY 6 HOURS for 7 Days, #28 CAP Prov: Jose Luis Hough MD 07/13/20 Referrals: NOT CHOSEN IPA/,REFERRING H [facility] Patient Instructions: Cellulitis, [id number] Jose Luis Hough MD Jul 13, 2020 13:48
== END 2020-07-13 10:18 | disposition home or self-care (01) ==
LOC: EMR 10:09
DX: L03.90 Cellulitis, unspecified (principal); Z88.2 Allergy status to sulfonamides
CPT/HCPCS: 99282

== ENCOUNTER 2020-08-04 22:23 | Emergency (ER) | payer MEDICAID ==
[~2020-08-04] VITALS: Ht 170.2 cm; Wt 61.2 kg
--- NOTE | 2020-08-04 23:00 | NUR ---
ED Nurse Note: Recieved pt being walked in to bed by triage nurse, pt is ambulating and immediately states "i fuckin hate it here, all these stupid nurses, i been here before, yall dont know what yall are doing", attempted to calm pt and ask why is she here and provide comfort pt yelling and shouting profanity at nurse and all staff, pt refuses to gown or be placed on monitoring, pt states she dont need to tell the nurses "shit", she only needs to talk to the doctor and "hurry up", immediately at pt bedside.
--- NOTE | 2020-08-04 23:09 | Emergency Room Report ---
History of Present Illness General Chief Complaint: Vaginal Source: Patient Present Illness HPI Patient presents with 4 days of vaginal bleeding. She has been filling 4-5 pads fairly completely. She denies passing clots. She also has pain in her lower abdomen is 8/10. She has had problems like this before had ultrasounds but never told that she had fibroids. She is not sure whether she is at this time. She has had some nausea. Last menstruation was July 06. She is 2 para 1. She denies any dysuria or vaginal discharge. She denies fevers or chills. She said she took Motrin yesterday and it helped somewhat with the pain. She is mainly concerned about the problem. Patient denies exposure to Covid positive contacts. No sore throat, chest pain, palpitations, diarrhea, shortness of breath, joint pain, rashes, dizziness, headache. Seen in past for multiple skin infections and bug bites. 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 Last Menstrual Period: 07/06/20 : 2 Para: 1 Reviewed Nursing Documentation: PMH: Agreed; PSxH: Agreed Nursing Documentation-PMH Hx Cardiac Problems: No Hx Hypertension: No Hx Pacemaker: No Hx Asthma: No Hx COPD: No Hx Diabetes: No Hx Cancer: No Hx Gastrointestinal Problems: No Hx Dialysis: No Hx Neurological Problems: No Hx Cerebrovascular Accident: No Hx Seizures: No Review of Systems All Other Systems: negative except mentioned in HPI Physical Exam Vital Signs Date Time Temp Pulse Resp B/P (MAP) Pulse Ox O2 Delivery O2 Flow Rate FiO2 08/04/20 22:34 98.1 62 20 103/61 (75) 98 Room Air Sp02 EP Interpretation: reviewed, normal General Appearance: well appearing, no apparent distress, GCS 15, non-toxic Head: normocephalic Eyes: bilateral eye normal inspection, bilateral eye PERRL, bilateral eye EOMI ENT: moist mucus membranes Neck: supple Respiratory: normal inspection Cardiovascular #1: regular rate, rhythm Cardiovascular #2: 2+ radial (R) Gastrointestinal: normal inspection, normal bowel sounds, no mass, non- distended, no guarding, no rebound, tenderness - Reported suprapubic Genitourinary: no CVA tenderness, deferred - For ultrasound Musculoskeletal: back normal, normal range of motion, gait/station normal Neurologic: alert, oriented x3, grossly normal Psychiatric: mood/affect normal Skin: no rash, warm/dry Medical Decision Making Diagnostic Impression: Primary Impression: Dysfunctional uterine bleeding Additional Impression: Fibroid ER Course Patient presents with heavy vaginal bleeding lower abdominal pain. Differential includes ectopic , heavy menstruation, ovarian cyst, urinary tract infection, fibroids amongst others. Evaluation with labs and ultrasound. IV hydration and analgesia discussed with patient. She says she does not want to be treated for pain at this time. Patient refusing blood and IV. VSS - we will continue with ultrasound evaluation. Ultrasound with fibroid. Patient verbally abusive to staff. Walked out of ED, then returned more calm. Discussed findings with patient. Discussed need for labs. She agreed. Also Motrin ordered. CBC normal. CMP normal. Coags normal. Urinalysis clear. negative. Review of ultrasound, labs and treatment plan with patient. Improved with treatment. Understands treatment plan and need for follow up. Patient stable for outpatient observation and treatment. Laboratory Tests Test 08/04/20 23:40 Urine Color Yellow Urine Appearance Clear Urine pH 5 (4.5-8.0) Urine Specific [place] 1.025 (1.005-1.035) Urine Protein Negative (NEGATIVE) Urine Glucose (UA) Negative (NEGATIVE) Urine Ketones Negative (NEGATIVE) Urine Blood 1+ (NEGATIVE) H Urine Nitrite Negative (NEGATIVE) Urine Bilirubin Negative (NEGATIVE) Urine Urobilinogen Normal MG/DL (0.0-1.0) Urine Leukocyte Esterase Negative (NEGATIVE) Urine RBC 0-2 /HPF (0 - 2) Urine WBC 0 /HPF (0 - 2) Urine Squamous Epithelial Cells Few /LPF (NONE/OCC) Urine Bacteria None /HPF (NONE) Urine HCG, Qualitative Negative (NEGATIVE) CT/MRI/US Diagnostic Results CT/MRI/US Diagnostic Results : Imaging Test Ordered: ultrasound pelvis Impression fibroids Last Vital Signs Date Time Temp Pulse Resp B/P (MAP) Pulse Ox O2 Delivery O2 Flow Rate FiO2 08/05/20 01:38 98.1 20 103/61 98 Room Air 08/05/20 01:37 78 Status: improved Disposition: HOME, SELF-CARE Condition: Improved Scripts Ondansetron Odt* (ZOFRAN ODT*) 4 Mg Tab.rapdis 4 MG BC EVERY 8 HOURS, #6 TAB 1 Refill Prov: Shaun Arora MD 08/05/20 Ibuprofen* (MOTRIN*) 600 Mg Tablet 600 MG ORAL Q6H PRN for FOR PAIN, #20 TAB 0 Refills Prov: Shaun Arora MD 08/05/20 Referrals: NON PHYSICIAN (PCP) Shaun Arora MD Aug 04, 2020 23:09
--- NOTE | 2020-08-04 23:20 | NUR ---
ED Nurse Note: Pt sitting in bed talking on phone, continues to speak profanity language to all staff as they walk by her room, pt yelled and spoke angrily to MD also, pt continues to refuse lab work, v/s, or to gown, only stating, "just give me a dam ultrasound and tell me something, yall stupid", pt intimidating nurses as they attempt to chart, calling staff names and profanity, pt waiting for bedside ultrasound
--- NOTE | 2020-08-04 23:35 | NUR ---
ED Nurse Note: certified master safe technician has arrived and performing pt bedside ultrasound, pt is pleasant and appropriate with technical inspector, continues to refuse all labs, stating "i dont need no fuckin labs you stupid bitch", aware of pt behavior and refusal of care, will continue to monitor as much as pt allows, no staff has spoken back to or responded to pt thrashing.
[2020-08-05 00:01] LABS: APPEARANCE,URINE CLEAR; BILIRUBIN, URINE NEGATIVE (NEGATIVE); GLUCOSE, URINE (UA) NEGATIVE (NEGATIVE); KETONES,URINE NEGATIVE (NEGATIVE); LEUKOCYTE ESTERASE ,URINE NEGATIVE (NEGATIVE); NITRITE,URINE NEGATIVE (NEGATIVE); PH,URINE 5 (4.5-8.0); PROTEIN,URINE NEGATIVE (NEGATIVE); UROBILINOGEN,URINE NORMAL MG/DL (0.0-1.0)
[2020-08-05 00:05] LABS: COLOR,URINE YELLOW
--- NOTE | 2020-08-05 00:40 | NUR ---
ED Nurse Note: MD convinced pt to have labs done, pt refuses to have any "black nurses" do draw, also refusing another nurse stating "no fat nurses either" so refused nurse Meseret to do them, pt also states "i dont want no foreigners either", refusing charge nurse lang, pt did allow Sherwin, triage nurse to draw after he refused to do so if pt will not stop verbally abusing staff, pt responded with "just hurry up", labs were drawn and sent, pt in bed waiting for results, pulled curtain completely open, raised bed to highest height, threw all linen at staff to middle of room and yelling and shouting at everyone whom walks by, threatning another nurse in facility also. MD and charge nurse is asware of pt actions, security informed of behavior to be on alert for assistance if needed.
--- NOTE | 2020-08-05 01:04 | Diagnostic Imaging Report ---
EXAM: US Pelvis Transabdominal, Complete CLINICAL HISTORY: ABD PAIN TECHNIQUE: Real-time complete transabdominal pelvic ultrasound with image documentation. COMPARISON: 06/21/16. FINDINGS: Uterus/cervix: The uterus is heterogeneous and measures 9.0 x 5.0 cm. The endometrium measures 5.3 mm and is hyperechoic. Multiple hypoechoic structures demonstrated within the uterine fundus suggestive of uterine fibroids, the one located along the right anterior uterus measuring 1.4 cm and the one in the right posterior uterus measuring 1.3 cm. Right ovary: Right ovary measures 3.2 x 1.7 x 2.0 cm. Normal blood flow. Left ovary: The left ovary measures 2.8 x 1.4 x 1.6 cm. Normal blood flow. Free fluid: No free fluid. Bladder: Unremarkable as visualized. Wall is normal thickness for degree of distention. IMPRESSION: Uterine fibroids as described above. Remainder of the pelvis ultrasound unremarkable.
[2020-08-05 01:07] LABS: BASOPHILS % (AUTO) 0.9 % (0.0-2.0); EOSINOPHILS % (AUTO) 2.6 % (0.0-3.0); HEMATOCRIT 44.3 % (37.0-47.0); HEMOGLOBIN 14.3 G/DL (12.0-16.0); LYMPHOCYTES % (AUTO) 54.1 % (20.0-45.0); MEAN CORPUSCULAR VOLUME 94 FL (80-99); MONOCYTES % (AUTO) 6.9 % (1.0-10.0); NEUTROPHILS % (AUTO) 35.6 % (45.0-75.0); PLATELET COUNT 154 K/UL (150-450); RED BLOOD COUNT 4.73 M/UL (4.20-5.40); RED CELL DISTRIBUTION WIDTH 12.3 % (11.6-14.8); WHITE BLOOD COUNT 5.1 K/UL (4.8-10.8)
[2020-08-05 01:19] LABS: ANION GAP 5 mmol/L (5-15); BLOOD UREA NITROGEN 15 mg/dL (7-18); CALCIUM 9.5 MG/DL (8.5-10.1); CARBON DIOXIDE 29 MMOL/L (21-32); CHLORIDE 105 MMOL/L (98-107); CREATININE 0.9 MG/DL (0.55-1.30); POTASSIUM 3.7 MMOL/L (3.5-5.1); SODIUM 139 MMOL/L (136-145)
[2020-08-05 01:23] LABS: ALANINE AMINOTRANSFERASE 35 U/L (12-78); ALBUMIN/GLOBULIN RATIO 1.1 (1.0-2.7); ALKALINE PHOSPHATASE 77 U/L (46-116); ASPARTATE AMINO TRANSFERASE 22 U/L (15-37); BILIRUBIN,TOTAL 0.6 MG/DL (0.2-1.0)
[2020-08-05] MEDS ORDERED: ONDANSETRON ODT4 MG BC (01:26)
[2020-08-05] MEDS ORDERED: IBUPROFEN600 M1 ORAL (01:26)
[2020-08-05 01:37] VITALS: BP 120/70
[2020-08-05 01:38] VITALS: BP 103/61
--- NOTE | 2020-08-05 01:39 | NUR ---
dischrged home with instruction and rx follow up with pmd
== END 2020-08-05 01:35 | disposition home or self-care (01) ==
LOC: EMR 22:57
DX: N93.8 Other specified abnormal uterine and vaginal bleeding (principal); D25.9 Leiomyoma of uterus, unspecified; Z88.2 Allergy status to sulfonamides; F12.90 Cannabis use, unspecified, uncomplicated
CPT/HCPCS: 36415; 76830; 76856; 80053; 81003; 81025; 83690; 85025; 85610; 85730; Z7502; 99282

== ENCOUNTER 2020-09-21 20:20 | Emergency (ER) | payer MEDICAID ==
[~2020-09-21] VITALS: Ht 170.2 cm; Wt 59.0 kg
[2020-09-21 20:35] VITALS: BP 90/56
--- NOTE | 2020-09-21 20:35 | NUR ---
ED Nurse Note: Patient walked into ED c/o generalized weakness onset for the past 3 days now. patient complaints of no pain. patient is alert and oriented x4, at time of triage, patient's systolic blood pressure currently in the 60s. IV started on right forearm 20 gauge. patient placed in quality assurance monitor fouiza. will continue to monitor
[2020-09-21 20:52] VITALS: BP 109/73
--- NOTE | 2020-09-21 21:03 | Emergency Room Report ---
History of Present Illness General Chief Complaint: Generalized Weakness Source: Patient Present Illness HPI Disclaimer: Please note that this report is being documented using [employer] technology. This can lead to erroneous entry secondary to incorrect interpretation by the dictating instrument. HPI: 47-year-old female no reported past medical history presents complaining of generalized weakness and sweating. She states she has felt this way for the past 4 days. She denies any pain nausea vomiting diarrhea or urinary complaints. She denies any medical history. Currently not on any medications. Shortness of breath cough or fever. No sick contacts. Allergies: Coded Allergies: SULFA (SULFONAMIDE ANTIBIOTICS) (Verified Allergy, Severe, 06/16/18) n/v COVID-19 Screening Contact w/high risk pt: No Recent Travel to affected area: No Experienced COVID-19 symptoms?: No COVID-19 Testing performed MACHINE BENDER: No Patient History Now: No Reviewed Nursing Documentation: PMH: Agreed; PSxH: Agreed Nursing Documentation-PMH Hx Cardiac Problems: No Hx Hypertension: No Hx Pacemaker: No Hx Asthma: No Hx COPD: No Hx Diabetes: No Hx Cancer: No Hx Gastrointestinal Problems: No Hx Dialysis: No Hx Neurological Problems: No Hx Cerebrovascular Accident: No Hx Seizures: No Review of Systems All Other Systems: negative except mentioned in HPI Physical Exam Vital Signs Date Time Temp Pulse Resp B/P (MAP) Pulse Ox O2 Delivery O2 Flow Rate FiO2 09/21/20 20:29 97.9 58 20 67/38 (48) 96 Room Air Sp02 EP Interpretation: reviewed, normal General Appearance: well appearing, no apparent distress Head: normocephalic, atraumatic Eyes: bilateral eye PERRL, bilateral eye EOMI ENT: hearing grossly normal, moist mucus membranes Neck: full range of motion, supple Respiratory: lungs clear, normal breath sounds, no rhonchi, no respiratory distress, no retraction, no wheezing Cardiovascular #1: normal peripheral pulses, no murmur, bradycardia Gastrointestinal: non tender, soft, non-distended, no guarding Neurologic: alert, oriented x3, no focal defects Skin: normal color, warm/dry Medical Decision Making Diagnostic Impression: Primary Impression: Generalized weakness ER Course MDM: Differential diagnosis included but not limited to dehydration, anemia, electrolyte disturbance, symptomatic bradycardia to name a few Clinical course-IV inserted IV fluids given. Laboratory studies unremarkable negative urinalysis showed no signs of infection. Patient was bradycardic in the ER however she has a history of bradycardia. I have low suspicion for emergent medical process at this time will discharge patient home with follow-up with PMD and encourage p.o. hydration. Low suspicion for COVID- 19 at this time. Labs - Laboratory Tests Test 09/21/20 20:47 White Blood Count 5.2 K/UL (4.8-10.8) Red Blood Count 4.54 M/UL (4.20-5.40) Hemoglobin 13.5 G/DL (12.0-16.0) Hematocrit 42.4 % (37.0-47.0) Mean Corpuscular Volume 93 FL (80-99) Mean Corpuscular Hemoglobin 29.8 PG (27.0-31.0) Mean Corpuscular Hemoglobin Concent 31.9 G/DL (32.0-36.0) L Red Cell Distribution Width 12.6 % (11.6-14.8) Platelet Count 161 K/UL (150-450) Mean Platelet Volume 7.6 FL (6.5-10.1) Neutrophils (%) (Auto) % (45.0-75.0) Lymphocytes (%) (Auto) % (20.0-45.0) Monocytes (%) (Auto) % (1.0-10.0) Eosinophils (%) (Auto) % (0.0-3.0) Basophils (%) (Auto) % (0.0-2.0) Differential Total Cells Counted 100 Neutrophils % (Manual) 32 % (45-75) L Lymphocytes % (Manual) 61 % (20-45) H Monocytes % (Manual) 6 % (1-10) Eosinophils % (Manual) 1 % (0-3) Basophils % (Manual) 0 % (0-2) Band Neutrophils 0 % (0-8) Platelet Estimate Adequate Platelet Morphology Normal Red Blood Cell Morphology Normal Urine Color Pale yellow Urine Appearance Very cloudy Urine pH 7 (4.5-8.0) Urine Specific [place] 1.010 (1.005-1.035) Urine Protein Negative (NEGATIVE) Urine Glucose (UA) Negative (NEGATIVE) Urine Ketones Negative (NEGATIVE) Urine Blood Negative (NEGATIVE) Urine Nitrite Negative (NEGATIVE) Urine Bilirubin Negative (NEGATIVE) Urine Urobilinogen Normal MG/DL (0.0-1.0) Urine Leukocyte Esterase Negative (NEGATIVE) Urine RBC 0 /HPF (0 - 2) Urine WBC 0 /HPF (0 - 2) Urine Squamous Epithelial Cells Few /LPF (NONE/OCC) Urine Amorphous Sediment Many /LPF (NONE) H Urine Bacteria Few /HPF (NONE) Urine HCG, Qualitative Negative (NEGATIVE) Sodium Level 141 MMOL/L (136-145) Potassium Level 4.0 MMOL/L (3.5-5.1) Chloride Level 109 MMOL/L (98-107) H Carbon Dioxide Level 28 MMOL/L (21-32) Anion Gap 4 mmol/L (5-15) L Blood Urea Nitrogen 19 mg/dL (7-18) H Creatinine 0.9 MG/DL (0.55-1.30) Estimated Glomerular Filtration Rate > 60 mL/min (>60) Glucose Level 114 MG/DL (74-106) H Calcium Level 9.3 MG/DL (8.5-10.1) Total Bilirubin 0.5 MG/DL (0.2-1.0) Aspartate Amino Transferase (AST) 15 U/L (15-37) Alanine Aminotransferase (ALT) 20 U/L (12-78) Alkaline Phosphatase 67 U/L (46-116) Troponin I 0.000 ng/mL (0.000-0.056) Total Protein 7.2 G/DL (6.4-8.2) Albumin 3.7 G/DL (3.4-5.0) Globulin 3.5 g/dL On reevaluation: Patient remained in no acute distress Plan-discharge home with follow-up with PMD. EKG Diagnostic Results Rate: normal Rhythm: other ST Segments: no acute changes Last Vital Signs Date Time Temp Pulse Resp B/P (MAP) Pulse Ox O2 Delivery O2 Flow Rate FiO2 09/21/20 20:52 97.9 48 20 109/73 96 Room Air Status: improved Disposition: HOME, SELF-CARE Condition: Stable Referrals: NON PHYSICIAN (PCP) Bran Kim M.D. Sep 21, 2020 21:03
[2020-09-21 21:06] LABS: HEMATOCRIT 42.4 % (37.0-47.0); HEMOGLOBIN 13.5 G/DL (12.0-16.0); MEAN CORPUSCULAR VOLUME 93 FL (80-99); PLATELET COUNT 161 K/UL (150-450); RED BLOOD COUNT 4.54 M/UL (4.20-5.40); RED CELL DISTRIBUTION WIDTH 12.6 % (11.6-14.8); WHITE BLOOD COUNT 5.2 K/UL (4.8-10.8)
[2020-09-21 21:14] LABS: APPEARANCE,URINE VERY CLOUDY; BILIRUBIN, URINE NEGATIVE (NEGATIVE); COLOR,URINE PALE YELLOW; GLUCOSE, URINE (UA) NEGATIVE (NEGATIVE); KETONES,URINE NEGATIVE (NEGATIVE); LEUKOCYTE ESTERASE ,URINE NEGATIVE (NEGATIVE); NITRITE,URINE NEGATIVE (NEGATIVE); PH,URINE 7 (4.5-8.0); PROTEIN,URINE NEGATIVE (NEGATIVE); UROBILINOGEN,URINE NORMAL MG/DL (0.0-1.0)
[2020-09-21 21:19] LABS: ANION GAP 4 mmol/L (5-15); BLOOD UREA NITROGEN 19 mg/dL (7-18); CALCIUM 9.3 MG/DL (8.5-10.1); CARBON DIOXIDE 28 MMOL/L (21-32); CHLORIDE 109 MMOL/L (98-107); CREATININE 0.9 MG/DL (0.55-1.30); SODIUM 141 MMOL/L (136-145)
[2020-09-21 21:26] LABS: ALANINE AMINOTRANSFERASE 20 U/L (12-78); ALBUMIN 3.7 G/DL (3.4-5.0); ASPARTATE AMINO TRANSFERASE 15 U/L (15-37); BILIRUBIN,TOTAL 0.5 MG/DL (0.2-1.0)
[2020-09-21 21:27] LABS: ALKALINE PHOSPHATASE 67 U/L (46-116)
[2020-09-21 22:00] VITALS: BP 128/79
--- NOTE | 2020-09-21 22:00 | NUR ---
ER DISCHARGE NOTE: Patient is cleared to be discharged per ERMD, pt is aox4, on room air, with stable vital signs. pt was given dc instructions, pt was able to verbalize understanding, pt id band and iv site removed without complications. pt is able to ambulate with steady gait. pt took all belongings.
--- NOTE | 2020-09-23 12:57 | Cardiology Report ---
APPROVED REPORT EKG Measurement Heart [id number] <Conclusion> Sinus bradycardia with premature atrial complexes Possible Left atrial enlargement Septal infarct, age undetermined Abnormal ECG
== END 2020-09-21 22:00 | disposition home or self-care (01) ==
LOC: EMR 20:41
DX: R53.1 Weakness (principal); Z88.2 Allergy status to sulfonamides
CPT/HCPCS: 36415; 80053; 81003; 81025; 84484; 85007; 85025; 93005; 96360; Z7502; 99284

== ENCOUNTER 2020-11-03 07:26 | Emergency (ER) | payer MEDICAID ==
[~2020-11-03] VITALS: Ht 170.2 cm; Wt 61.7 kg
--- NOTE | 2020-11-03 07:51 | Emergency Room Report ---
History of Present Illness General Chief Complaint: Female Urogenital Problems Source: Patient Present Illness HPI Patient is a 39-year-old female who presents for increased low back pain. Reports having no period for approximately 2 months. States that she had taken a test which was negative. Denies any nausea vomiting or other secondary signs of . Denies any recent fever or abdominal cramping. Denies any abnormal Pap smears in the past. Had recent ultrasound which showed fibroid uterus. 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 COVID-19 Screening: Negative COVID-19 COVID-19 Testing Source: nasal Patient History Past Medical History: see triage record Last Menstrual Period: 09/04/20 Reviewed Nursing Documentation: PMH: Agreed; PSxH: Agreed Nursing Documentation-PMH Past Medical History: No Stated History Hx Cardiac Problems: No Hx Hypertension: No Hx Pacemaker: No Hx Asthma: No Hx COPD: No Hx Diabetes: No Hx Cancer: No Hx Gastrointestinal Problems: No Hx Dialysis: No Hx Neurological Problems: No Hx Cerebrovascular Accident: No Hx Seizures: No Review of Systems All Other Systems: negative except mentioned in HPI Physical Exam Vital Signs Date Time Temp Pulse Resp B/P (MAP) Pulse Ox O2 Delivery O2 Flow Rate FiO2 11/03/20 07:32 97.9 69 16 106/64 (78) 99 Room Air General Appearance: well appearing, no apparent distress, alert, GCS 15 Head: normocephalic, atraumatic ENT: hearing grossly normal, normal voice Neck: full range of motion, supple Respiratory: normal inspection, no respiratory distress, speaking full sentences Cardiovascular #1: normal inspection Gastrointestinal: normal inspection, normal bowel sounds, soft Musculoskeletal: normal inspection Neurologic: normal gait Psychiatric: mood/affect normal Skin: no rash Medical Decision Making Diagnostic Impression: Primary Impression: Amenorrhea, unspecified ER Course Patient presented for missed period. Differential diagnosis include was not limited to , secondary amenorrhea, fibroids among others.Patient has an overall benign exam does not appear to require any laboratory testing at this time. Patient's urine test was negative. No evidence of urinary infection. Patient appears to be stable for outpatient management. She is advised to follow-up with her primary care physician for recheck patient to return if worse. Patient was advised to follow-up with [facility] for further work- up of amenorrhea.This medical record is generated with [employer] atmospheric physicist software. There may be some atmospheric physicist discrepancies related to use of this software Labs Test 11/03/20 07:30 Urine Color Pale yellow Urine Appearance Clear Urine pH 6.5 (4.5-8.0) Urine Specific [place] 1.005 (1.005-1.035) Urine Protein Negative (NEGATIVE) Urine Glucose (UA) Negative (NEGATIVE) Urine Ketones Negative (NEGATIVE) Urine Blood Negative (NEGATIVE) Urine Nitrite Negative (NEGATIVE) Urine Bilirubin Negative (NEGATIVE) Urine Urobilinogen Normal MG/DL (0.0-1.0) Urine Leukocyte Esterase Negative (NEGATIVE) Urine HCG, Qualitative Negative (NEGATIVE) Last Vital Signs Date Time Temp Pulse Resp B/P (MAP) Pulse Ox O2 Delivery O2 Flow Rate FiO2 11/03/20 07:32 97.9 69 16 106/64 (78) 99 Room Air Status: improved Disposition: HOME, SELF-CARE Condition: Stable Scripts Diclofenac Sodium (VOLTAREN) 100 Gm Gel..gram. 5 GM TP TWICE A DAY for pain, #100 GM Prov: Alex Jeff MD 11/03/20 Alex Jeff MD Nov 03, 2020 07:51
--- NOTE | 2020-11-03 07:53 | NUR ---
ED Nurse Note: pt stated that she hasn't had a period for two months and wasn't sure what was going on. denies pain or discomfort
[2020-11-03 07:54] VITALS: BP 106/64
[2020-11-03 08:00] LABS: APPEARANCE,URINE CLEAR; BILIRUBIN, URINE NEGATIVE (NEGATIVE); COLOR,URINE PALE YELLOW; GLUCOSE, URINE (UA) NEGATIVE (NEGATIVE); KETONES,URINE NEGATIVE (NEGATIVE); LEUKOCYTE ESTERASE ,URINE NEGATIVE (NEGATIVE); NITRITE,URINE NEGATIVE (NEGATIVE); PH,URINE 6.5 (4.5-8.0); PROTEIN,URINE NEGATIVE (NEGATIVE); UROBILINOGEN,URINE NORMAL MG/DL (0.0-1.0)
[2020-11-03] MEDS ORDERED: VOLTAREN100 G1 TP (08:16)
[2020-11-03 08:24] VITALS: BP 113/70
== END 2020-11-03 08:36 | disposition home or self-care (01) ==
LOC: EMR 08:20
DX: N91.2 Amenorrhea, unspecified (principal); Z88.2 Allergy status to sulfonamides
CPT/HCPCS: 81003; 81025; Z7502; 99283